=== PATIENT | female | born 1945 ===

== ENCOUNTER 2016-11-13 13:11 | Day surgery (SDC) | payer MEDICARE, BC ==
[2015-10-14 12:07] VITALS: PULSE 68
[2016-11-12 06:53] VITALS: BMI 38.4
[2016-11-13 13:41] LABS: ADD MANUAL DIFF? NO
[2016-11-13 13:45] LABS: BASO # 0.03 K/mm3 (0.0-2.0); BASO % 0.5 % (0.0-3.0); EOS # 0.3 (0.0-0.7); EOS % 5.2 % (1.5-5.0); GRAN # 3.38 (1.4-6.5); GRAN % 60.9 % (50.0-68.0); HEMATOCRIT 38.3 % (36.0-48.0); LYMPH # 1.4 (1.2-3.4); LYMPH % 25.7 % (22.0-35.0); MEAN CELL VOLUME 84.4 fL (80.0-105.0); MEAN CORPUSCULAR HEMOGLOBIN 27.8 pg (25.0-35.0); MEAN CORPUSCULAR HGB CONC 32.9 g/dl (31.0-37.0); MEAN PLATELET VOLUME 10.7 fl (7.0-11.0); MONO # 0.4 (0.1-0.6); MONO % 7.7 % (1.0-6.0); PLATELET COUNT 199 10^3/uL (120.0-450.0); RED CELL DISTRIBUTION WIDTH 15.6 % (11.5-14.5); WHITE BLOOD COUNT 5.6 10^3/ul (4.5-11.0)
[2016-11-13 13:52] LABS: CALCIUM 9.5 mg/dL (8.4-10.5)
[2016-11-13 13:55] LABS: INR 0.99 (0.93-1.08); PARTIAL THROMBOPLASTIN TIME 24.6 Seconds (23.7-30.8)
[2016-11-13] MEDS ORDERED: Lidocaine 2% Inj (20ml) ONE (14:35)
--- NOTE | 2016-11-13 14:43 | CP.SDSHP ---
Same Day Surgery H & P - History Proposed Procedure: Insertion of venous port Pre-Op Diagnosis: Breast Ca - Previous Medical/Surgical History Cardiac: Hypertension, Previous PA, Arrhythmia (A Fib), Other (CAD) Pulmonary: Asthma, Other (Sleep apnea,on CPAP) Endocrine/Metabolic: Diabetes, Obesity Misc: Other (History of detached retina L eye,arthritis ,DVT L leg,anxiety, Gastric ulcers,colon polyps,R breast Ca.Strong family history of cancer.) Pain: 0. 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 - Allergies Allergies: Allergies iodine Allergy (Intermediate, Verified 10/14/15 12:21) HIVES, ITCHING shellfish derived Allergy (Intermediate, Verified 10/14/15 12:21) HIVES, ITCHING - Physical Exam General Appearance: Elderly ,obese female Mental Status: Alert & Oriented x3 Neuro: WNL Heart: WNL Lungs: WNL - {Optional Preform as Required} Breast: Other (Old scars on R breast) Abdomen: WNL - Impression Impression: R breast Ca - Date & Time Date: 11/13/16 Time: 14:43 Short Stay Discharge - Short Stay Discharge Admitting Diagnosis/Reason for Visit: BREAST CA C50.911 Disposition: HOME/ ROUTINE Referrals: Rosmery Go MD [Primary Care Provider] -
[2016-11-13] MEDS ORDERED: Midazolam 2 MG/2 ML VIAL ONE (15:42)
[2016-11-13] MEDS ORDERED: Oxycodone/Acetaminophen 5/325 mg Tab PO PRN (16:41)
[2016-11-13] MEDS ORDERED: Sodium Chloride 0.45% 1,000 ML IV SCH (16:45)
[2016-11-13 16:46] VITALS: O2SAT 98
[2016-11-13 17:33] VITALS: RESP 20; TEMP 97.9
[2016-11-13 18:14] VITALS: BP 146/61; PULSE 60
--- NOTE | 2016-11-13 19:53 | VASCULAR ---
PROCEDURE: Ultrasound and fluoroscopic right internal jugular venous access port. CLINICAL HISTORY: Breast carcinomaVenous port for chemotherapy. PHYSICIAN(S): Satish Geronimo M.D. TECHNIQUE: The relative risks and indications of the procedure were explained to the patient and consent obtained. The patient was placed supine on the arteriogram table and the right neck and chest prepped and draped in the usual sterile fashion. Conscious sedation monitoring was provided throughout the procedure by a nurse. Antibiotics were given prior to the procedure. Under direct ultrasound guidance, the right internal jugular vein was punctured with a micro-puncture set. A 0.035 angled Glidewire was advanced into the IVC. A 4 cm incision was made at the right clavicle and the pocket blunted dissected. A 8 Italian single-lumen catheter, 21 cm long, was advanced to the SVC/RA junction. The catheter was trimmed and attached to the port. The port aspirates and injects easily. The port was placed in the pocket and closed in 2 layers. The patient tolerated the procedure well. IMPRESSION: Ultrasound and fluoroscopically placed right internal jugular venous access port.
== END 2016-11-13 19:00 | disposition home or self-care (01) ==
LOC: SDSVAS 13:11
PROVIDERS: ATTEND Radiology Vascular & Interventional Radiology
DX: C50.911 Malignant neoplasm of unspecified site of right female breast (principal); E11.9 Type 2 diabetes mellitus without complications; E66.9 Obesity, unspecified; F41.9 Anxiety disorder, unspecified; G47.30 Sleep apnea, unspecified; I10 Essential (primary) hypertension; I25.10 Atherosclerotic heart disease of native coronary artery without angina pectoris; J45.909 Unspecified asthma, uncomplicated; I25.2 Old myocardial infarction; Z86.718 Personal history of other venous thrombosis and embolism; Z86.010 Personal history of colon polyps; Z87.19 Personal history of other diseases of the digestive system; Z45.2 Encounter for adjustment and management of vascular access device; Z80.9 Family history of malignant neoplasm, unspecified; I48.91 Unspecified atrial fibrillation; M19.90 Unspecified osteoarthritis, unspecified site; H54.42 Blindness, left eye, normal vision right eye; Z86.69 Personal history of other diseases of the nervous system and sense organs

== ENCOUNTER 2016-12-03 15:27 | Inpatient (IN) | payer MEDICARE, BC ==
[2016-12-03 15:27] VITALS: PULSE 68; BMI 38.4
--- NOTE | 2016-12-03 15:57 | ED PDOC ---
Arrival/HPI - General Time Seen by Provider: 12/03/16 15:43 Historian: Patient - History of Present Illness Narrative History of Present Illness (Text): 12/03/16 15:49 A 71 year old female, whose past medical history includes diabetes, breast CA s/ p chemotherpay 2 weeks ago, [place] with non-obstructive CAD, atrial fibrillation, DVT and PE on Eliquis, presents to the emergency department complaining of worsening chest pain over the past 2 hours. Patient describes the pain as a sharp sensation radiating to left arm. Patient states she took Tylenol and Xanax , with no relief. Patient reports she received Neupogen yesterday and today. Patient notes a cough and headache but denies any fever, chills, nausea, vomiting, diarrhea, abdominal pain, urinary symptoms, shortness of breath, dizziness or any other complaints. PMD: Dr. Quintero Oncologist: Dr. Zabala Guitar Teacher: Dr. 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) Symptom Course: Worsening Quality: Other Context: Other Past Medical History - Provider Review Nursing Documentation Reviewed: Yes - Infectious Disease Hx of Infectious Diseases: None - Tetanus Immunization Tetanus Immunization: Unknown - Cardiac Hx Pacemaker: No - Pulmonary Hx Respiratory Disorders: Yes Hx Asthma: Yes - Neurological Hx Paralysis: No - HEENT Hx HEENT Disorder: Yes Hx Blind: Yes (LEFT EYE BLIND X4 YEARS) - Renal Hx Renal Disorder: No - Endocrine/Metabolic Hx Endocrine Disorders: Yes Hx Diabetes Mellitus Type 2: Yes - Hematological/Oncological Hx Blood Transfusions: No Hx Blood Transfusion Reaction: No - Integumentary Hx Dermatological Disorder: No - Musculoskeletal/Rheumatological Hx Musculoskeletal Disorders: Yes - Gastrointestinal Hx Gastrointestinal Disorders: Yes Other/Comment: RECTAL BLEEDING X2 YEARS - Genitourinary/Gynecological Hx Genitourinary Disorders: No - Psychiatric Hx Emotional Abuse: No Hx Physical Abuse: No Hx Substance Use: No - Surgical History Hx Cardiac Catheterization: Yes Other/Comment: L knee - Anesthesia Hx Anesthesia Reactions: Yes (HEART RATE DROPPED) Hx Malignant Hyperthermia: No - Suicidal Assessment Feels Threatened In Home Enviroment: No Family/Social History - Physician Review Nursing Documentation Reviewed: Yes Family/Social History: No Known Family HX Smoking Status: Never Smoked Hx Alcohol Use: No Hx Substance Use: No Hx Substance Use Treatment: No Allergies/Home Meds Allergies/Adverse Reactions: Allergies iodine Allergy (Intermediate, Verified 10/14/15 12:21) HIVES, ITCHING shellfish derived Allergy (Intermediate, Verified 10/14/15 12:21) HIVES, ITCHING Home Medications: Home Meds Medication Instructions Recorded Confirmed Linaclotide [Linzess] 1 cap PO QPM 12/25/14 11/13/16 Albuterol Sulfate [Proair Hfa] 2 puff IH BID PRN 07/30/15 11/13/16 Glimepiride [amaRYL] 4 mg PO BID 07/30/15 11/13/16 Pantoprazole [Protonix EC Tab] 40 mg PO QAM 07/30/15 11/13/16 Acetaminophen [Tylenol] 500 mg PO DAILY PRN 09/14/15 11/13/16 Insulin Glargine, Recombina 30 - 40 unit SC HS PRN 09/14/15 11/13/16 [Lantus] Insulin Lispro [humALOG] 8 - 20 units SC AC PRN 09/14/15 11/13/16 Apixaban [Eliquis] 2.5 mg PO BID 11/12/16 11/12/16 Cholecalciferol (Vitamin D3) 50,000 unit PO FRANCISCA 11/12/16 11/13/16 [Vitamin D3] Empagliflozin [Jardiance] 10 mg PO DAILY 11/12/16 11/13/16 Metoprolol Succinate [Toprol XL] 12.5 mg PO QAM 11/12/16 11/13/16 Umeclidinium [place] [Incruse 62.5 mcg IH DAILY 11/13/16 11/13/16 Ellipta] Losartan [Cozaar] 50 mg PO DAILY 12/03/16 12/03/16 Rosuvastatin Calcium [Crestor] 5 mg PO QPM 12/03/16 12/03/16 Review of Systems - Physician Review All systems were reviewed & negative as marked: Yes - Review of Systems Constitutional: absent: Fevers, Night Sweats Respiratory: Cough. absent: SOB Cardiovascular: Chest Pain Gastrointestinal: absent: Abdominal Pain, Diarrhea, Nausea, Vomiting Genitourinary Female: absent: Dysuria, Frequency, Hematuria, Urine Output Changes Neurological: Headache. absent: Dizziness Physical Exam Vital Signs Reviewed: Yes Vital Signs Temp Pulse Resp BP Pulse Ox 12/03/16 18:51 66 18 158/58 H 100 12/03/16 18:24 60 20 198/59 H 100 12/03/16 16:13 60 18 144/55 L 100 12/03/16 15:27 98.1 F 60 16 199/76 H 100 Temperature: Afebrile Blood Pressure: Hypertensive Pulse: Regular Respiratory Rate: Normal Appearance: Positive for: Well-Appearing, Non-Toxic, Comfortable Pain Distress: None Mental Status: Positive for: Alert and Oriented X 3 - Systems Exam Head: Present: Atraumatic, Normocephalic Pupils: Present: PERRL Conjunctiva: Present: Normal Mouth: Present: Moist Mucous Membranes Neck: Present: Normal Range of Motion Respiratory/Chest: Present: Clear to Auscultation, Good Air Exchange. No: Respiratory Distress, Accessory Muscle Use Cardiovascular: Present: Regular Rate and Rhythm, Normal S1, S2. No: Murmurs Abdomen: Present: Normal Bowel Sounds. No: Tenderness, Distention, Peritoneal Signs Back: Present: Normal Inspection Upper Extremity: Present: Normal Inspection. No: Cyanosis, Edema Lower Extremity: Present: Normal Inspection. No: Edema Neurological: Present: GCS=15, CN II-XII Intact, Speech Normal Skin: Present: Warm, Dry, Normal Color. No: Rashes Psychiatric: Present: Alert, Oriented x 3, Normal Insight, Normal Concentration Medical Decision Making ED Course and Treatment: 12/03/16 15:49 Impression: A 71 year old female with sharp chest pain radiating to left arm. Differential Diagnosis included but are not limited to: ACS vs. neupogen reaction vs. PE vs. muscular pain Plan: -- Chest xray -- Lung perfusion scan -- Duplex lower extremity ultrasound -- Labs -- Urine culture and Urinalysis -- Aspirin and Nitroglycerin -- Reassess and disposition EKG: NSR @ 62; normal intervals; normal axis; no ST/T changes. Prior Visits: Notes and results from previous visits were reviewed. Patient had a cardiac catheterization performed on 11/13/16. Progress Notes: 12/03/16 18:11 On re-evaluation, patient notes mild to moderate improvement in pain after receiving one sublingual nitrate. 12/03/16 19:46 Patient with noted history - given nitro with moderate relief of pain. BP much improved on nitro. EKG is normal as is CXR. Labs are nondiagnostic, including negative CE. She is on eliquis. LE doppler negative and v/q is low prob. Patient with improved cp but still present; given low dose of morphine. Case discussed with Dr. Phillips, who said to place on Dr. Quintero's service for further observation; confirmed with Dr. Quintero for her service. Will consult with Dr. Roque. - Lab Interpretations Lab Results: 12/03/16 16:00 12/03/16 16:00 Lab Results 12/03/16 16:00: Sodium 137, Potassium 4.5, Chloride 105, Carbon Dioxide 28, Anion Gap 9 L, BUN 23 H, Creatinine 1.0, Est GFR ( Amer) > 60, Est GFR ( Non-Af Amer) 55, Random Glucose 364 H* D, Calcium 8.4, Magnesium 1.8, Total Bilirubin 0.7, AST 16, ALT 36, Alkaline Phosphatase 100, Lactate Dehydrogenase 605, Total Creatine Kinase 23 L, Troponin I < 0.01, NT-Pro-B Natriuret Pep 796 H , Total Protein 5.5 L, Albumin 3.0, Globulin 2.5, Albumin/Globulin Ratio 1.2, Lipase 102 12/03/16 16:00: PT 11.2, INR 1.04, APTT 25.2 12/03/16 16:00: WBC 2.9 L* D, RBC 3.69, Hgb 10.2 L, Hct 31.5 L, MCV 85.4, MCH 27.6, MCHC 32.4, RDW 15.4 H, Plt Count 164, MPV 10.0, Gran % 61.3, Lymph % (Auto ) 23.9, Dickson % (Auto) 9.7 H, Eos % (Auto) 4.8, Baso % (Auto) 0.3, Gran # 1.77, Lymph # 0.7 L, Dickson # 0.3, Eos # 0.1, Baso # 0.01 I have reviewed the lab results: Yes - RAD Interpretation Radiology Orders: 12/03/16 15:52 DUPLEX LOWER EXTRM VEIN BILAT [US] Stat 12/03/16 15:54 CHEST ONE VIEW [RAD] Stat 12/03/16 15:56 LUNG PERF & VENT SCAN [NM] Stat - Medication Orders Current Medication Orders: Discontinued Medications Aspirin (Aspirin Chewable) 324 mg PO STAT STA Stop: 12/03/16 15:56 Last Admin: 12/03/16 16:08 Dose: 324 mg Sodium Chloride (Sodium Chloride 0.9%) 500 mls @ 999 mls/hr IV .Q31M STA Stop: 12/03/16 17:26 Last Admin: 12/03/16 18:23 Dose: 999 mls/hr Insulin Human Regular (Humulin R) 6 units IVP ONCE STA Stop: 12/03/16 16:57 Last Admin: 12/03/16 18:22 Dose: 6 units Morphine Sulfate (Morphine) 2 mg IVP STAT STA Stop: 12/03/16 18:11 Last Admin: 12/03/16 18:21 Dose: 2 mg Nitroglycerin (Nitrostat Sl Tab) 0.4 mg SL STAT STA Stop: 12/03/16 15:58 Last Admin: 12/03/16 16:10 Dose: 0.4 mg Nitroglycerin (Nitro-Bid 2% Oint) 1 ea TOP STAT STA Stop: 12/03/16 18:12 Last Admin: 12/03/16 18:21 Dose: 1 ea - Scribe Statement The provider has reviewed the documentation as recorded by the Denise Arzola Provider Scribe Attestation: All medical record entries made by the Scribe were at my direction and personally dictated by me. I have reviewed the chart and agree that the record accurately reflects my personal performance of the history, physical exam, medical decision making, and the department course for this patient. I have also personally directed, reviewed, and agree with the discharge instructions and disposition. Disposition/Present on Arrival - Present on Arrival Any Indicators Present on Arrival: Yes History of DVT/PE: Yes History of Uncontrolled Diabetes: Yes Urinary Catheter: No History Surgical Site Infection Following: None - Disposition Have Diagnosis and Disposition been Completed?: Yes Diagnosis: Uncontrolled diabetes mellitus, Chest pain Disposition: HOSPITALIZED Disposition Time: 18:30 Patient Plan: Observation, Telemetry Condition: FAIR Discharge Instructions (ExitCare): Chest Pain (ED)
[2016-12-03 16:14] LABS: ADD MANUAL DIFF? NO
[2016-12-03 16:26] LABS: BASO # 0.01 K/mm3 (0.0-2.0); BASO % 0.3 % (0.0-3.0); EOS # 0.1 (0.0-0.7); EOS % 4.8 % (1.5-5.0); GRAN # 1.77 (1.4-6.5); GRAN % 61.3 % (50.0-68.0); HEMATOCRIT 31.5 % (36.0-48.0); LYMPH # 0.7 (1.2-3.4); LYMPH % 23.9 % (22.0-35.0); MEAN CELL VOLUME 85.4 fL (80.0-105.0); MEAN CORPUSCULAR HEMOGLOBIN 27.6 pg (25.0-35.0); MEAN CORPUSCULAR HGB CONC 32.4 g/dl (31.0-37.0); MONO # 0.3 (0.1-0.6); MONO % 9.7 % (1.0-6.0); PLATELET COUNT 164 10^3/uL (120.0-450.0); RED CELL DISTRIBUTION WIDTH 15.4 % (11.5-14.5)
[2016-12-03 16:30] LABS: INR 1.04 (0.93-1.08); PARTIAL THROMBOPLASTIN TIME 25.2 Seconds (23.7-30.8)
[2016-12-03 16:31] LABS: ALB/GLOB RATIO 1.2 (1.1-1.8); ALKALINE PHOSPHATASE 100 U/L (38-133); ALT/SGPT 36 U/L (7-56); AST/SGOT 16 U/L (15-39); BILIRUBIN,TOTAL 0.7 mg/dL (0.2-1.3); BLOOD UREA NITROGEN 23 mg/dL (7-21); CALCIUM 8.4 mg/dL (8.4-10.5); CARBON DIOXIDE 28 mmol/L (21-33); CHLORIDE 105 mmol/L (98-107); GFR AFRICAN-AMERICAN > 60; LIPASE 102 U/L (23-300); MAGNESIUM 1.8 mg/dL (1.7-2.2); POTASSIUM 4.5 mmol/L (3.6-5.0); SODIUM 137 mmol/L (132-148); TOTAL PROTEIN 5.5 g/dL (5.8-8.3); WHITE BLOOD COUNT 2.9 10^3/ul (4.5-11.0)
[2016-12-03 16:33] LABS: GLUCOSE,RANDOM 364 mg/dL (70-110)
[2016-12-03 16:46] LABS: TROPONIN I < 0.01 ng/mL
[2016-12-03] MEDS ORDERED: Insulin Regular 1 UNITS/0.01 ML ML IVP STA (16:56)
[2016-12-03] MEDS ORDERED: Sodium Chloride 0.9% 500 ML IV STA (16:56)
[2016-12-03] MEDS ORDERED: Morphine 2 mg/ml ISec IVP STA (18:10)
[2016-12-03] MEDS ORDERED: Nitroglycerin 2% Ointment Foilpak UD TOP STA (18:11)
--- NOTE | 2016-12-03 18:26 | NM ---
VQ scan Technique: 30.0 mCi DTPA inhaled. 3.3 mCI technetium 99-m MAA administered intravenously Correlation is made to chest x-ray of same day. Findings: Perfusion images do not show a mismatched segmental defect. Activity extends expected margin of the lung periphery. Hilar clumping of radiopharmaceutical may represent underlying COPD. Mild tracheal activity related to the DTPA incidentally noted. Impression: Low probability for pulmonary embolus.
--- NOTE | 2016-12-03 18:29 | RAD ---
HISTORY: cp COMPARISON: Chest x-ray performed 10/16/15 TECHNIQUE: Chest, one view. FINDINGS: Right IJ approach central venous catheter extends the cavoatrial junction. Examination limited by habitus. LUNGS: No focal consolidation. Please note that chest x-ray has limited sensitivity for the detection of pulmonary masses. PLEURA: No significant pleural effusion identified. No definite pneumothorax . CARDIOVASCULAR: Mild cardiomegaly. OSSEOUS STRUCTURES: Degenerative changes. VISUALIZED UPPER ABDOMEN: Unremarkable. OTHER FINDINGS: None. IMPRESSION: Right IJ approach central venous catheter extends the cavoatrial junction. Mild cardiomegaly.
[2016-12-03] MEDS ORDERED: Morphine 2 mg/ml ISec IVP PRN (20:20)
[2016-12-03] MEDS ORDERED: Nitroglycerin 2% Ointment Foilpak UD TOP PRN (20:20)
--- NOTE | 2016-12-03 21:10 | CON ---
DATE: 12/03/[address] Zabala. CHIEF COMPLAINT: Chest pain. HISTORY OF PRESENT ILLNESS: The patient is a 71-year-old female seen earlier today in Dr. Zabala's office for Neupogen treatment as she is being treated for breast cancer. With Neupogen given yesterd ay and today with the patient now reporting retrosternal chest discomfort for approximately 7 or 8/10 , nonradiating for the past 1-2 hours. There is minimal radiation to the left arm. The patient did take Xanax and Tylenol without relief with the patient now being admitted for observation through the Emergency Room as per Dr. Go and Dr. Tolentino. At present, she appears comfortable and in no acute distress after treatment given. ALLERGIES: IODINE AND SHELLFISH. MEDICATIONS: Include as of 11/18/16, Losartan HCT 100/12.5, Eliquis 2.5 mg twice a day, metoprolol, folic acid, vitamin D, Protonix, atropine eyedrops, Jardiance, Crestor, glimepiride, Linzess, Lantus insulin, Humalog insulin, ProAir inhaler, Incruse Ellipta, Brovana. PAST MEDICAL HISTORY: Significant for arteriosclerotic vascular heart disease, atrial fibrillation, hypertension, asthma, blindness in the left eye, diabetes mellitus, arthritis, history of rectal blee d, history of heart attack, HI, detached retina, cellulitis of the foot, depression, tachybrady syndr ome, obesity, hypercoagulable state with positive MTHFR gene. The patient also suffers from breast cancer stage I for which she is being treated and for which Neup ogen was given yesterday and today. It should be noted that the patient did have a similar episode where she was admitted for chest pain on 10/14/2015 with HI ruled out at that time. She was taking Coumadin at the time of workup as per Cindy Roque with an abnormal stress test then with a history of DVT also at that time and the patient is now on Eliquis as her anticoagulant. FAMILY HISTORY AND SOCIAL HISTORY: Noncontributory. Nonsmoker and non-ethanol. REVIEW OF SYSTEMS: Essentially negative to questioning except as above. PHYSICAL EXAMINATION: VITAL SIGNS: Temperature 98.1, pulse 66, respirations 18, blood pressure 131/ , pulse ox 100%. HEENT: She is blind in the left eye, otherwise unremarkable. NECK: Supple. HEART: Tachy rate, regular rhythm. Occasional ectopic beat. LUNGS: Clear. ABDOMEN: Soft, obese, nontender. EXTREMITIES: No edema. SKIN: Warm, dry and clear. NEUROLOGIC: Awake, alert and oriented. The patient's weight is 206 pounds, height is 5 feet 2 inches. LABORATORY DATA: The patient's labs were done. White blood cell count of 2.9 with an absolute neutr ophil count of 1.7, hemoglobin 10.2, hematocrit 31.5, platelet count of 164,000. INR of 1.04 with a chem panel showing a nonfasting glucose of 364, BUN of 22 with a normal creatinine of 1.0. Troponin less than 0.01, B-natriuretic peptide is 796. Otherwise, normal chem panel. The patient did have a VQ scan done earlier today. The impression was a low probability for pulmonar y embolism. She had a chest x-ray done earlier today. It was read as right IJ approach central veno us catheter extends to the cavoatrial junction, mild cardiomegaly. She had an EKG done, which was re ad by Dr. Tolentino as normal sinus rhythm at 62. No ST-T changes. She had a Doppler ultrasound of the lower extremities which is to be read. ASSESSMENT: Chest pain, rule out cardiac etiology versus secondary to Neupogen; diabetes mellitus, h ypercoagulable state on Eliquis, blindness in the left eye, arteriosclerotic vascular heart disease, hypertension, asthma, degenerative joint disease, history of rectal bleed, depression, anxiety, gastr oesophageal reflux disease, neutropenia for which the patient did get Neupogen for the past 2 days as she is status post treatment recently with Dr. Zabala in the office. PLAN: After conversation with Dr. Zabala and Dr. Tolentino, we will admit the patient to her primary do ctor, Dr. Go's service with consult with Dr. Roque, cardiology, who knows the patient. W e will monitor clinically. Labs will be drawn in the morning with serial cardiac enzymes, troponin, with diabetic medicines restarted as per Dr. Go with nitro paste p.r.n. q. 6 hours to be continued, with oxygen to continue. Prognosis for this patient is guarded. We will monitor clinica lly and with labs. Paul Phillips MD cc: [phone] TT: 12/03/2016 21:09:23 Confirmation # [id number] Dictation # [id number] mn
[2016-12-03] MEDS: Insulin Reg-MEDIUM-Coverage SC SCH (21:54)
--- NOTE | 2016-12-03 22:07 | CARD ---
APPROVED REPORT EKG Measurement Heart [id number] <Conclusion> Normal sinus rhythm Normal ECG
[2016-12-03] MEDS: Insulin Detemir 100 units/ml Vial (Levemir) SC SCH (23:04)
[2016-12-04] MEDS ORDERED: cefTRIAXone 1 gm 1 GM/100 ML BAG IVPB STA (02:20)
--- NOTE | 2016-12-04 02:45 | CP.PCM.PN ---
Subjective - Date & Time of Evaluation Date of Evaluation: 12/04/16 Time of Evaluation: 02:32 - Subjective Subjective: I was on the floor.Nurse tells me that troponin level is 0.03 and temp. is 100.9 *F. Patient was seen at bedside. Complains of cold , congestion, sore throat, cough, with yellow phlegm, had chills when came to ER, also has increased frequency of urination.Denies having infection in skin. Has no other complaints. This 71 year old woman came to ER with chest pain. Has PMH of breast cancer, HTN, DE, atrial fibrillation, DM, asthma, depression, blindness in left eye, atrterisclerotic heart disease. Objective - Vital Signs/Intake and Output Vital Signs (last 24 hours): Temp Pulse Resp BP Pulse Ox 100.9 F H 61 20 161/58 H 94 L 12/04/16 01:46 12/04/16 02:00 12/04/16 00:01 12/04/16 00:01 12/03/16 23:36 - Medications Medications: Current Medications Acetaminophen (Tylenol 325mg Tab) 650 mg PO Q6H PRN PRN Reason: Fever >100.4 F Last Admin: 12/04/16 01:46 Dose: 650 mg Alprazolam (Xanax) 0.125 mg PO BID PRN; Protocol PRN Reason: Anxiety Stop: 12/10/16 20:18 Apixaban (Eliquis) 2.5 mg PO BID NIEVES PRN Reason: Protocol Last Admin: 12/03/16 20:13 Dose: 2.5 mg Arformoterol Tartrate (Brovana) 15 mcg IH [id number] [facility] Atorvastatin Calcium (Lipitor) 10 mg PO DIN [facility] Last Admin: 12/03/16 20:13 Dose: 10 mg Folic Acid (Folic Acid) 1 mg PO DAILY NIEVES Glimepiride (Amaryl) 4 mg PO DAILY [facility] Ceftriaxone Sodium (Rocephin 1 Gram Ivpb) 1 gm in 100 mls @ 200 mls/hr IVPB STAT STA PRN Reason: Protocol Stop: 12/04/16 02:49 Insulin Detemir (Levemir) 30 unit SC HS [facility] Last Admin: 12/03/16 23:04 Dose: 30 unit Insulin Human Regular (Humulin R Med) 0 units SC ACHS NIEVES PRN Reason: Protocol Last Admin: 12/03/16 21:54 Dose: Not Given Losartan Potassium (Cozaar) 100 mg PO DAILY [facility] Metoprolol Tartrate (Lopressor) 12.5 mg PO BID [facility] Last Admin: 12/03/16 20:14 Dose: Not Given Morphine Sulfate (Morphine) 1 mg IVP Q3H PRN PRN Reason: Pain, severe (8-10) Nitroglycerin (Nitro-Bid 2% Oint) 1 ea TOP Q6H PRN PRN Reason: Pain, moderate (4-7) Last Admin: 12/04/16 01:43 Dose: 1 ea Pantoprazole Sodium (Protonix Ec Tab) 20 mg PO DAILY [facility] - Labs Labs: PT 11.2 Seconds (9.9-11.8) 12/03/16 16:00 INR 1.04 (0.93-1.08) 12/03/16 16:00 APTT 25.2 Seconds (23.7-30.8) 12/03/16 16:00 Assessment and Plan - Assessment and Plan (Free Text) Assessment: Fever. Chest pain. R/O PNA. R/O UTI. Breast cancer. HTN. DM. Arteriosclerotic heart disease. Plan: Tylenol 650 mg PO x 1. Repeat troponin in AM. CBC with Diff.stat. Blood cultures stat. UA stat Urine c & S stat. Sputum for culture stat. Rocephin 1 GM IV stat. May need to repeat CXR. Continue present management.
[2016-12-04 02:46] LABS: HEMATOCRIT 29.3 % (36.0-48.0); MEAN CELL VOLUME 84.4 fL (80.0-105.0); MEAN CORPUSCULAR HEMOGLOBIN 27.1 pg (25.0-35.0); MEAN CORPUSCULAR HGB CONC 32.1 g/dl (31.0-37.0); PLATELET COUNT 131 10^3/uL (120.0-450.0); RED CELL DISTRIBUTION WIDTH 15.4 % (11.5-14.5); WHITE BLOOD COUNT 3.6 10^3/ul (4.5-11.0)
[2016-12-04 03:01] LABS: ADD MANUAL DIFF? YES
[2016-12-04 04:13] LABS: BAND 3 % (0-2); EOSINOPHIL 2 % (0.0-3.0); NEUTROPHIL 64 % (50.0-70.0)
[2016-12-04 06:17] LABS: ADD MANUAL DIFF? NO
[2016-12-04 06:26] LABS: BASO # 0.04 K/mm3 (0.0-2.0); BASO % 1.1 % (0.0-3.0); EOS # 0.2 (0.0-0.7); EOS % 4.1 % (1.5-5.0); GRAN # 2.39 (1.4-6.5); HEMATOCRIT 29.8 % (36.0-48.0); LYMPH # 0.8 (1.2-3.4); LYMPH % 20.9 % (22.0-35.0); MEAN CELL VOLUME 85.1 fL (80.0-105.0); MEAN CORPUSCULAR HEMOGLOBIN 27.4 pg (25.0-35.0); MEAN CORPUSCULAR HGB CONC 32.2 g/dl (31.0-37.0); MEAN PLATELET VOLUME 9.6 fl (7.0-11.0); MONO # 0.3 (0.1-0.6); MONO % 9.2 % (1.0-6.0); PLATELET COUNT 147 10^3/uL (120.0-450.0); RED CELL DISTRIBUTION WIDTH 15.6 % (11.5-14.5); WHITE BLOOD COUNT 3.7 10^3/ul (4.5-11.0)
[2016-12-04 06:32] LABS: GRAN % 64.7 % (50.0-68.0)
[2016-12-04 06:40] LABS: URINE BILIRUBIN NEGATIVE (NEGATIVE); URINE BLOOD NEGATIVE (NEGATIVE); URINE GLUCOSE (UA) >=1000 mg/dL (NEGATIVE); URINE KETONE NEGATIVE (NEGATIVE); URINE LEUKOCYTE ESTERASE NEGATIVE Leu/uL (NEGATIVE); URINE PROTEIN >=300 mg/dL (<30 mg/dL); URINE UROBILINOGEN 0.2 E.U./dL (<1 E.U./dL)
[2016-12-04 06:40] LABS: ALB/GLOB RATIO 1.1 (1.1-1.8); BILIRUBIN,TOTAL 0.5 mg/dL (0.2-1.3); POTASSIUM 4.1 mmol/L (3.6-5.0); TOTAL PROTEIN 5.1 g/dL (5.8-8.3)
[2016-12-04 06:53] LABS: TROPONIN I 0.03 ng/mL
[2016-12-04 07:12] LABS: URINE APPEARANCE SL CLOUDY (CLEAR); URINE COLOR YELLOW (YELLOW)
[2016-12-04 07:17] LABS: URINE BACTERIA MOD (NEG); URINE RBC 0 - 2 /hpf (0-2); URINE WBC 0 - 2 /hpf (0-6)
[2016-12-04] MEDS: Arformoterol 15 mcg/2 ml Inh Sol IH SCH ×2 (07:48→19:56)
[2016-12-04] MEDS: Insulin Reg-MEDIUM-Coverage SC SCH ×4 (08:17→21:56)
--- NOTE | 2016-12-04 08:52 | US ---
HISTORY: Leg pain and swelling. Evaluate for DVT PHYSICIAN(S): Satish Geronimo MD. TECHNIQUE: Duplex sonography and color-flow Doppler with graded compression were used to evaluate the deep venous systems of both lower extremities. FINDINGS: The visualized deep venous systems of both lower extremities are sonographically normal and compressible. Normal wave forms and augmentation are seen. There is no sonographic evidence for deep venous thrombosis in the visualized segments of both lower extremities. IMPRESSION: No sonographic evidence for deep venous thrombosis in the visualized segments of both lower extremities.
[2016-12-04] MEDS: Pantoprazole 20 mg EC Tab PO SCH (09:33)
--- NOTE | 2016-12-04 10:02 | HP ---
CHIEF COMPLAINT: Substernal chest pain radiating to the left ribs for 1 day. HISTORY OF PRESENT ILLNESS: A 79-year-old female with history of type 2 diabetes mellitus, asthma, coronary artery disease and newly diagnosed breast cancer. The patient is undergoing chemotherapy. She just had second dose of chemotherapy last week and then Neupogen shot 2 days ago. The patient was evaluated in oncologist's office when complained about substernal chest pain that started earlier today with pain radiating to the left ribs and lateral chest. The patient denied any diaphoresis, heart palpitation, dizziness. The patient had slight dry cough when in Emergency Room. PAST MEDICAL HISTORY: Significant for type 2 diabetes mellitus, hypertension, hyperlipidemia, coronary artery disease, status post cardiac catheterization in October of last year with nonobstructive CAD. The patient developed breast cancer last year, currently undergoing chemotherapy with Dr. Zabala. The patient has history of asthma, osteoarthritis, atrial fibrillation. MEDICATIONS: The patient is currently on anticoagulation with Eliquis 2.5 mg twice a day. Her present medications: Lantus 30 units at night, Humalog 5-10 units with meals, Crestor 5 mg daily, metoprolol 12.5 mg daily, Protonix 40 mg daily, Brovana twice a day, glimepiride 4 mg twice a day, vitamin D 50,000 weekly, alprazolam 0.125 at night. ALLERGIES: THE PATIENT HAS KNOWN ALLERGIES TO IODINE, SHELLFISH, but no allergy to medications. FAMILY HISTORY: Significant for coronary artery disease and diabetes. SOCIAL HISTORY: The patient denies any smoking, alcohol or any drug use. The patient is retired. She lives with her . The patient is independent of activity of daily living. REVIEW OF SYSTEMS: The patient denies any loss of appetite, weight loss. She denied any fever at home. She denies any sore throat, nasal congestion. The patient complains of some dry cough, but denies any shortness of breath. The patient has chest pain radiating to the left ribs and lateral chest. Denies any diaphoresis. She experienced heart palpitations sometimes. Denies any dizziness or loss of consciousness. The patient has occasional epigastric pain and heartburn. Denies any nausea, vomiting, diarrhea or rectal bleeding. The patient denies any flank pain, dysuria, or hematuria. She complains of back pain and knee problems. The patient denies any blurry vision, numbness, weakness, loss of consciousness or headaches. The patient has anxiety, but denies any depression or suicidal thoughts. PHYSICAL EXAMINATION: VITAL SIGNS: The patient had fever this morning 100.9. During evaluation, her temperature is 98.6, her pulse is 93 , blood pressure 126/63, respiratory rate 20, oxygen saturation is 96% on 2 L nasal cannula. GENERAL: The patient is alert, awake, oriented. HEENT: Head is normocephalic, atraumatic. Oral mucosa is moist. NECK: Supple, no neck masses. LUNGS: Clear to auscultation. No wheezing. HEART: With ____ rhythm, 80 per minute. ABDOMEN: Soft, nontender, nondistended. There is tenderness of lower sternum and left anterior rib area on palpation. EXTREMITIES: With no edema, cyanosis or clubbing. DIAGNOSTIC TESTS: Her EKG in the Emergency Room showed normal sinus rhythm with no ST changes. Chest x-ray was negative for any infiltration. Her VQ scan was negative for PE. LABORATORY TESTS: Significant for leukopenia 2.9 with hemoglobin 10.2, hematocrit 31.5, and platelet count 164. This morning, her WBC improved and is at 3.7 with hemoglobin 9.6. Her chemistry was normal. Her troponin first set was normal at 0.01. Repeated troponin was 0.03 on 2 occasions. Her first random glucose was very high at 364. This morning, her sugar was 144. Her BNP was 796. Urine was clear. ASSESSMENT: 1. A 71-year-old female with history of breast cancer, type 2 diabetes, coronary artery disease, who presented with anterior chest pain with normal EKG and negative troponin. Due to multiple cardiovascular risk factors, we will monitor with cardiac enzymes to rule out any acute coronary syndrome; however, possibility of muscular pain or pain related to her Neupogen shot should be considered. 2. New onset of fever, rule out sepsis, rule out inflammatory response. 3. Type 2 diabetes mellitus. 4. Leukopenia secondary to chemotherapy. PLAN OF TREATMENT: The patient will be monitored for any increase of troponin. The patient will be evaluated by senior systems analyst. Oncologist was also called on consult to help us to manage her leukopenia. Due to new onset of fever, the patient had septic workup done. This morning. Rocephin, first dose was done. I also ordered procalcitonin, ask infectious disease specialist for evaluation. Rosmery Go MD cc: [id number] TT: 12/04/2016 10:02:12 mi GOINS
[2016-12-04] MEDS ORDERED: Vancomycin 1gm in NS 250ml 1 GM/250 ML BAG IVPB STA (10:07)
[2016-12-04] MEDS: Meropenem 1g/NS 100mL IVPB 1 GM/100 ML PIGGYBACK IVPB SCH (10:46)
--- NOTE | 2016-12-04 15:13 | CON ---
DATE: 12/04/2016 REASON FOR CONSULTATION: Chest pain, cardiac evaluation, history of paroxysmal atrial fibrillation. BRIEF CLINICAL HISTORY: This is a 71-year-old female with a past medical history significant for hyp ercoagulable state, paroxysmal atrial fibrillation, status post cardiac catheterization, normal coron mariely, seen in Dr. Zabala's office, getting for Neupogen. The patient, after Neupogen, developed ch est pain, history of breast cancer with complaining of retrosternal chest pain with minimal radiation to the chest. The patient took Xanax and Tylenol, but not relieved. The patient also complained of cough and the chest pain associated with after having cough. The patient denies any chest pain now. PAST MEDICAL HISTORY: Significant for breast CA, history of hypercoagulable state, history of DVT, h istory of PE, history of multiple catheterizations negative, history of paroxysmal atrial fibrillatio n, was on Coumadin, multiple catheterizations done by Dr. Satish Young, Dr. Garg, Dr. Gutierrez. Last str ess test 02/2015 was positive and the patient had a stress that showed normal coronaries. PREVIOUS CARDIAC WORKUP: The patient had echocardiography 12/26/2014 that shows normal LV function, L VH, aortic valve sclerosis without stenosis, dilated left atrium, mild calcification, mild to moderat e tricuspid regurgitation, tricuspid valve thickening. Cardiac catheterization on 10/18/2015 that rev ealed essentially nonobstructive coronary artery disease, limited only to distal LAD, diffusely disea sed 55%, preserved LV function, ejection fraction 60%-65%, EDP was in the 20-25, paroxysmal atrial fi brillation, history of DVT, history of PE, medical treatment recommended. Prior to that, patient had a catheterization by Dr. Ike Gutierrez, Dr. Young also negative. As mentioned, last echo 12/26/2014 at the [facility] that shows LVH, good LV function, aortic valve sclerosis without stenosis, dila radha left atrium. REVIEW OF SYSTEMS: As per HPI. CURRENT MEDICATIONS: The patient is taking at home Xanax, Tylenol, ProAir, Eliquis 2.5 b.i.d., befor e patient was on Coumadin for history of DVT, PE, paroxysmal atrial fibrillation, metoprolol tartrate 12.5 mg, Crestor and Ellipta. REVIEW OF SYSTEMS: A 14-point is negative except HPI. PHYSICAL EXAMINATION: VITAL SIGNS: Temperature afebrile, heart rate 66, blood pressure 154/49. HEENT: PERRLA. Extraocular muscles intact. NECK: Supple. No carotid bruits. No thyromegaly. CHEST: Clear to auscultation. HEART: S1, S2 regular. ABDOMEN: Soft. EXTREMITIES: Clubbing, cyanosis negative. EKG shows normal sinus at rate of 62. BLOOD WORKUP: WBC 3.7, hemoglobin 9.3, hematocrit 29.6, platelet count 147. Chemistry shows sodium 137, potassium 4.1, chloride 105, carbon dioxide , anion gap of 7, BUN , creatinine 1.1. T roponin 0.01, 0.01 x 3 negative. Total protein 5.2, albumin 2.6, albumin/globulin ratio 1.1. Trigly cerides 113, cholesterol 107, LDL 45, HDL 54. IMPRESSION: Atypical chest pain, possible bronchitis, obesity, poorly controlled diabetes manifested by hemoglobin A1c 11.6, status post cardiac catheterization. Most recently, cardiac catheterization dated 10/18/2015 that shows nonobstructive coronary artery disease, limited only to distal left anter ior descending disease diffusely, no focal flow-limiting stenosis. Ejection fraction 60%-65%, end-di astolic pressure in the range of 20-25, history of paroxysmal atrial fibrillation, deep venous thromb osis, history of pulmonary embolism, poorly controlled diabetes as mentioned, cough, bronchitis, hist ory of deep venous thrombosis, history of pulmonary embolism, history of neutropenia on Neupogen. RECOMMENDATION: We will discontinue telemetry. Continue aggressive medical treatment. Emphasis on weight reduction, compliance with the medication. The patient was on Coumadin, but was noncompliant, so patient switched over to Eliquis. We will follow with you. No further cardiac workup is planned . Thank you, Dr. Quintero, for providing us the opportunity in taking care of the patient. Emerald Roque MD cc:Rosmery Go MD [phone] TT: 12/04/2016 15:12:34 Confirmation # [id number] Dictation # [id number] en
--- NOTE | 2016-12-04 18:07 | CP.PCM.CON ---
History of Present Illness - History of Present Illness History of Present Illness: 71 year old female with PMH of HTN, DM, atrial fibrillation, history of COPD, CAD, history of right leg cellulitis, S/P hemorrhoidectomy, history of pyelonephritis, breast CA S/P chemotherapy 2 weeks ago, history of DVT and PE was brought in to [facility] ([facility] because of worsening chest pain that started yesterday with radiation to the left arm. It was unrelieved by pain medications. She denies SOB or cough, no chills, but did have a fever in the ED. She denies nausea or vomiting, no abdominal pain, no diarrhea, no dysuria, no dizziness. Because of the fever, Infectious Diseases consult is requested to further evaluate and manage. Review of Systems - Review of Systems All systems: reviewed and no additional remarkable complaints except (as per HPI ) Past Patient History - Infectious Disease Hx of Infectious Diseases: None - Tetanus Immunizations Tetanus Immunization: Unknown - Past Social History Smoking Status: Never Smoked - CARDIAC Hx Cardiac Disorders: Yes Hx Hypertension: Yes - PULMONARY Hx Respiratory Disorders: Yes Hx Asthma: Yes - NEUROLOGICAL Hx Neurological Disorder: No - HEENT Hx HEENT Problems: No - RENAL Hx Chronic Kidney Disease: No - ENDOCRINE/METABOLIC Hx Endocrine Disorders: Yes Hx Diabetes Mellitus Type 1: Yes - HEMATOLOGICAL/ONCOLOGICAL Hx Blood Disorders: No - INTEGUMENTARY Hx Dermatological Problems: No - MUSCULOSKELETAL/RHEUMATOLOGICAL Hx Musculoskeletal Disorders: No Hx Falls: No - GASTROINTESTINAL Hx Gastrointestinal Disorders: No - GENITOURINARY/GYNECOLOGICAL Hx Genitourinary Disorders: No - PSYCHIATRIC Hx Psychophysiologic Disorder: No Hx Anxiety: Yes Hx Depression: Yes - SURGICAL HISTORY Hx Surgeries: Yes - ANESTHESIA Hx Anesthesia Reactions: Yes (HEART RATE DROPPED) Hx Malignant Hyperthermia: No Meds Allergies/Adverse Reactions: Allergies Allergy/AdvReac Type Severity Reaction Status Date / Time iodine Allergy Intermediate HIVES, Verified 10/14/15 12:21 ITCHING shellfish derived Allergy Intermediate HIVES, Verified 10/14/15 12:21 ITCHING - Medications Medications: Current Medications Acetaminophen (Tylenol 325mg Tab) 650 mg PO Q6H PRN PRN Reason: Fever >100.4 F Last Admin: 12/04/16 01:46 Dose: 650 mg Alprazolam (Xanax) 0.125 mg PO BID PRN; Protocol PRN Reason: Anxiety Stop: 12/10/16 20:18 Apixaban (Eliquis) 2.5 mg PO BID [facility] PRN Reason: Protocol Last Admin: 12/04/16 09:31 Dose: 2.5 mg Arformoterol Tartrate (Brovana) 15 mcg IH [id number] [facility] Last Admin: 12/04/16 07:48 Dose: 15 mcg Atorvastatin Calcium (Lipitor) 10 mg PO DIN [facility] Last Admin: 12/03/16 20:13 Dose: 10 mg Folic Acid (Folic Acid) 1 mg PO DAILY [facility] Last Admin: 12/04/16 09:32 Dose: 1 mg Glimepiride (Amaryl) 4 mg PO DAILY [facility] Last Admin: 12/04/16 09:31 Dose: 4 mg Insulin Detemir (Levemir) 30 unit SC HS [facility] Last Admin: 12/03/16 23:04 Dose: 30 unit Insulin Human Regular (Humulin R Med) 0 units SC ACHS [facility] PRN Reason: Protocol Last Admin: 12/04/16 08:17 Dose: Not Given Losartan Potassium (Cozaar) 100 mg PO DAILY [facility] Last Admin: 12/04/16 09:32 Dose: 100 mg Metoprolol Tartrate (Lopressor) 12.5 mg PO BID [facility] Last Admin: 12/04/16 09:33 Dose: 12.5 mg Morphine Sulfate (Morphine) 1 mg IVP Q3H PRN PRN Reason: Pain, severe (8-10) Nitroglycerin (Nitro-Bid 2% Oint) 1 ea TOP Q6H PRN PRN Reason: Pain, moderate (4-7) Last Admin: 12/04/16 01:43 Dose: 1 ea Pantoprazole Sodium (Protonix Ec Tab) 20 mg PO DAILY [facility] Last Admin: 12/04/16 09:33 Dose: 20 mg Physical Exam - Constitutional Appears: Non-toxic, No Acute Distress - Head Exam Head Exam: NORMAL INSPECTION - ENT Exam ENT Exam: Mucous Membranes Moist - Neck Exam Neck exam: Negative for: Lymphadenopathy, Meningismus - Respiratory Exam Respiratory Exam: Decreased Breath Sounds - Cardiovascular Exam Cardiovascular Exam: +S1, +S2 - GI/Abdominal Exam GI & Abdominal Exam: Soft. absent: Tenderness Results - Vital Signs Recent Vital Signs: Last Vital Signs Temp 98.6 F 12/04/16 05:51 Pulse 64 12/04/16 09:32 Resp 20 12/04/16 05:51 BP 157/49 H 12/04/16 09:32 Pulse Ox 96 12/04/16 05:51 - Labs Result Diagrams: 12/04/16 06:10 12/04/16 06:10 Assessment & Plan - Assessment and Plan (Free Text) Plan: Assessment systemic inflammatory response syndrome, consider secondary to chest pain, atypical R/O sepsis source to be determined breast cancer on chemotherapy, last session 2 weeks ago history of DVT and PE history of Urinary tract infection / pyelonephritis HTN DM COPD atrial fibrillation history of DVT hypercoagulopathy with homozygous MGHFR mutation CAD S/P hemorrhoidectomy Plan started patient on a dose of IV Vancomycin and started Merrem pending blood cx, urine cx; follow up CXR results; PCT is normal at 0.18 Will monitor clinical response and follow up Cardiology evaluation and recommendations
--- NOTE | 2016-12-04 21:17 | PN ---
DATE: 12/04/2016 This is patient's hospital visit on the telemetry floor. For Dr. Zabala. SUBJECTIVE: The patient is a 71-year-old female admitted via the Emergency Room for severe chest john n, 7 or 02/12, being brought from Dr. Zabala's office after injection of Neupogen was given, day 2, a s patient is being treated for breast cancer stage I with chemotherapy completed and Neupogen being g iven. Unfortunately, patient has history of severe chest pain with history of one year prior and is known to have ASCVD along with diabetes mellitus with the precaution taken for the patient to be admi tted for observation overnight with evaluation as per cardiology. At present, the patient reports sh e is pain free with possible discharge home as per Dr. Quintero, her attending physician. She is oth erwise now seen sitting up in no acute distress. OBJECTIVE: PHYSICAL EXAMINATION: VITAL SIGNS: Temperature 99, pulse 66, respirations 21, blood pressure 176/60 with pulse ox of 96%. HEENT: Unremarkable. She is blind in her left eye. NECK: Supple. HEART: Regular rate, occasional ectopic beat. LUNGS: Clear. ABDOMEN: Obese, soft, and nontender. EXTREMITIES: No edema. SKIN: Warm, dry and clear. NEUROLOGIC: Awake, alert, and oriented x 3. LABORATORY DATA: The patient's labs were done. White blood cell count 3.7, up from 2.9 yesterday, h emoglobin 9.6, hematocrit of 29.8, platelet count of 147,000 with an absolute neutrophil count of 2.3 9 up from 1.7 yesterday. Her chem metabolic panel showed a normal chem metabolic panel with nonfasti ng glucose of 144, total protein 5.1. Procalcitonin was 0.1. Urinalysis showed no blood, protein or sugar in the urine. The patient did have a VQ scan yesterday showing low probability of pulmonary embolus. Her EKG showe d normal sinus rhythm, normal EKG with a Doppler ultrasound of her lower extremities showing no evide nce of DVT bilateral lower extremities. Chest x-ray was also done and was read as mild cardiomegaly with a port on the right chest wall. The patient's troponin was done twice, 0.03 both values, with a B-natriuretic peptide of 796. Hemogl obin A1c, however, was done and was known to be 11.5. ASSESSMENT: Chest pain, atypical, poorly controlled diabetes mellitus, arteriosclerotic cardiovascul ar disease, status post cardiac catheterizations, history of atrial fibrillation, history of hypercoa gulable state with positive MTHFR gene, blindness in the left eye, history of myocardial infarction, hypertension, history of atrial fibrillation, gastroesophageal reflux disease, neutropenia for which the patient did get Neupogen and recently diagnosed breast cancer stage I, for which patient is being treated actively. The patient does have a history of deep venous thrombosis. PLAN: The patient is to continue present medical regimen. Continue her Eliquis along with present m edical regimen as per Dr. Roque and Dr. Quintero with followup in the office in 3-5 days' time for res umption of treatment as per Dr. Zabala's protocols and recommendations. Paul Phillips MD cc: [phone] TT: 12/04/2016 21:17:27 Confirmation # [id number] Dictation # [id number] eunice
[2016-12-04] MEDS: Insulin Detemir 100 units/ml Vial (Levemir) SC SCH (21:57)
--- NOTE | 2016-12-04 23:48 | CP.PCM.PN ---
Subjective - Subjective Subjective: 175/55, 72/min. 98.3*F 83% 3l/min. fsbs 273 mg%. Objective - Vital Signs/Intake and Output Vital Signs (last 24 hours): Temp Pulse Resp BP Pulse Ox 99.5 F 64 20 132/77 96 12/04/16 18:00 12/04/16 18:00 12/04/16 18:00 12/04/16 18:00 12/04/16 05:51 Intake and Output: 12/04/16 12/05/16 18:59 06:59 Intake Total 360 Output Total 400 Balance -40 - Medications Medications: Current Medications Acetaminophen (Tylenol 325mg Tab) 650 mg PO Q6H PRN PRN Reason: Fever >100.4 F Last Admin: 12/04/16 01:46 Dose: 650 mg Alprazolam (Xanax) 0.125 mg PO BID PRN; Protocol PRN Reason: Anxiety Stop: 12/10/16 20:18 Last Admin: 12/04/16 22:37 Dose: 0.125 mg Apixaban (Eliquis) 2.5 mg PO BID [facility] PRN Reason: Protocol Last Admin: 12/04/16 17:35 Dose: 2.5 mg Arformoterol Tartrate (Brovana) 15 mcg IH [id number] [facility] Last Admin: 12/04/16 19:56 Dose: 15 mcg Atorvastatin Calcium (Lipitor) 10 mg PO DIN [facility] Last Admin: 12/04/16 17:35 Dose: 10 mg Folic Acid (Folic Acid) 1 mg PO DAILY [facility] Last Admin: 12/04/16 09:32 Dose: 1 mg Glimepiride (Amaryl) 4 mg PO DAILY [facility] Last Admin: 12/04/16 09:31 Dose: 4 mg Meropenem 1g/NS 100mL IVPB (Meropenem 1g/Ns 100ml Ivpb) 1 gm in 100 mls @ 100 mls/hr IVPB Q12 [facility] PRN Reason: Protocol Stop: 12/11/16 10:16 Last Admin: 12/04/16 10:46 Dose: 100 mls/hr Insulin Detemir (Levemir) 30 unit SC HS [facility] Last Admin: 12/04/16 21:57 Dose: 30 unit Insulin Human Regular (Humulin R Med) 0 units SC ACHS [facility] PRN Reason: Protocol Last Admin: 12/04/16 21:56 Dose: Not Given Losartan Potassium (Cozaar) 100 mg PO DAILY [facility] Last Admin: 12/04/16 09:32 Dose: 100 mg Metoprolol Tartrate (Lopressor) 12.5 mg PO BID [facility] Last Admin: 12/04/16 18:21 Dose: 12.5 mg Morphine Sulfate (Morphine) 1 mg IVP Q3H PRN PRN Reason: Pain, severe (8-10) Nitroglycerin (Nitro-Bid 2% Oint) 1 ea TOP Q6H PRN PRN Reason: Pain, moderate (4-7) Last Admin: 12/04/16 01:43 Dose: 1 ea Pantoprazole Sodium (Protonix Ec Tab) 20 mg PO DAILY [facility] Last Admin: 12/04/16 09:33 Dose: 20 mg - Labs Labs: PT 11.2 Seconds (9.9-11.8) 12/03/16 16:00 INR 1.04 (0.93-1.08) 12/03/16 16:00 APTT 25.2 Seconds (23.7-30.8) 12/03/16 16:00
--- NOTE | 2016-12-05 00:07 | CP.PCM.PN ---
Subjective - Date & Time of Evaluation Date of Evaluation: 12/05/16 Time of Evaluation: 00:05 - Subjective Subjective: Nurse calls and tells that BP is 175/55, 72/min. 98.3*F ,83% 3l/min,fsbs 273 mg %.Patient has complaints of sob. Patient was examined at bedside. Complaints of sob . Has no other complaints. Denies chest pain, sweating , nausea, palpitations. 71 year old woman came to ER with chest pain. Has PMH of breast cancer, HTN, ID, atrial fibrillation, DM, asthma, depression , blindness in left eye, atrterisclerotic heart disease. Objective - Vital Signs/Intake and Output Vital Signs (last 24 hours): Temp Pulse Resp BP Pulse Ox 98.3 F 72 22 175/55 H 83 L 12/04/16 23:53 12/04/16 23:53 12/04/16 23:53 12/04/16 23:53 12/04/16 23:53 Intake and Output: 12/04/16 12/05/16 18:59 06:59 Intake Total 360 Output Total 400 Balance -40 - Medications Medications: Current Medications Acetaminophen (Tylenol 325mg Tab) 650 mg PO Q6H PRN PRN Reason: Fever >100.4 F Last Admin: 12/04/16 01:46 Dose: 650 mg Alprazolam (Xanax) 0.125 mg PO BID PRN; Protocol PRN Reason: Anxiety Stop: 12/10/16 20:18 Last Admin: 12/04/16 22:37 Dose: 0.125 mg Apixaban (Eliquis) 2.5 mg PO BID [facility] PRN Reason: Protocol Last Admin: 12/04/16 17:35 Dose: 2.5 mg Arformoterol Tartrate (Brovana) 15 mcg IH [id number] [facility] Last Admin: 12/04/16 19:56 Dose: 15 mcg Atorvastatin Calcium (Lipitor) 10 mg PO DIN [facility] Last Admin: 12/04/16 17:35 Dose: 10 mg Folic Acid (Folic Acid) 1 mg PO DAILY [facility] Last Admin: 12/04/16 09:32 Dose: 1 mg Glimepiride (Amaryl) 4 mg PO DAILY [facility] Last Admin: 12/04/16 09:31 Dose: 4 mg Meropenem 1g/NS 100mL IVPB (Meropenem 1g/Ns 100ml Ivpb) 1 gm in 100 mls @ 100 mls/hr IVPB Q12 [facility] PRN Reason: Protocol Stop: 12/11/16 10:16 Last Admin: 12/04/16 10:46 Dose: 100 mls/hr Insulin Detemir (Levemir) 30 unit SC HS [facility] Last Admin: 12/04/16 21:57 Dose: 30 unit Insulin Human Regular (Humulin R Med) 0 units SC ACHS [facility] PRN Reason: Protocol Last Admin: 12/04/16 21:56 Dose: Not Given Losartan Potassium (Cozaar) 100 mg PO DAILY [facility] Last Admin: 12/04/16 09:32 Dose: 100 mg Metoprolol Tartrate (Lopressor) 12.5 mg PO BID [facility] Last Admin: 12/04/16 18:21 Dose: 12.5 mg Morphine Sulfate (Morphine) 1 mg IVP Q3H PRN PRN Reason: Pain, severe (8-10) Nitroglycerin (Nitro-Bid 2% Oint) 1 ea TOP Q6H PRN PRN Reason: Pain, moderate (4-7) Last Admin: 12/04/16 01:43 Dose: 1 ea Pantoprazole Sodium (Protonix Ec Tab) 20 mg PO DAILY [facility] Last Admin: 12/04/16 09:33 Dose: 20 mg - Labs Labs: PT 11.2 Seconds (9.9-11.8) 12/03/16 16:00 INR 1.04 (0.93-1.08) 12/03/16 16:00 APTT 25.2 Seconds (23.7-30.8) 12/03/16 16:00 - Constitutional Appears: No Acute Distress - Head Exam Head Exam: ATRAUMATIC, NORMAL INSPECTION, NORMOCEPHALIC - Eye Exam Eye Exam: Normal appearance - ENT Exam ENT Exam: Normal External Ear Exam - Neck Exam Neck Exam: Normal Inspection - Respiratory Exam Respiratory Exam: Rales (absent), Wheezes (Bilaterally present.). absent: Accessory Muscle Use, Chest Wall Tenderness, Rhonchi, Respiratory Distress Additional comments: Has some wheezing audible from distance. - Cardiovascular Exam Cardiovascular Exam: Irregular Rhythm. absent: JVD - GI/Abdominal Exam GI & Abdominal Exam: Normal Bowel Sounds - Rectal Exam Rectal Exam: Deferred - Extremities Exam Extremities Exam: Normal Inspection - Back Exam Back Exam: NORMAL INSPECTION - Neurological Exam Neurological Exam: Alert, Oriented x3 - Psychiatric Exam Psychiatric exam: Normal Affect, Normal Mood - Skin Skin Exam: Normal Color Assessment and Plan - Assessment and Plan (Free Text) Assessment: Dyspnea. Hypoxia. Atrial fibrillation. Lung cancer. R/P PNA. CHF? HTN. History ID. Breast cancer. Depression. Plan: Duoneb nebulizer treatment. Solumedrol 125 mg IV stat. CXR stat.---------->CHF vs.PNA. ABG stat.-7.48/34/123/25.3 on 28%. EKG stat.----->NSR. Troponin stat.------>0.02. Lasix 20 mg IV stat. Continue present management. Will give 40 mg Lasix IV after reviewing CXR.
[2016-12-05] MEDS ORDERED: Albuterol-Ipratrop 3 mg / 0.5 (3 ml) UD IH STA (00:17)
[2016-12-05 00:49] LABS: ARTERIAL BLOOD GAS HCO3 25.3 mmol/L (21-28); ARTERIAL BLOOD GAS O2 CONTENT 13.9 ML/dl (15-23); ARTERIAL BLOOD GAS PH 7.48 (7.35-7.45); ARTERIAL BLOOD HGB O2 SAT 96.2 % (95.0-98.0); CARBOXYHEMOGLOBIN 2.3 % (0.5-1.5); HHB 0.8 % (0-5); METHEMOGLOBIN 0.7 % (0.0-3.0)
[2016-12-05 07:22] LABS: HEMATOCRIT 32.5 % (36.0-48.0); MEAN CELL VOLUME 84.2 fL (80.0-105.0); MEAN CORPUSCULAR HEMOGLOBIN 27.2 pg (25.0-35.0); MEAN CORPUSCULAR HGB CONC 32.3 g/dl (31.0-37.0); RED CELL DISTRIBUTION WIDTH 15.8 % (11.5-14.5); WHITE BLOOD COUNT 4.5 10^3/ul (4.5-11.0)
[2016-12-05 07:41] LABS: ALB/GLOB RATIO 1.2 (1.1-1.8); BILIRUBIN,TOTAL 0.7 mg/dL (0.2-1.3); CALCIUM 8.2 mg/dL (8.4-10.5); MAGNESIUM 1.8 mg/dL (1.7-2.2); PHOSPHOROUS 3.3 mg/dL (2.5-4.5); POTASSIUM 4.4 mmol/L (3.6-5.0); TOTAL PROTEIN 5.6 g/dL (5.8-8.3)
[2016-12-05] MEDS: Arformoterol 15 mcg/2 ml Inh Sol IH SCH ×2 (07:47→19:33)
[2016-12-05] MEDS: Insulin Reg-MEDIUM-Coverage SC SCH ×3 (08:01→17:00)
[2016-12-05] MEDS ORDERED: Albuterol-Ipratrop 3 mg / 0.5 (3 ml) UD IH PRN (09:18)
--- NOTE | 2016-12-05 09:20 | RAD ---
HISTORY: Shortness of breath COMPARISON: 12/03/2016 FINDINGS: The right IJV line terminates at the cavoatrial junction LUNGS: There is worsening pulmonary vascular congestion and mild interstitial pulmonary edema. No lobar pneumonia. PLEURA: No significant pleural effusion identified, no pneumothorax apparent. CARDIOVASCULAR: Persistent moderate cardiomegaly. OSSEOUS STRUCTURES: No significant abnormalities. VISUALIZED UPPER ABDOMEN: Normal. OTHER FINDINGS: None. IMPRESSION: Worsening pulmonary venous congestion and interstitial pulmonary edema.
[2016-12-05] MEDS ORDERED: Insulin Detemir 100 units/ml Vial (Levemir) SC SCH (09:22)
[2016-12-05] MEDS: Pantoprazole 20 mg EC Tab PO SCH (09:45)
[2016-12-05] MEDS: Meropenem 1g/NS 100mL IVPB 1 GM/100 ML PIGGYBACK IVPB SCH ×2 (09:52→22:32)
--- NOTE | 2016-12-05 10:04 | PN ---
DATE: 12/05/2016 REASON FOR CONSULTATION AND FOLLOWUP: Chest pain, cardiac catheterization, history of paroxysmal atr ial fibrillation. BRIEF CLINICAL HISTORY: This is a 71-year-old female with past medical history significant for hyper coagulable state, paroxysmal atrial fibrillation, status post cardiac catheterization, normal coronar ies, seen in Dr. Zabala's office, getting Neupogen. Later on after, the patient developed chest john n so came to the Emergency Room. History of breast CA. The patient used to have chest pain on cough ing. PHYSICAL EXAMINATION: VITAL SIGNS: Temperature afebrile, heart rate 72, blood pressure 175/55. HEENT: PERRLA. Extraocular muscles intact. NECK: Supple. No carotid bruits. No thyromegaly. CHEST: Clear to auscultation. HEART: S1, S2 regular. ABDOMEN: Soft. EXTREMITIES: Clubbing and cyanosis negative. BLOOD WORKUP: As follows: WBC 4.5, hemoglobin 10.5, hematocrit 32.5, platelet count 183. Chemistry shows sodium 134, potassium 4.4, chloride 100, carbon dioxide 20, anion gap of 10, BUN 18, creatinin e 1.1. EKG shows sinus roxi. Troponin remains flat. IMPRESSION: Neutropenia, on Neupogen; history of breast cancer, history of paroxysmal atrial fibrill ation, history of hypercoagulable state, history of deep venous thrombosis and pulmonary embolism, hi story of multiple catheterizations by Dr. Young and Dr. Ike Gutierrez as well as most recent catheteriz ation by me on 10/18/2015 revealed essentially nonobstructive coronary artery disease limited only to very distal left anterior descending diffusely diseased, non-flow limiting, preserved left ventricul ar ejection fraction 60-65%; possible acute bronchitis, nonischemic chest pain, no evidence of acute myocardial infarction, no evidence of unstable angina. RECOMMENDATION: Continue treatment for COPD. Continue albuterol. Continue losartan and low-dose of metoprolol because the patient ____ some bradycardia, paroxysmal atrial fibrillation. Discontinue t elemetry. Thank you, Dr. Quintero, for providing the opportunity in taking care of this patient. Emerald Roque MD cc: [id number] TT: 12/05/2016 10:04:24 Confirmation # [id number] Dictation # [id number] mn
--- NOTE | 2016-12-05 10:21 | CP.PCM.PN ---
Subjective - Date & Time of Evaluation Date of Evaluation: 12/05/16 Time of Evaluation: 09:10 - Subjective Subjective: Has been afebrile overnight, no more chest pain, no SOB, no abdominal pain, no dysuria, no diarrhea. Appetite is good. Objective - Vital Signs/Intake and Output Vital Signs (last 24 hours): Temp Pulse Resp BP Pulse Ox 98.6 F 44 L 22 151/80 H 93 L 12/05/16 06:00 12/05/16 06:00 12/05/16 06:00 12/05/16 06:00 12/05/16 06:00 Intake and Output: 12/05/16 12/05/16 06:59 18:59 Intake Total 120 Output Total 1550 Balance -1430 - Medications Medications: Current Medications Acetaminophen (Tylenol 325mg Tab) 650 mg PO Q6H PRN PRN Reason: Fever >100.4 F Last Admin: 12/04/16 01:46 Dose: 650 mg Alprazolam (Xanax) 0.125 mg PO BID PRN; Protocol PRN Reason: Anxiety Stop: 12/10/16 20:18 Last Admin: 12/04/16 22:37 Dose: 0.125 mg Apixaban (Eliquis) 2.5 mg PO BID [facility] PRN Reason: Protocol Last Admin: 12/04/16 17:35 Dose: 2.5 mg Arformoterol Tartrate (Brovana) 15 mcg IH [id number] [facility] Last Admin: 12/05/16 07:47 Dose: 15 mcg Atorvastatin Calcium (Lipitor) 10 mg PO DIN [facility] Last Admin: 12/04/16 17:35 Dose: 10 mg Folic Acid (Folic Acid) 1 mg PO DAILY [facility] Last Admin: 12/04/16 09:32 Dose: 1 mg Glimepiride (Amaryl) 4 mg PO DAILY [facility] Last Admin: 12/04/16 09:31 Dose: 4 mg Meropenem 1g/NS 100mL IVPB (Meropenem 1g/Ns 100ml Ivpb) 1 gm in 100 mls @ 100 mls/hr IVPB Q12 [facility] PRN Reason: Protocol Stop: 12/11/16 10:16 Last Admin: 12/04/16 10:46 Dose: 100 mls/hr Insulin Detemir (Levemir) 30 unit SC HS [facility] Last Admin: 12/04/16 21:57 Dose: 30 unit Insulin Human Regular (Humulin R Med) 0 units SC ACHS [facility] PRN Reason: Protocol Last Admin: 12/05/16 08:01 Dose: 7 units Losartan Potassium (Cozaar) 100 mg PO DAILY [facility] Last Admin: 12/04/16 09:32 Dose: 100 mg Metoprolol Tartrate (Lopressor) 12.5 mg PO BID [facility] Last Admin: 12/04/16 18:21 Dose: 12.5 mg Morphine Sulfate (Morphine) 1 mg IVP Q3H PRN PRN Reason: Pain, severe (8-10) Nitroglycerin (Nitro-Bid 2% Oint) 1 ea TOP Q6H PRN PRN Reason: Pain, moderate (4-7) Last Admin: 12/04/16 01:43 Dose: 1 ea Pantoprazole Sodium (Protonix Ec Tab) 20 mg PO DAILY [facility] Last Admin: 12/04/16 09:33 Dose: 20 mg - Labs Labs: 12/05/16 05:00 12/05/16 05:00 PT 11.2 Seconds (9.9-11.8) 12/03/16 16:00 INR 1.04 (0.93-1.08) 12/03/16 16:00 APTT 25.2 Seconds (23.7-30.8) 12/03/16 16:00 - Constitutional Appears: Non-toxic, No Acute Distress - Head Exam Head Exam: NORMAL INSPECTION - Neck Exam Neck Exam: absent: Lymphadenopathy, Meningismus - Respiratory Exam Respiratory Exam: Decreased Breath Sounds - Cardiovascular Exam Cardiovascular Exam: +S1, +S2 - GI/Abdominal Exam GI & Abdominal Exam: Soft. absent: Tenderness Assessment and Plan - Assessment and Plan (Free Text) Plan: Assessment systemic inflammatory response syndrome, consider secondary to chest pain, atypical, R/O sepsis so far no source has been identified breast cancer on chemotherapy, last session 2 weeks ago history of DVT and PE history of Urinary tract infection / pyelonephritis HTN DM COPD atrial fibrillation history of DVT hypercoagulopathy with homozygous MGHFR mutation CAD S/P hemorrhoidectomy Plan continue Merrem day 2; blood cx, urine cx are negative so far; CXR does not show pneumonia; PCT is normal at 0.18 - if cx continue to be negative by tomorrow and patient is afebrile will d/c antibiotics Will continue to follow clinically
--- NOTE | 2016-12-05 10:36 | PN ---
DATE: 12/05/2016 HISTORY: This patient is a 71-year-old female admitted for substernal chest pain yesterday. Subsequently, she developed a fever in the Emergency Room, the patient developed dyspnea this morning and treated with nebulizer and dose of Solu-Medrol. SUBJECTIVE: The patient is feeling much better at this point. The patient denies any chest pain, denies any shortness of breath, but continues with some dry cough. She has known history of asthma. PHYSICAL EXAMINATION: VITAL SIGNS: Stable. Her temperature this morning 98.6, pulse 55, blood pressure 151/80, respiratory rate 22, oxygen saturation 93% on 3 liters of nasal cannula. GENERAL: She is comfortable, sitting in the chair, alert, awake, oriented. HEENT: Head is normocephalic, atraumatic. Oral mucosa is moist. NECK: Supple. LUNGS: With decreased breath sounds, but no rales, wheezing or rhonchi. ABDOMEN: Soft, nontender, nondistended. EXTREMITIES: With no edema. DIAGNOSTIC STUDIES: Her CBC today with WBC 4.5, hemoglobin 10.5, hematocrit 32.5. Chemistry with normal electrolytes. Her renal function is stable with BUN 18 and creatinine 1.1. Her glucose is high, ranging between 216 and 331. Repeated EKG this morning showed normal sinus rhythm with no ST-T changes. Her chest x-ray this morning showed some worsening pulmonary venous congestion and interstitial pulmonary edema. ASSESSMENT: 1. Increased dyspnea with chest x-ray consistent with congestive heart failure possibly with exacerbation of asthma. 2. Fever of uncertain etiology, clinically improved. 3. Type 2 diabetes mellitus, uncontrolled. 4. History of chest pain, noncardiac etiology probably secondary to Neupogen dose. 5. Hypertension. PLAN OF TREATMENT: We will start Lasix. We will continue beta jef. The patient will also be started on budesonide and continue Brovana with DuoNeb as needed for shortness of breath. The patient will be maintained on her antibiotic which was started yesterday. We will follow up the blood cultures. I will increase dose of Levemir and add the morning dose for better sugar control. Rosmery Go MD cc: [id number] TT: 12/05/2016 10:36:11 Confirmation # [id number] Dictation # [id number] BRISEIDA
[2016-12-05 12:04] VITALS: RESP 20
[2016-12-05] MEDS ORDERED: Insulin Regular 1 UNITS/0.01 ML ML SC STA ×2 (13:59→21:51)
--- NOTE | 2016-12-05 17:48 | PN ---
DATE: 12/05/2016 The patient is in room 270, bed 1. 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 ____ by Dr. Lisa Youssef at [facility] about 2 months ago. Based on the Oncotype DX assay, patient was advised to get system ic chemotherapy. Since the patient also has significant cardiac issues and also has a hypercoag stat e, after a detailed discussion and doing a risk analysis we decided to give her CMF based chemotherap y. The patient had IV CMF chemotherapy on day 1 and then on day 8, which was given last week. The p earline was seen in the office this week. On Thursday, she was noted to be neutropenic. She was start ed on Neupogen. She also got IV fluids as she had some mucositis and generally was not taking enough fluids. The patient after hydration felt better, was advised to come the next day for Neupogen and on the day 2 ____ when she got Neupogen she started having chest discomfort and left arm and left flaca ulder pain and since the patient has significant cardiac history, we decided to have advise the patie nt to send her to the Emergency Room for at least observation initially if not further treatment to r ule out cardiac issues as the cause for the pain. The patient does have a history of coronary artery disease, status post cardiac catheterization, though she did not require stents. She had significan t nonobstructive coronary artery disease limited to the distal left anterior descending arteries. No n flow limiting and preserved left ventricular ejection fraction. Based on this, after coming to the ER patient has had serial cardiac enzymes and isoenzymes done and also had troponins done and they h ave all been unremarkable. The patient also has attained CT angio to rule out PE as well. In the ho spital, patient has been feeling gradually better. Her chest pain has dissipated. Cardiology has se en here and they feel that this is noncardiac in origin, most likely is related to Neupogen causing e xpansion of the bone marrow that could be the cause for the pain related to the Neupogen. The patien t early this morning had some degree of shortness of breath and it was unclear what the approach shou ld be but patient was treated with Lasix, will also receive Solu-Medrol for the possibility that her breathing could be related to worsening of an asthma than anything else. The patient is feeling bett er, but as a result of the Solu-Medrol, sugars have been running high. The patient received 125 mg o f Solu-Medrol early this morning. PHYSICAL EXAMINATION: GENERAL: The patient is awake, alert, and oriented. The patient is examined in the chair where she is sitting next to her . VITAL SIGNS: T-max is 98.4, heart rate is 72, blood pressure is 175/55. HEENT: Head is normocephalic, atraumatic. Conjunctivae pale. Sclera is anicteric. Pupils are equa lly reactive to light and accommodation. NECK: Supple. There is no adenopathy. No jugular venous distention noted. CHEST: Reveals the lungs to be clear to percussion and auscultation. HEART: Reveals S1 and S2 to be normal. No gallop or murmur is heard. ABDOMEN: Soft, nontender. Bowel sounds are present. EXTREMITIES: Reveals no cyanosis, clubbing or edema. LABORATORY DATA: Shows the white count is 4.5 with an ANC greater than 2.5. Hemoglobin is 10.5, hem atocrit 32.5, platelet count is 183,000. Chemistry reveals a sodium of 134, K of 4.4, chloride 100, CO2 of 20, anion gap of 10, BUN of 18, creatinine 1.1. Blood sugar this morning was in the 300 range . EKG shows sinus bradycardia. Troponin remains flat. ASSESSMENT NOTES AND PLAN: The patient had neutropenia related to chemotherapy, IV CMF for her breas t cancer on the right side. It has a high risk for recurrence, for which she was given chemotherapy. History of paroxysmal atrial fibrillation, history of hypercoag state, history of pulmonary embolis m, history of deep venous thrombosis, history of multiple catheterizations in the past. The patient has nonobstructive coronary artery disease. The patient is now having symptoms of what appears to be acute bronchitis superimposed on asthma for which the patient is taking medications at home and whic h have been revised during this admission. The patient's labs were reviewed, so were her medications. Medications reveal the following: The amandeep wright is currently on Amaryl 4 mg p.o. daily, Brovana 15 mcg inhaled q.12 hours. She is on Cozaar 10 0 mg daily, DuoNeb 3 mg/0.5 mg q.4 hours p.r.n. She is on Eliquis 2.5 mg b.i.d., folic acid 1 mg jo ly. She is on insulin coverage depending on the blood sugar levels, furosemide, she is getting 40 mg IV daily. She is on Levemir 40 at night and 15 in the morning and insulin coverage as well. She is on folic acid, Eliquis 2.5 b.i.d. She is on atorvastatin 10 mg p.o. daily, Lopressor 12.5 b.i.d., m eropenem 1 gram IV piggyback q.8 hours, morphine sulfate 1 mg IV q.3 hours p.r.n. which she has not t aken recently. ____ nitroglycerin ointment topically q.6 hours p.r.n., pantoprazole EC 20 mg p.o. da rafiq, budesonide Pulmicort Respules 0.5 mg inhaled q.12 hours, Tylenol p.r.n., Xanax ____ mg p.o. b.i. d. ASSESSMENT NOTES AND PLAN: The patient's condition is clinically getting better. The patient had 3 blood sugars done between 11 and now, time of her visit, and 3 blood sugar levels fingerstick have be en in the 500 range. Could be related to the intravenous Solu-Medrol the patient recently had. I to ld her not to worry, it will not change any of the treatments at this time. Hopefully, the blood sug ar should come down because it could be aftermath of the Solu-Medrol 125 given early this morning for her breathing issues. I told the patient I would speak to Dr. Quintero and give her input as to wha t the sugar levels could be from. It is very clear it could be from the Solu-Medrol given earlier th is a.m. Routine post exam instructions have been given to the patient. We will continue to monitor blood work and make appropriate recommendations. Alyssa Zabala MD cc: [id number] TT: 12/05/2016 17:47:37 Confirmation # [id number] Dictation # [id number]
--- NOTE | 2016-12-05 19:05 | CARD ---
APPROVED REPORT EKG Measurement Heart [id number] <Conclusion> Normal sinus rhythm Normal ECG
[2016-12-05] MEDS: Budesonide 0.5 mg/2 ml Inhal Susp UD IH SCH (19:33)
--- NOTE | 2016-12-05 21:53 | CP.PCM.PN ---
Subjective - Date & Time of Evaluation Date of Evaluation: 12/05/16 Time of Evaluation: 21:52 - Subjective Subjective: S:Patient was seen at bedside because of fsbs-463 mg %. She has no complaints. States that she has had no extra food consumed. She has received steroids. Medical record was received. O: Last Vital Signs 3 Temp 98.1 F 12/05/16 17:35 Pulse 63 12/05/16 17:35 Resp 20 12/05/16 17:35 BP 145/63 12/05/16 17:35 Pulse Ox 93 L 12/05/16 06:00 Awake , alert , not in distress. LUNGS:Normal breathing pattern. A:Hyperglycemia. P:Regular insulin 10 Untis SC STAT. Later on, repeat FSBS was 400 mg %. Another 10 units insulin was ordered to be given subcutaneously. Objective - Vital Signs/Intake and Output Vital Signs (last 24 hours): Temp Pulse Resp BP Pulse Ox 98.1 F 63 20 145/63 93 L 12/05/16 17:35 12/05/16 17:35 12/05/16 17:35 12/05/16 17:35 12/05/16 06:00 Intake and Output: 12/05/16 12/06/16 18:59 06:59 Intake Total 720 Balance 720 - Medications Medications: Current Medications Acetaminophen (Tylenol 325mg Tab) 650 mg PO Q6H PRN PRN Reason: Fever >100.4 F Last Admin: 12/04/16 01:46 Dose: 650 mg Albuterol/Ipratropium (Duoneb 3 Mg/0.5 Mg (3 Ml) Ud) 3 ml IH [id number] PRN PRN Reason: Shortness of Breath Alprazolam (Xanax) 0.125 mg PO BID PRN; Protocol PRN Reason: Anxiety Stop: 12/10/16 20:18 Last Admin: 12/04/16 22:37 Dose: 0.125 mg Apixaban (Eliquis) 2.5 mg PO BID [facility] PRN Reason: Protocol Last Admin: 12/05/16 17:01 Dose: 2.5 mg Arformoterol Tartrate (Brovana) 15 mcg IH [id number] Last Admin: 12/05/16 19:33 Dose: 15 mcg Atorvastatin Calcium (Lipitor) 10 mg PO DIN [facility] Last Admin: 12/05/16 17:01 Dose: 10 mg Budesonide (Pulmicort Respules) 0.5 mg IH [id number] [facility] Last Admin: 12/05/16 19:33 Dose: 0.5 mg Folic Acid (Folic Acid) 1 mg PO DAILY [facility] Last Admin: 12/05/16 09:45 Dose: 1 mg Furosemide (Lasix) 40 mg IVP DAILY [facility] Last Admin: 12/05/16 10:01 Dose: Not Given Glimepiride (Amaryl) 4 mg PO DAILY [facility] Last Admin: 12/05/16 09:45 Dose: 4 mg Meropenem 1g/NS 100mL IVPB (Meropenem 1g/Ns 100ml Ivpb) 1 gm in 100 mls @ 100 mls/hr IVPB Q12 [facility] PRN Reason: Protocol Stop: 12/11/16 10:16 Last Admin: 12/05/16 09:52 Dose: 100 mls/hr Insulin Detemir (Levemir) 40 unit SC HS [facility] Insulin Detemir (Levemir) 15 unit SC ACB [facility] Insulin Human Regular (Humulin R Med) 0 units SC ACHS [facility] PRN Reason: Protocol Last Admin: 12/05/16 17:00 Dose: 10 units Losartan Potassium (Cozaar) 100 mg PO DAILY [facility] Last Admin: 12/05/16 09:45 Dose: 100 mg Metoprolol Tartrate (Lopressor) 12.5 mg PO BID [facility] Last Admin: 12/05/16 17:01 Dose: 12.5 mg Morphine Sulfate (Morphine) 1 mg IVP Q3H PRN PRN Reason: Pain, severe (8-10) Nitroglycerin (Nitro-Bid 2% Oint) 1 ea TOP Q6H PRN PRN Reason: Pain, moderate (4-7) Last Admin: 12/04/16 01:43 Dose: 1 ea Pantoprazole Sodium (Protonix Ec Tab) 20 mg PO DAILY [facility] Last Admin: 12/05/16 09:45 Dose: 20 mg - Labs Labs: 12/05/16 05:00 12/05/16 18:33 PT 11.2 Seconds (9.9-11.8) 12/03/16 16:00 INR 1.04 (0.93-1.08) 12/03/16 16:00 APTT 25.2 Seconds (23.7-30.8) 12/03/16 16:00
[2016-12-06] MEDS ORDERED: Insulin Regular 1 UNITS/0.01 ML ML SC STA (03:26)
[2016-12-06 06:28] LABS: HEMATOCRIT 28.8 % (36.0-48.0); MEAN CELL VOLUME 82.1 fL (80.0-105.0); MEAN CORPUSCULAR HEMOGLOBIN 27.6 pg (25.0-35.0); MEAN CORPUSCULAR HGB CONC 33.7 g/dl (31.0-37.0); MEAN PLATELET VOLUME 9.9 fl (7.0-11.0); RED CELL DISTRIBUTION WIDTH 15.8 % (11.5-14.5); WHITE BLOOD COUNT 4.7 10^3/ul (4.5-11.0)
[2016-12-06 06:38] LABS: ALB/GLOB RATIO 1.1 (1.1-1.8); BILIRUBIN,TOTAL 0.6 mg/dL (0.2-1.3); CALCIUM 8.7 mg/dL (8.4-10.5); POTASSIUM 3.8 mmol/L (3.6-5.0); TOTAL PROTEIN 5.5 g/dL (5.8-8.3)
[2016-12-06] MEDS ORDERED: Insulin Detemir 100 units/ml Vial (Levemir) SC SCH (07:30)
[2016-12-06] MEDS: Budesonide 0.5 mg/2 ml Inhal Susp UD IH SCH (07:37)
[2016-12-06] MEDS: Arformoterol 15 mcg/2 ml Inh Sol IH SCH (07:37)
[2016-12-06] MEDS: Insulin Reg-MEDIUM-Coverage SC SCH ×2 (09:41→12:08)
[2016-12-06] MEDS: Meropenem 1g/NS 100mL IVPB 1 GM/100 ML PIGGYBACK IVPB SCH (09:48)
[2016-12-06] MEDS: Pantoprazole 20 mg EC Tab PO SCH (09:51)
--- NOTE | 2016-12-06 12:00 | CP.PCM.PN ---
Subjective - Date & Time of Evaluation Date of Evaluation: 12/06/16 Time of Evaluation: 11:40 - Subjective Subjective: Patient is breathing better, eating well, no fevers overnight, no chest pain currently. Objective - Vital Signs/Intake and Output Vital Signs (last 24 hours): Temp Pulse Resp BP Pulse Ox 97.7 F 100 H 20 157/89 H 97 12/06/16 08:02 12/06/16 09:51 12/06/16 08:02 12/06/16 09:51 12/06/16 08:02 Intake and Output: 12/06/16 12/06/16 06:59 18:59 Intake Total 960 Balance 960 - Medications Medications: Current Medications Acetaminophen (Tylenol 325mg Tab) 650 mg PO Q6H PRN PRN Reason: Fever >100.4 F Last Admin: 12/04/16 01:46 Dose: 650 mg Albuterol/Ipratropium (Duoneb 3 Mg/0.5 Mg (3 Ml) Ud) 3 ml IH [id number] PRN PRN Reason: Shortness of Breath Alprazolam (Xanax) 0.125 mg PO BID PRN; Protocol PRN Reason: Anxiety Stop: 12/10/16 20:18 Last Admin: 12/06/16 05:23 Dose: 0.125 mg Apixaban (Eliquis) 2.5 mg PO BID [facility] PRN Reason: Protocol Last Admin: 12/06/16 09:51 Dose: 2.5 mg Arformoterol Tartrate (Brovana) 15 mcg IH [id number] [facility] Last Admin: 12/06/16 07:37 Dose: 15 mcg Atorvastatin Calcium (Lipitor) 10 mg PO DIN [facility] Last Admin: 12/05/16 17:01 Dose: 10 mg Budesonide (Pulmicort Respules) 0.5 mg IH [id number] [facility] Last Admin: 12/06/16 07:37 Dose: 0.5 mg Folic Acid (Folic Acid) 1 mg PO DAILY [facility] Last Admin: 12/06/16 09:51 Dose: 1 mg Furosemide (Lasix) 40 mg IVP DAILY [facility] Last Admin: 12/06/16 09:49 Dose: 40 mg Glimepiride (Amaryl) 4 mg PO DAILY [facility] Last Admin: 12/06/16 09:50 Dose: 4 mg Insulin Detemir (Levemir) 40 unit SC HS [facility] Last Admin: 12/05/16 22:32 Dose: 40 unit Insulin Detemir (Levemir) 15 unit SC ACB [facility] Last Admin: 12/06/16 09:48 Dose: Not Given Insulin Human Regular (Humulin R Med) 0 units SC ACHS [facility] PRN Reason: Protocol Last Admin: 12/06/16 09:41 Dose: Not Given Losartan Potassium (Cozaar) 100 mg PO DAILY [facility] Last Admin: 12/06/16 09:50 Dose: 100 mg Metoprolol Tartrate (Lopressor) 12.5 mg PO BID [facility] Last Admin: 12/06/16 09:51 Dose: 12.5 mg Morphine Sulfate (Morphine) 1 mg IVP Q3H PRN PRN Reason: Pain, severe (8-10) Nitroglycerin (Nitro-Bid 2% Oint) 1 ea TOP Q6H PRN PRN Reason: Pain, moderate (4-7) Last Admin: 12/04/16 01:43 Dose: 1 ea Pantoprazole Sodium (Protonix Ec Tab) 20 mg PO DAILY [facility] Last Admin: 12/06/16 09:51 Dose: 20 mg - Labs Labs: 12/06/16 06:00 12/06/16 06:00 PT 11.2 Seconds (9.9-11.8) 12/03/16 16:00 INR 1.04 (0.93-1.08) 12/03/16 16:00 APTT 25.2 Seconds (23.7-30.8) 12/03/16 16:00 - Constitutional Appears: Non-toxic, No Acute Distress - Head Exam Head Exam: NORMAL INSPECTION - ENT Exam ENT Exam: Mucous Membranes Moist - Neck Exam Neck Exam: absent: Lymphadenopathy, Meningismus - Respiratory Exam Respiratory Exam: Decreased Breath Sounds, Rales (bilateral) - Cardiovascular Exam Cardiovascular Exam: +S1, +S2 - GI/Abdominal Exam GI & Abdominal Exam: Soft. absent: Tenderness Assessment and Plan - Assessment and Plan (Free Text) Plan: Assessment systemic inflammatory response syndrome, consider secondary to chest pain, atypical, with no source of sepsis identified consider acute congestive heart failure breast cancer on chemotherapy, last session 2 weeks ago history of DVT and PE history of Urinary tract infection / pyelonephritis HTN DM COPD atrial fibrillation history of DVT hypercoagulopathy with homozygous MGHFR mutation CAD S/P hemorrhoidectomy Plan blood cx, urine cx are negative; CXR does not show pneumonia but does show vascular congestion; PCT is normal at 0.18 - will d/c antibiotics and observe Will continue to follow clinically
[2016-12-06 15:55] VITALS: BP 159/52; PULSE 51; TEMP 97.8; O2SAT 96
--- NOTE | 2016-12-06 18:08 | PN ---
DATE: 12/06/2016 SUBJECTIVE: The patient was admitted for chest pain induced by a dose of Neupogen the day earlier for her leukopenia. The patient developed fever the day after admission and increase of cough and shortness of breath. The patient was treated for exacerbation of asthma and possibility of an infection, but patient's cultures were all negative and infectious disease specialist's opinion was that she had systemic inflammatory response syndrome, possibly secondary to the Neupogen dose, unlikely infection due to all negative cultures. The patient is feeling well today. She has still some chest tightness and dry cough, but denies any chest pain or palpitation. PHYSICAL EXAMINATION ON DISCHARGE: VITAL SIGNS: She is afebrile. Temperature 97.7, her pulse is 54 and regular, blood pressure 157/89, and respiratory rate is 20. Her oxygen saturation is 97 % on room air. GENERAL: The patient is comfortable, alert, awake, oriented. HEENT: Head is normocephalic, atraumatic. Oral mucosa is moist. NECK: Supple. LUNGS: Clear to auscultation. HEART: Regular rhythm and rate. ABDOMEN: Soft, nontender, nondistended. EXTREMITIES: With no edema. LABORATORY DATA: CBC this morning was significant for normal WBC 4.7, hemoglobin 9.7, hematocrit 28.8, platelet count 187. Her chemistry was normal. Her glucose improved significantly since yesterday after increased dose of Levemir. ASSESSMENT: 1. Systemic inflammatory response syndrome, possibly due to Neupogen injection with subsequent episode of chest pain. The patient with negative cultures, blood cultures, and chest x-ray and afebrile. 2. History of chest pain induced by Neupogen, acute coronary syndrome was ruled out. 3. Type 2 diabetes mellitus. 4. Hypertension. 5. Right breast cancer. PLAN OF TREATMENT: The patient will be discharged home today in stable condition. Continue cardiac healthy diet with 1800 calorie ADA diet. The patient will be maintained on her chronic medications Lantus 40 units at night with NovoLog 15 units with meals, Brovana twice a day, rosuvastatin 5 mg daily, Toprol-XR 12.5 mg daily, glimepiride 4 mg twice a day , Eliquis 2.5 mg twice a day. I added Levaquin 500 mg daily for 3 days and Lasix 20 mg daily for 7 days. The patient was advised to follow up with primary care doctor next week and with oncologist as well as early childhood teacher assistant for asthma treatment. Rosmery Go MD cc: [id number] TT: 12/06/2016 18:08:09 Confirmation # [id number] Dictation # [id number] jn BRISEIDA
--- NOTE | 2016-12-06 18:24 | PN ---
DATE: 12/06/2016 Room 572, bed #2. REASON FOR CONSULTATION AND FOLLOWUP: Chest pain, cardiac catheterization, history of paroxysmal atr ial fibrillation. HISTORY OF PRESENT ILLNESS: A 71-year-old female with past medical history significant for hypercoag ulable state, paroxysmal atrial fibrillation, status post cardiac catheterization, normal coronaries, was seen in Dr. Zabala's office getting [facility]. Later on, the patient developed chest pain, so c dionne to Emergency Room. History of breast cancer. The patient also complains of some chest pain on c oughing. The patient is now feeling better. Denies shortness of breath or palpitation. PHYSICAL EXAMINATION: VITAL SIGNS: Blood pressure 159/52, respirations 20, pulse 51, temperature 97.8. HEAD: Normocephalic. EYES: Pupils normal. Conjunctivae slightly pale. NECK: JVP low. Carotid equal. THORAX: AP diameter normal. LUNGS: No rales. CARDIOVASCULAR: S1, S2. ABDOMEN: Soft, nontender, no organomegaly. Bowel sounds normal. EXTREMITIES: No clubbing, no cyanosis. LABORATORY DATA: WBC 4.7, hemoglobin 9.7, hematocrit 28.8, platelets 187. Sodium 138, potassium 3.8 , BUN 30, creatinine 1.2, random sugar 228. AST, ALT normal. Total protein 5.5, albumin 2.9. DIAGNOSES: Chest pain. The patient had multiple caths done by Dr. Ike Gutierrez and also done by Dr. Young and [address] Roque on 10/18/2015[address] They all showed nonobstructive coronary artery diseas e limited only to very distal left anterior descending coronary artery, which is distally diffusely d iseased and it was non-flow limiting, preserved left ventricular function with ejection fraction 60%- 65%. Probably patient now has acute bronchitis. She gets chest pain on coughing, it is probably ple uritic musculoskeletal pain. No evidence of coronary artery disease or ischemia or myocardial infarc tion at this moment. We will continue present therapy and we will follow with you. The patient is getting furosemide 20 p .o. daily, insulin as ordered, Eliquis 2.5 b.i.d., DuoNeb hand nebulizer therapy, insulin as ordered, Lipitor 10 mg daily, metoprolol 12.5 b.i.d. Emerald Beverly MD cc: [id number] TT: 12/06/2016 18:23:07 Confirmation # [id number] Dictation # [id number] jn
--- NOTE | 2016-12-08 07:27 | PN ---
DATE: 12/06/2016 The patient is in room 572. The patient is being discharged today. Subjectively, the patient is feeling better. Blood sugars ar e improved. Coughing and wheezing are also improved. The left-sided chest pain has abated. The pat triny was initially admitted for chest pain induced by Neupogen earlier because of the treatment for h er leukopenia secondary to chemotherapy. The patient has a diagnosis of carcinoma of the breast, hig h risk with lymph node involvement on the right side, status post lumpectomy. Was started on IV CMF at day 1 chemotherapy and after day 8 because of the leukopenia was started on Neupogen and ___ __ in the hospital. The patient was treated conservatively. Cardiac workup was negative. The next day the patient developed a fever with increasing cough and shortness of breath. She was tr eated for exacerbation of asthma and possible pneumonia. Blood cultures have been negative. Infecti ous disease felt that this was inflammatory response syndrome rather than infection and all cultures have been negative and the patient has been feeling better. Her sugars have come down from the high 500s, probably related to the Solu-Medrol she had earlier yesterday. PHYSICAL EXAMINATION: VITAL SIGNS: Stable. T-max is 98.4, pulse of 54 and regular, blood pressure 157/89, respirations 20 , O2 sat is 97% on room air. GENERAL: The patient comfortable, in no acute distress. HEENT: Head is normocephalic, atraumatic. Conjunctivae pale. Sclerae are anicteric. Pupils are eq ually reactive to light and accommodation. Examination of the oropharynx reveals no oropharyngeal le sions. NECK: Supple. There is no adenopathy. No jugular venous distention noted. LUNGS: Clear to percussion and auscultation. BREASTS: of the chest reveals the breasts to be unremarkable. The patient is status post lump ectomy in the right side. No lesions are felt. The patient still complains of periareolar itching a nd tenderness on the right side at the site of her lumpectomy. Axillae are negative. HEART: Reveals S1 and S2 to be normal. No gallop or murmur is heard. LUNGS: Clear to percussion and auscultation. ABDOMEN: Soft, nontender. Bowel sounds are present. EXTREMITIES: Reveals no edema. LABORATORY DATA: From today reveals a white count of 4.7, hemoglobin 9.7, hematocrit 28, platelet co unt 187,000. Chemistries are unremarkable. ASSESSMENT NOTES AND PLAN: Systemic inflammatory syndrome, stage II carcinoma of the breast, status post first cycle of IV CMF chemotherapy, ER/MS positive, HER-2/rachael negative, history of asthma, hist ory of type 2 diabetes, hypertension, hypercoagulable state on Eliquis. The patient is going to be d ischarged today on her current medications including changing her asthma medicines as per the primary doctor and the plate washer. The patient is going to see her own plate washer, Dr. Jorge Alberto forde, in [place] after discharge. She is going to come and see us as an outpatient as well. The amandeep wright is not due for another cycle of chemotherapy at least for the next 2 weeks. Will followup in t he office next week. Routine post exam instructions have been given to the patient. Alyssa Zabala MD cc: [id number] TT: 12/06/2016 21:43:39 Confirmation # [id number] Dictation # [id number] dn 12/08/2016 06:21:39
== END 2016-12-06 17:35 | disposition home or self-care (01) | DRG 313 ==
LOC: ED 15:27 → ERH 18:32 → 2RSO 22:26 → OBSVTOIN 12-04 09:48 → 5RSO 12-05 20:48
PROVIDERS: ADMIT Family Medicine; ATTEND Family Medicine
DX: R07.89 Other chest pain (principal); I25.2 Old myocardial infarction; D68.59 Other primary thrombophilia; I11.0 Hypertensive heart disease with heart failure; R65.10 Systemic inflammatory response syndrome (SIRS) of non-infectious origin without acute organ dysfunction; D70.1 Agranulocytosis secondary to cancer chemotherapy; C34.90 Malignant neoplasm of unspecified part of unspecified bronchus or lung; I50.9 Heart failure, unspecified; E11.65 Type 2 diabetes mellitus with hyperglycemia; J45.901 Unspecified asthma with (acute) exacerbation; H33.20 Serous retinal detachment, unspecified eye; J44.9 Chronic obstructive pulmonary disease, unspecified; C50.911 Malignant neoplasm of unspecified site of right female breast; I48.0 Paroxysmal atrial fibrillation; E78.5 Hyperlipidemia, unspecified; F32.89 Other specified depressive episodes; H54.42 Blindness, left eye, normal vision right eye; I25.10 Atherosclerotic heart disease of native coronary artery without angina pectoris; I35.8 Other nonrheumatic aortic valve disorders; J20.9 Acute bronchitis, unspecified; K12.30 Oral mucositis (ulcerative), unspecified; K21.9 Gastro-esophageal reflux disease without esophagitis; R09.02 Hypoxemia; T45.1X5A Adverse effect of antineoplastic and immunosuppressive drugs, initial encounter; Z79.01 Long term (current) use of anticoagulants; Z79.84 Long term (current) use of oral hypoglycemic drugs; Z79.899 Other long term (current) drug therapy; Z82.49 Family history of ischemic heart disease and other diseases of the circulatory system; Z83.3 Family history of diabetes mellitus; Z86.711 Personal history of pulmonary embolism; Z86.718 Personal history of other venous thrombosis and embolism; Z87.440 Personal history of urinary (tract) infections; M19.90 Unspecified osteoarthritis, unspecified site; I49.5 Sick sinus syndrome; Z87.19 Personal history of other diseases of the digestive system; I07.1 Rheumatic tricuspid insufficiency; F41.9 Anxiety disorder, unspecified; Z88.8 Allergy status to other drugs, medicaments and biological substances; Z91.013 Allergy to seafood; T45.8X5A Adverse effect of other primarily systemic and hematological agents, initial encounter; T38.0X5A Adverse effect of glucocorticoids and synthetic analogues, initial encounter; Z17.0 Estrogen receptor positive status [ER+]

== ENCOUNTER 2017-03-25 09:14 | Day surgery (SDC) | payer MEDICARE, BC ==
[2016-12-03 15:56] VITALS: PULSE 68
[2017-03-24 11:17] VITALS: BMI 34.9
[2017-03-25 10:01] LABS: BASO # 0.02 K/mm3 (0.0-2.0); BASO % 0.5 % (0.0-3.0); EOS # 0.2 (0.0-0.7); EOS % 6.1 % (1.5-5.0); GRAN # 2.54 (1.4-6.5); GRAN % 64.1 % (50.0-68.0); HEMATOCRIT 36.6 % (36.0-48.0); LYMPH # 0.7 (1.2-3.4); LYMPH % 18.7 % (22.0-35.0); MEAN CELL VOLUME 81.3 fl (80.0-105.0); MEAN CORPUSCULAR HEMOGLOBIN 25.6 pg (25.0-35.0); MEAN CORPUSCULAR HGB CONC 31.4 g/dl (31.0-37.0); MEAN PLATELET VOLUME 10.5 fl (7.0-11.0); MONO # 0.4 (0.1-0.6); MONO % 10.6 % (1.0-6.0); RED CELL DISTRIBUTION WIDTH 16.8 % (11.5-14.5)
[2017-03-25 10:09] LABS: CALCIUM 9.4 mg/dL (8.4-10.5); POTASSIUM 4.4 mmol/L (3.6-5.0)
[2017-03-25 10:12] LABS: INR 1.06 (0.93-1.08); PARTIAL THROMBOPLASTIN TIME 25.6 Seconds (23.7-30.8)
[2017-03-25] MEDS ORDERED: Lidocaine 2% Inj (20ml) ONE (10:21)
[2017-03-25] MEDS ORDERED: Midazolam 2 MG/2 ML VIAL ONE ×2 (10:22→11:08)
[2017-03-25] MEDS ORDERED: DiphenhydrAMINE 50 mg/ml Inj ONE (10:34)
[2017-03-25] MEDS ORDERED: Oxycodone/Acetaminophen 5/325 mg Tab PO PRN (11:31)
[2017-03-25] MEDS ORDERED: Sodium Chloride 0.45% 1,000 ML IV SCH (11:45)
[2017-03-25 11:57] VITALS: TEMP 97.7
[2017-03-25 12:08] VITALS: PULSE 55
[2017-03-25 12:20] VITALS: RESP 14; O2SAT 98
[2017-03-25 13:10] VITALS: BP 194/67
--- NOTE | 2017-03-25 17:55 | VASCULAR ---
PROCEDURE: Removal of tunneled right internal jugular venous access port. CLINICAL HISTORY: Breast carcinoma. Completed chemotherapy. Remove right IJ port. PHYSICIAN(S): Satish Geronimo M.D. TECHNIQUE: The relative risks and indications of the procedure were explained to the patient and consent obtained. The patient was placed supine on the arteriogram table and the right neck and chest prepped and draped usual sterile fashion. Conscious sedation and monitoring were provided throughout the procedure by a nurse. Antibiotics were given prior to the procedure. 1% Xylocaine was used to anesthetize the skin and soft tissues at the port. A 4 cm incision was made. The port was bluntly dissected and removed. The catheter was removed under fluoroscopic guidance. No retained catheter fragments were seen. The pocket was lavaged with normal saline. The pocket was closed in 2 layers. The patient tolerated the procedure well. IMPRESSION: 1. Removal of tunneled right internal jugular venous access port.
== END 2017-03-25 12:15 | disposition home or self-care (01) ==
LOC: SDSVAS 09:14
PROVIDERS: ATTEND Radiology Vascular & Interventional Radiology
DX: Z45.2 Encounter for adjustment and management of vascular access device (principal); Z85.3 Personal history of malignant neoplasm of breast; Z92.21 Personal history of antineoplastic chemotherapy
CPT/HCPCS: 36415; 36590; 80048; 85025; 85610; 85730; 99152; J1200; J1644; J2250; J2405; J3010; J7030

== ENCOUNTER 2017-09-08 07:21 | Day surgery (SDC) | payer MEDICARE, BC ==
[2016-12-03 15:56] VITALS: PULSE 68
[2017-09-04 08:19] VITALS: BMI 32.9
[2017-09-08] MEDS ORDERED: Propofol 10 mg/ml Inj (20 ML) ONE (09:15)
[2017-09-08 16:49] VITALS: BP 145/52; PULSE 51; RESP 16; TEMP 97.8; O2SAT 95
== END 2017-09-08 11:24 | disposition home or self-care (01) ==
LOC: ENDO 07:21
PROVIDERS: ATTEND Internal Medicine Gastroenterology
DX: K29.50 Unspecified chronic gastritis without bleeding (principal); K31.84 Gastroparesis; R10.13 Epigastric pain; E11.9 Type 2 diabetes mellitus without complications; Z79.4 Long term (current) use of insulin
CPT/HCPCS: 43235; 82948; J2001; J2704; J7040

== ENCOUNTER 2017-09-29 16:55 | Inpatient (IN) | payer MEDICARE, BC ==
[2017-09-29 16:57] VITALS: PULSE 68
[2017-09-29 17:09] VITALS: BMI 33.3
--- NOTE | 2017-09-29 17:20 | ED PDOC ---
Arrival/HPI - General Chief Complaint: Abdominal Pain Time Seen by Provider: 09/29/17 17:16 Historian: Patient - History of Present Illness Narrative History of Present Illness (Text): 09/29/17 17:20 72 year old female, whose PMH includes diabetes, breast CA, and has had recent cardiac catheterization, who presents to the emergency department as recommended by her PCP Dr. Zabala, for acute on chronic complaints of RUQ due to gallstones. Patient reports seeing Dr. Nicloe GI, in the recent past and due to patient's persistent and worsening discomfort, he recommends cholecystectomy. Patient states that over the past week the RUQ pain has become worse associated with nausea, loose bowel movement, and no appetite. Additionally, she complaints of having occasional chest discomfort with palpitations. Patient denies fever, chills, vomiting, dysuria, shortness of breath, or other complaints. Patient arrived to emergency department for further management. pt denied sob/urinary changes pt denied fall/trauma/travel, sick contact pt is here for further eval pt's without other complaints PCP: Dr Zabala Time/Duration: 1 week Symptom Onset: Gradual Symptom Course: Worsening Quality: Stabbing, Cramping Severity Level: 9, Severe Activities at Onset: Rest Context: Home Past Medical History - Provider Review Nursing Documentation Reviewed: Yes - Travel History Have you recently traveled outside [place] w/in the past 3 mons?: No - Past History Past History: No Previous - Infectious Disease Hx of Infectious Diseases: None - Tetanus Immunization Tetanus Immunization: Unknown - Reproductive Menopause: Yes Currently : No - Cardiac Hx Pacemaker: No - Pulmonary Hx Respiratory Disorders: Yes Hx Asthma: Yes - Neurological Hx Paralysis: No - HEENT Hx HEENT Disorder: No - Renal Hx Renal Disorder: No - Endocrine/Metabolic Hx Diabetes Mellitus Type 1: Yes - Hematological/Oncological Hx Blood Transfusions: No Hx Blood Transfusion Reaction: No - Integumentary Hx Dermatological Disorder: No - Musculoskeletal/Rheumatological Hx Musculoskeletal Disorders: Yes - Gastrointestinal Hx Gastrointestinal Disorders: No - Genitourinary/Gynecological Hx Genitourinary Disorders: Yes Other/Comment: breast ca - Psychiatric Hx Emotional Abuse: No Hx Physical Abuse: No Hx Substance Use: No - Surgical History Hx Cardiac Catheterization: Yes Other/Comment: L knee - Anesthesia Hx Anesthesia Reactions: Yes (HEART RATE DROPPED) Hx Malignant Hyperthermia: No - Suicidal Assessment Feels Threatened In Home Enviroment: No Family/Social History - Physician Review Nursing Documentation Reviewed: Yes Family/Social History: No Known Family HX Smoking Status: Never Smoked Hx Alcohol Use: No Hx Substance Use: No Hx Substance Use Treatment: No Allergies/Home Meds Allergies/Adverse Reactions: Allergies iodine Allergy (Intermediate, Verified 09/29/17 17:04) HIVES, ITCHING shellfish derived Allergy (Intermediate, Verified 09/29/17 17:04) HIVES, ITCHING Home Medications: Home Meds Medication Instructions Recorded Confirmed Linaclotide [Linzess] 145 mg PO QPM 12/25/14 09/29/17 Glimepiride [amaRYL] 4 mg PO BID 07/30/15 09/29/17 Pantoprazole [Protonix EC Tab] 40 mg PO QAM 07/30/15 09/29/17 Insulin Glargine, Recombina 30 - 40 unit SC HS PRN 09/14/15 09/29/17 [Lantus] Insulin Lispro [humALOG] 8 - 20 units SC AC PRN 09/14/15 09/29/17 Apixaban [Eliquis] 2.5 mg PO BID 11/12/16 09/29/17 Empagliflozin [Jardiance] 10 mg PO DAILY 11/12/16 09/29/17 Metoprolol Succinate [Toprol XL] 12.5 mg PO QAM 11/12/16 09/29/17 Losartan [Cozaar] 50 mg PO DAILY 12/03/16 09/29/17 Rosuvastatin Calcium [Crestor] 5 mg PO QPM 12/03/16 09/29/17 ALPRAZolam [Xanax] 0.25 mg PO HS PRN 09/04/17 09/29/17 Anastrozole [Arimidex 1 mg Tab] 1 mg PO DAILY 09/04/17 09/29/17 Budesonide [Pulmicort Respules] 1 puff INH PRN PRN 09/04/17 09/29/17 Arformoterol [Brovana] 0 fernando IH PRN PRN 09/29/17 09/29/17 Budesonide [Pulmicort Respules] 0 mg IH PRN PRN 09/29/17 09/29/17 Ergocalciferol (Vitamin D2) 50,000 unit PO QWK 09/29/17 09/29/17 [Vitamin D2] Ursodiol [Actigall] 300 mg PO DAILY 09/29/17 09/29/17 Review of Systems - Review of Systems Constitutional: absent: Fevers Eyes: Normal ENT: absent: Sore Throat Respiratory: absent: SOB Cardiovascular: Chest Pain (chest discomfort), Palpitations Gastrointestinal: Abdominal Pain (RUQ), Stool Changes (loose stool ), Nausea, Appetite Changes (no appetite). absent: Diarrhea Genitourinary Female: absent: Dysuria Musculoskeletal: absent: Back Pain Skin: absent: Rash Neurological: absent: Headache, Dizziness Endocrine: absent: Diaphoresis Hemo/Lymphatic: Normal Psychiatric: Normal Physical Exam Vital Signs Reviewed: Yes Vital Signs Temp Pulse Resp BP Pulse Ox 09/29/17 17:04 98.4 F 59 L 18 152/55 H 100 Temperature: Afebrile Blood Pressure: Hypertensive (systolic elevated BP) Pulse: Bradycardic Respiratory Rate: Normal Appearance: Positive for: Well-Appearing, Non-Toxic, Uncomfortable, Other ( resting in bed, alert/awake, GCS = 15, oriented x 3, cooperative, mild distress due to pain, follows command with ease) Pain Distress: Mild Mental Status: Positive for: Alert and Oriented X 3 - Systems Exam Head: Present: Atraumatic, Normocephalic Pupils: Present: PERRL, Other (no nystagmus, no photophobia, sclera anicteric, visual field intact b/l) Extroacular Muscles: Present: EOMI Conjunctiva: Present: Normal Ears: Present: Normal Mouth: Present: Moist Mucous Membranes, Normal Teeth, Other (no drooling/stridor , uvuvla/tongue are midline, no exudate/lesions, no dysphonia) Pharnyx: Present: Normal Nose (External): Present: Atraumatic Nose (Internal): Present: Normal Inspection Neck: Present: Normal Range of Motion, Trachea Midline, Other (intact ROM, no step off). No: Meningeal Signs, MIDLINE TENDERNESS Respiratory/Chest: Present: Clear to Auscultation, Good Air Exchange, Other ( CTA b/l, no w/r/r, no tachypenia). No: Accessory Muscle Use Cardiovascular: Present: Regular Rate and Rhythm, Normal S1, S2. No: Murmurs Abdomen: Present: Normal Bowel Sounds, Other (+ guzman's sign, mild midline tenderness, well nourished/obese female, no masses/rebound/guarding/rigidity) Back: Present: Normal Inspection. No: CVA Tenderness, Midline Tenderness Upper Extremity: Present: Normal Inspection, Normal ROM, NORMAL PULSES, Neurovascularly Intact, Other (moving all limbs with ease) Lower Extremity: Present: Normal Inspection, NORMAL PULSES, Normal ROM, Neurovascularly Intact, Capillary Refill < 2 s, Other (+ ambulatory) Neurological: Present: GCS=15, CN II-XII Intact, Speech Normal Skin: Present: Warm, Normal Color, Other (cap refill < 1sec, no ulcerations, no petechiae, no rashes) Psychiatric: Present: Alert, Oriented x 3 Medical Decision Making ED Course and Treatment: Impression: acute on chronic abd pain, gallstones i have consider all the differential diagnosis regarding pt's chief medical complaints/clinical findings, including but are not limited to: biliary colic A/P: acute on chronic abd pain - labs - xray - us - observe - supportive care 09/29/17 17:[address] Moncada who agrees with patient admission to his service and wants a repeat of the ultrasound. Additionally, wants consult with surgery Dr. Stuart and GI, Dr. Nicole. 09/29/17 17:30 Case discussed with residential real estate assistant who is aware of plan and will see patient at bedside. 09/29/17 18:02 pt is made aware of her medical results agrees with admission Re-evaluation Time: 18:02 Reassessment Condition: Improving,but remains with symptoms - Lab Interpretations I have reviewed the lab results: Yes Interpretation: All labs normal - RAD Interpretation Narrative RAD Interpretations (Text): 09/29/17 20:00 Ultrasound: FINDINGS: Liver: The liver is increased in echogenicity, most commonly due to fatty infiltration, but other chronic liver diseases may have a similar appearance. The liver measures 15.3 cm in length. Gallbladder: There is increased echogenicity within the gallbladder, consistent with sludge. No shadowing gallstones are visualized. There is no significant wall thickening. Common bile duct: The common bile duct measures 0.4 cm in diameter, which is within normal limits. Pancreas: The pancreas is poorly visualized. Kidneys: The right kidney measures 11.4 x 4.1 x 4.5 cm. The left kidney measures 11.4 x 5.2 x 4.2 cm. There is no hydronephrosis or shadowing nephrolithiasis bilaterally. Spleen: The spleen measures 8.3 x 3.9 x 4.1 cm and is heterogeneous in echogenicity. Aorta: Poorly visualized. Inferior vena cava: Poorly visualized. IMPRESSION: 1. The liver is increased in echogenicity, most commonly due to fatty infiltration, but other chronic liver diseases may have a similar appearance. 2. There is increased echogenicity within the gallbladder, consistent with sludge. There is no significant wall thickening. 3. Additional findings described above. 09/29/17 20:08 CXR - mild cardiomeagly Radiology Orders: 09/29/17 17:24 CHEST TWO VIEWS (PA/LAT) [RAD] Stat 09/29/17 17:29 ABDOMEN COMPLETE [US] Stat Avid Editor: Radiologist - EKG Interpretation EKG Interpretation (Text): 09/29/17 18:46 Sinus roxi at 55 bpm, normal axis, no ectopy, inverted T in leads, no st changes, BORDERLINE EKG; no gross changes compare with old ekg 12/2016 Interpreted by ED Physician: Yes Type: 12 lead EKG Comparison: Similar to previous EKG - Medication Orders Current Medication Orders: Sodium Chloride (Sodium Chloride 0.9%) 1,000 mls @ 100 mls/hr IV .Q10H STA Stop: 09/30/17 03:22 Last Admin: 09/29/17 18:23 Dose: 100 mls/hr eMAR Start Stop Document 09/29/17 18:23 [place] (Rec: 09/29/17 18:24 [place] [id number] Intravenous Solution Start Date 09/29/17 Start Time 18:23 End Date 09/29/17 Discontinued Medications Famotidine (Pepcid) 20 mg IVP STAT STA Stop: 09/29/17 17:24 Last Admin: 09/29/17 18:24 Dose: 20 mg IVP Administration Document 09/29/17 18:24 [place] (Rec: 09/29/17 18:24 [place] [id number] Charges for Administration # of IVP Administrations 1 Metoclopramide HCl (Reglan) 10 mg IVP STAT STA Stop: 09/29/17 17:24 Last Admin: 09/29/17 18:24 Dose: 10 mg IVP Administration Document 09/29/17 18:24 [place] (Rec: 09/29/17 18:24 [place] [id number]) Charges for Administration # of IVP Administrations 1 Morphine Sulfate (Morphine) 4 mg IVP STAT STA Stop: 09/29/17 17:24 Last Admin: 09/29/17 18:24 Dose: 4 mg MAR Pain Assessment Document 09/29/17 18:24 LA (Rec: 09/29/17 18:24 [place] [id number]) Pain Reassessment Is this a pain reassessment? No Sleep Is patient sleeping during reassessment? No Presence of Pain Presence of Pain Yes Pain Scale Used Pain Scale Used Numeric Location Left, Right or Bilateral Right Upper or Lower Upper Pain Location Body Site Abdomen Description Description Intermittent Intensity of Pain at present 7 IVP Administration Document 09/29/17 18:24 [place] (Rec: 09/29/17 18:24 [place] [id number]) Charges for Administration # of IVP Administrations 1 - Scribe Statement The provider has reviewed the documentation as recorded by the Denise Ansari Provider Scribe Attestation: All medical record entries made by the Scribe were at my direction and personally dictated by me. I have reviewed the chart and agree that the record accurately reflects my personal performance of the history, physical exam, medical decision making, and the department course for this patient. I have also personally directed, reviewed, and agree with the discharge instructions and disposition. Disposition/Present on Arrival - Present on Arrival Any Indicators Present on Arrival: No History of DVT/PE: No History of Uncontrolled Diabetes: No Urinary Catheter: No History of Decub. Ulcer: No History Surgical Site Infection Following: None - Disposition Have Diagnosis and Disposition been Completed?: Yes Diagnosis: Right sided abdominal pain, Hyperglycemia, Biliary colic Disposition: HOSPITALIZED Disposition Time: 17:30 Patient Plan: Admission, Telemetry Patient Problems: Current Active Problems Problem Status Onset Hyperglycemia Acute Right sided abdominal pain Acute Biliary colic Acute Condition: STABLE
[2017-09-29] MEDS ORDERED: Sodium Chloride 0.9% 1,000 ML IV STA (17:23)
[2017-09-29] MEDS ORDERED: Morphine 4 mg/ml ISec IVP STA (17:23)
[2017-09-29 18:30] LABS: BASO # 0.01 K/mm3 (0.0-2.0); BASO % 0.2 % (0.0-3.0); EOS # 0.4 (0.0-0.7); GRAN # 2.75 (1.4-6.5); GRAN % 59.5 % (50.0-68.0); HEMOGLOBIN 12.2 g/dL (12.0-16.0); MEAN CELL VOLUME 82.6 fl (80.0-105.0); MEAN CORPUSCULAR HEMOGLOBIN 26.2 pg (25.0-35.0); MEAN CORPUSCULAR HGB CONC 31.8 g/dl (31.0-37.0); MEAN PLATELET VOLUME 10.7 fl (7.0-11.0); MONO # 0.5 (0.1-0.6); MONO % 11.3 % (1.0-6.0); RBC 4.65 10^6/uL (3.5-6.1); RED CELL DISTRIBUTION WIDTH 16.8 % (11.5-14.5); WHITE BLOOD COUNT 4.6 10^3/ul (4.5-11.0)
[2017-09-29 18:35] LABS: VENOUS BLOOD GAS BASE EXCESS 0.8 mmol/L (0.0-2.0); VENOUS BLOOD GAS PO2 67 mm/Hg (30-55); VENOUS BLOOD PH 7.26 (7.32-7.43)
[2017-09-29 18:41] LABS: ALB/GLOB RATIO 1.2 (1.1-1.8); ALBUMIN 3.6 g/dL (3.0-4.8); ALT/SGPT 23 U/L (7-56); AST/SGOT 22 U/L (14-36); BLOOD UREA NITROGEN 33 mg/dL (7-21); GFR AFRICAN-AMERICAN 59; GFR NON-AFRICAN AMERICAN 49; INR 1.15 (0.93-1.08); LIPASE 123 U/L (23-300); PARTIAL THROMBOPLASTIN TIME 27.4 Seconds (25.1-36.5); PROTHROMBIN TIME 13.2 SECONDS (9.4-12.5)
[2017-09-29 18:52] LABS: TROPONIN I < 0.01 ng/mL
--- NOTE | 2017-09-29 19:59 | US ---
EXAM: US Abdomen Complete EXAM DATE/TIME: 09/29/2017 5:29 PM CLINICAL HISTORY: The patient age is 72 years old and is female; Pain; Abdominal pain; Acute; Additional info: Right upper abd pain Facility exam id and description: Us abd abdomen complete TECHNIQUE: Real-time ultrasound of the abdomen (complete) with image documentation. COMPARISON: US - ABDOMEN COMPLETE 2017-08-01 10:29 FINDINGS: Liver: The liver is increased in echogenicity, most commonly due to fatty infiltration, but other chronic liver diseases may have a similar appearance. The liver measures 15.3 cm in length. Gallbladder: There is increased echogenicity within the gallbladder, consistent with sludge. No shadowing gallstones are visualized. There is no significant wall thickening. Common bile duct: The common bile duct measures 0.4 cm in diameter, which is within normal limits. Pancreas: The pancreas is poorly visualized. Kidneys: The right kidney measures 11.4 x 4.1 x 4.5 cm. The left kidney measures 11.4 x 5.2 x 4.2 cm. There is no hydronephrosis or shadowing nephrolithiasis bilaterally. Spleen: The spleen measures 8.3 x 3.9 x 4.1 cm and is heterogeneous in echogenicity. Aorta: Poorly visualized. Inferior vena cava: Poorly visualized. IMPRESSION: 1. The liver is increased in echogenicity, most commonly due to fatty infiltration, but other chronic liver diseases may have a similar appearance. 2. There is increased echogenicity within the gallbladder, consistent with sludge. There is no significant wall thickening. 3. Additional findings described above.
--- NOTE | 2017-09-29 20:35 | CARD ---
APPROVED REPORT EKG Measurement Heart [id number] CT [id number] <Conclusion> Sinus bradycardia Otherwise normal ECG
[2017-09-29] MEDS ORDERED: Albuterol-Ipratrop 3 mg / 0.5 (3 ml) UD IH PRN (21:36)
[2017-09-29] MEDS ORDERED: Insulin Reg-HIGH-Coverage SC SCH (22:00)
--- NOTE | 2017-09-29 22:15 | CP.PCM.CON ---
History of Present Illness - History of Present Illness History of Present Illness: Surgery: Dr. Stuart CC: Abd pain HPI: 72F w. pmh of CAD, HTN, a-fib, anxiety, Breast CA, varicose veins, and asthma presents to ED w. ERENQ abd pain of increasing severity for the pas 6 months. Pt states that the pain is intermittent but is increasing in frequency. The pain is unrelated to diet. She states that the pain is relieved by heating pads and tylenol. She reports nausea but no vomiting. She states that she does have diarrhea but this is chronic and 2/2 linzess. She denies fevers but reports chills. Pt has U/S done in ED which showed sludge, this is consistent w. U/S done back in july. PMH: see above PSH: L knee, breast surgery, portacath Meds: MAR reviewed ALL: iodine > rash Social: no tobacco, ETOH or drugs Fhx: non-contributory Review of Systems - Review of Systems All systems: reviewed and no additional remarkable complaints except (HPI) Past Patient History - Infectious Disease Hx of Infectious Diseases: None - Tetanus Immunizations Tetanus Immunization: Unknown - Past Social History Smoking Status: Never Smoked - CARDIAC Hx Pacemaker: No - PULMONARY Hx Respiratory Disorders: Yes Hx Asthma: Yes - NEUROLOGICAL Hx Paralysis: No - HEENT Hx HEENT Problems: No - RENAL Hx Chronic Kidney Disease: No - ENDOCRINE/METABOLIC Hx Diabetes Mellitus Type 1: Yes - HEMATOLOGICAL/ONCOLOGICAL Hx Blood Transfusions: No Hx Blood Transfusion Reaction: No - INTEGUMENTARY Hx Dermatological Problems: No - MUSCULOSKELETAL/RHEUMATOLOGICAL Hx Musculoskeletal Disorders: Yes - GASTROINTESTINAL Hx Gastrointestinal Disorders: No - GENITOURINARY/GYNECOLOGICAL Hx Genitourinary Disorders: Yes Other/Comment: breast ca - PSYCHIATRIC Hx Emotional Abuse: No Hx Physical Abuse: No Hx Substance Use: No - SURGICAL HISTORY Hx Cardiac Catheterization: Yes Other/Comment: L knee - ANESTHESIA Hx Anesthesia Reactions: Yes (HEART RATE DROPPED) Hx Malignant Hyperthermia: No Meds Allergies/Adverse Reactions: Allergies Allergy/AdvReac Type Severity Reaction Status Date / Time iodine Allergy Intermediate HIVES, Verified 09/29/17 17:04 ITCHING shellfish derived Allergy Intermediate HIVES, Verified 09/29/17 17:04 ITCHING - Medications Medications: Current Medications Albuterol/Ipratropium (Duoneb 3 Mg/0.5 Mg (3 Ml) Ud) 3 ml IH Q6H PRN PRN Reason: Shortness of Breath Stop: 09/30/17 09:46 Alprazolam (Xanax) 0.25 mg PO HS PRN; Protocol PRN Reason: Anxiety Stop: 10/06/17 21:39 Alprazolam (Xanax) 0.25 mg PO HS PRN PRN Reason: Insomnia Stop: 10/06/17 21:39 Anastrozole (Arimidex 1 Mg Tab) 1 mg PO DAILY [facility] Atorvastatin Calcium (Lipitor) 20 mg PO DIN [facility] Enoxaparin Sodium (Lovenox) 85 mg SC Q12H NIEVES PRN Reason: Protocol Folic Acid (Folic Acid) 1 mg PO DAILY [facility] Sodium Chloride (Sodium Chloride 0.9%) 1,000 mls @ 100 mls/hr IV .Q10H STA Stop: 09/30/17 03:22 Last Admin: 09/29/17 18:23 Dose: 100 mls/hr Insulin Human Regular (Humulin R High) 0 units SC ACHS NIEVES PRN Reason: Protocol Losartan Potassium (Cozaar) 50 mg PO DAILY [facility] Metoprolol Succinate (Toprol Xl) 12.5 mg PO QAM [facility] Morphine Sulfate (Morphine) 2 mg IVP Q4H PRN PRN Reason: Pain, severe (8-10) Pantoprazole Sodium (Protonix Ec Tab) 40 mg PO 0600 NIEVES Ursodiol (Actigall) 300 mg PO DAILY [facility] Physical Exam - Constitutional Appears: Non-toxic, No Acute Distress - Head Exam Head Exam: ATRAUMATIC, NORMOCEPHALIC - Eye Exam Eye Exam: EOMI - ENT Exam ENT Exam: Mucous Membranes Moist - Neck Exam Neck exam: Positive for: Full Rom - Respiratory Exam Respiratory Exam: NORMAL BREATHING PATTERN. absent: Accessory Muscle Use, Respiratory Distress - GI/Abdominal Exam GI & Abdominal Exam: Soft, Tenderness (RUQ). absent: Distended, Firm, Guarding , Rebound, Rigid - Extremities Exam Extremities exam: Negative for: calf tenderness, pedal edema - Neurological Exam Neurological exam: Alert, Oriented x3 - Psychiatric Exam Psychiatric exam: Normal Affect, Normal Mood - Skin Skin Exam: Normal Color, Warm Results - Vital Signs Recent Vital Signs: Last Vital Signs Temp 98.4 F 09/29/17 17:04 Pulse 59 L 09/29/17 17:04 Resp 18 09/29/17 17:04 BP 152/55 H 09/29/17 17:04 Pulse Ox 100 09/29/17 17:04 - Labs Result Diagrams: 09/29/17 18:07 09/29/17 18:07 Labs: Laboratory Results - last 24 hr 09/29/17 09/29/17 09/29/17 18:07 18:07 18:07 WBC 4.6 RBC 4.65 Hgb 12.2 Hct 38.4 MCV 82.6 MCH 26.2 MCHC 31.8 RDW 16.8 H Plt Count 235 MPV 10.7 Gran % 59.5 Lymph % (Auto) 21.0 L [place] % (Auto) 11.3 H Eos % (Auto) 8.0 H Baso % (Auto) 0.2 Gran # 2.75 Lymph # (Auto) 1.0 L [place] # (Auto) 0.5 Eos # (Auto) 0.4 Baso # (Auto) 0.01 PT 13.2 H INR 1.15 H APTT 27.4 pO2 VBG pH VBG pCO2 VBG HCO3 VBG Total CO2 VBG O2 Sat (Calc) VBG Base Excess VBG Potassium Sodium 144 Chloride 106 Glucose Lactate FiO2 Potassium 4.0 Carbon Dioxide 29 Anion Gap 13 BUN 33 H Creatinine 1.1 Est GFR ( Amer) 59 Est GFR (Non-Af Amer) 49 Random Glucose 86 Calcium 10.0 Total Bilirubin 0.3 AST 22 ALT 23 Alkaline Phosphatase 97 Troponin I < 0.01 D Total Protein 6.5 Albumin 3.6 Globulin 2.9 Albumin/Globulin Ratio 1.2 Lipase 123 Venous Blood Potassium 09/29/17 18:07 WBC RBC Hgb Hct MCV MCH MCHC RDW Plt Count MPV Gran % Lymph % (Auto) [place] % (Auto) Eos % (Auto) Baso % (Auto) Gran # Lymph # (Auto) [place] # (Auto) Eos # (Auto) Baso # (Auto) PT INR APTT pO2 67 H VBG pH 7.26 L VBG pCO2 65.0 H VBG HCO3 29.6 H VBG Total CO2 31.6 H VBG O2 Sat (Calc) 94.5 H VBG Base Excess 0.8 VBG Potassium 4.0 Sodium 140.0 Chloride 108.0 H Glucose 87 Lactate 1.6 FiO2 21.0 Potassium Carbon Dioxide Anion Gap BUN Creatinine Est GFR ( Amer) Est GFR (Non-Af Amer) Random Glucose Calcium Total Bilirubin AST ALT Alkaline Phosphatase Troponin I Total Protein Albumin Globulin Albumin/Globulin Ratio Lipase Venous Blood Potassium 4.0 - Imaging and Cardiology US - abdomen Status: Image reviewed by me, Report reviewed by me Assessment & Plan - Assessment and Plan (Free Text) Assessment: 72F w. biliary colic Plan: -Low fat diet -hold eliquis, start lovenox -will plan for OR for lap liza -d/w attending Angela PGY3
[2017-09-29] MEDS: Enoxaparin 100 mg Syringe SC SCH (22:58)
[2017-09-30] MEDS: Pantoprazole 40 mg EC Tab PO SCH (06:06)
[2017-09-30] MEDS: Sodium Chloride 0.9% 1,000 ML IV SCH (06:15)
[2017-09-30 06:20] LABS: HEMOGLOBIN 11.2 g/dL (12.0-16.0); MEAN CELL VOLUME 82.8 fl (80.0-105.0); MEAN CORPUSCULAR HEMOGLOBIN 26.7 pg (25.0-35.0); MEAN CORPUSCULAR HGB CONC 32.3 g/dl (31.0-37.0); MEAN PLATELET VOLUME 10.6 fl (7.0-11.0); RBC 4.19 10^6/uL (3.5-6.1); RED CELL DISTRIBUTION WIDTH 17.1 % (11.5-14.5); WHITE BLOOD COUNT 5.4 10^3/ul (4.5-11.0)
[2017-09-30 06:42] LABS: T4 6.3 ug/dL (5.5-11.0)
[2017-09-30 06:57] LABS: ALB/GLOB RATIO 1.1 (1.1-1.8); ALBUMIN 2.9 g/dL (3.0-4.8); CALCIUM 9.4 mg/dL (8.4-10.5)
[2017-09-30] MEDS: Insulin Lispro (humaLOG) LOW Coverage SC SCH ×4 (07:57→21:39)
[2017-09-30] MEDS: Metoprolol Succinate 50 mg XL Tab PO SCH (09:11)
--- NOTE | 2017-09-30 09:12 | RAD ---
HISTORY: epigastric pain COMPARISON: 12/12/2016 TECHNIQUE: Chest PA and lateral FINDINGS: LUNGS: No active pulmonary disease. PLEURA: No significant pleural effusion identified. No pneumothorax apparent. CARDIOVASCULAR: Mild cardiomegaly OSSEOUS STRUCTURES: No significant abnormalities. VISUALIZED UPPER ABDOMEN: Normal. OTHER FINDINGS: None. IMPRESSION: No active disease.
[2017-09-30] MEDS: Enoxaparin 100 mg Syringe SC SCH ×2 (09:15→22:15)
--- NOTE | 2017-09-30 10:45 | CON ---
DATE: ENDOCRINOLOGY FOLLOWUP LOCATION: Room 361 HISTORY OF PRESENT ILLNESS: This is a 72-year-old female with known history of type 2 insulin-requiring diabetes, on a combination of oral hypoglycemic therapy and insulin therapy, presenting here with severe biliary colic and persistent right upper quadrant pain with supervening nausea, dyspepsia and vomiting and is now being referred for diabetic evaluation and management. PAST MEDICAL HISTORY: History of recent right upper quadrant pain with persistent biliary colic, progressively worsening over the last few days prior to admission with underlying cholelithiasis and has been recommended to have cholecystectomy by her specialist as noted. History of type 2 insulin-requiring diabetes, on a combination of oral hypoglycemic therapy with Amaryl given as 4 mg b.i.d. and Jardiance 10 mg once daily. She also is using Lantus given as 40 units subcutaneous at bedtime daily with Humalog given as a variable dose of 10 to 20 units t.i.d. before meals depending on the variability of her oral intake. History of hypertensive cardiovascular disease and dyslipidemia, history of coronary artery disease and peripheral arterial disease and vasculopathy. She also has diabetic retinopathy and polyneuropathy with early diabetic nephropathy and overt proteinuria. History of generalized osteoporosis, currently on Boniva at 150 mg once a month as noted. History of hypothyroidism, on levothyroxine replacement therapy. Also, history of chronic obstructive lung disease with multiple admissions for chronic asthmatic bronchitis as noted. History of generalized anxiety and depression and is currently on Xanax medication as noted and given. History of hypothyroidism, but mentioned on levothyroxine replacement therapy. She also has habitual constipation, currently on Linzess medication as given. History of cardiac tachyarrhythmias with chronic atrial fibrillation and is currently on oral anticoagulation therapy, using Eliquis at 2.5 mg b.i.d. History of breast carcinoma with prior mastectomy undertaken. She also has a previous surgical procedure in the left knee for severe underlying osteoarthritis. Moreover, she also had a previous chemo and radiation therapy for underlying breast malignancy as noted. FAMILY HISTORY: Positive for hypertension and diabetes. SOCIAL HISTORY: The patient is and has a very supportive and family and also extended family. No known substance use. REVIEW OF SYSTEMS: As mentioned above. Admits to generalized body weakness with progressive bouts of dizziness and lightheadedness, worse on the day of admission. Also, admits to generalized weakness and easy fatigability and tiredness with suboptimal energy level. She also admits to intermittent precordial chest pain with progressive shortness of breath, especially on exertion. Her oral intake has been very poor and variable with anorexia in the last 2 to 3 days prior to admission and because of persistent dyspepsia, nausea and supervening vomiting episodes, also admits to severe and progressively worsening right upper quadrant pain with intermittent bouts of biliary colic as mentioned. Also admits to moderate bouts of polyuria, nocturia and polydipsia as noted. Also, admits to habitual constipation. Moreover, she also has lower extremity painful paresthesias, especially nocturnally with lower back pain as noted. PHYSICAL EXAMINATION GENERAL: Overweight female in moderate painful distress. VITAL SIGNS: Blood pressure of 160/90, pulse of 70 beats per minute and regular, temperature 98, respirations 20, height is 5 feet 3 inches, weight is 188 pounds. HEENT: Head normocephalic. Eyes anicteric with pink conjunctivae. Funduscopy not possible at this time. Ears, nose and throat, otherwise, normal. NECK: Supple. Thyroid gland is normal in size. No carotid bruits or cervical adenopathy. CARDIOPULMONARY: Some adynamic precordium. S1, S2 is rapid and regular. LUNGS: Show scattered rhonchi. ABDOMEN: Obese, soft with positive direct tenderness in the right upper quadrant. No evidence of any rebound tenderness. Bowel sounds are hypoactive. EXTREMITIES: Pulses are +2 bilaterally. No peripheral edema or any active dermatosis. LABORATORY DATA: Chemistries: BUN of 33, sodium 144, potassium 4, chloride 106, CO2 29, glucose 86 and creatinine 1.1. Her glucose level was 126 tonight as noted. The hematology; WBC 4.6, hemoglobin of 12, hematocrit of 38, MCV 82, platelets 235,000. ASSESSMENT: This is a 72-year-old female with uncontrolled and decompensated type 2 insulin-requiring diabetes with suboptimal metabolic control on the outpatient despite the combination of oral hypoglycemic therapy and insulin therapy with her A1c levels always in the range of 10% to 12% for over 10 years or so as noted presenting here with acute biliary colic from underlying cholelithiasis as noted. Moreover, she has diabetic microvascular complications of retinopathy with multiple laser treatments to both eyes and diabetic painful polyneuropathy in both lower extremities with early diabetic nephropathy and overt proteinuria. She also has diabetic macrovascular complications of coronary artery disease with underlying cardiac tachyarrhythmias, on oral anticoagulation therapy with peripheral arterial disease and vasculopathy as noted. we will concur with the present GI evaluation and management and since the patient will be placed and will be placed n.p.o. overnight, we will then modify her current insulin coverage scale to obviate hypoglycemia in a very low-dose algorithm, using Humalog insulin has been ordered as given. Moreover, if fasting hyperglycemic levels supervene by tomorrow, then we will give her long-acting basal insulin even if she is n.p.o. as she continues to have ongoing hepatic gluconeogenesis despite having no oral intake, otherwise. We will obtain serial chemistries and supplement accordingly as needed and continue the IV hydration as given. We will obtain hemoglobin A1c prior poor glycemic control and baseline thyroid function studies and lipid panel will be ordered. As her oral intake is advanced pending the GI and surgical evaluation, then we will start her back on a more physiologic basal and bolus insulin drug combination as indicated. We will follow and advise accordingly. Radha Luis MD
--- NOTE | 2017-09-30 11:26 | HP ---
The patient was admitted through the Emergency Room to room 361, bed 1. HISTORY OF PRESENT ILLNESS: This is a 72-year-old white female whose past medical history includes diabetes, carcinoma of the breast - high risk stage 1 on the right breast - status post lumpectomy, radiation and chemotherapy - currently on Arimidex, history of recent cardiac catheterization, who presents to the ER after being seen in the office earlier on for complaints of [id number] pain in the right upper quadrant secondary to [id number] clinical cholecystitis evolving secondary to gallstones. The patient was seen by Dr. Nicole, the water treatment plant mechanic, 10 days ago. The patient was scheduled for an upper endoscopy and endoscopic ultrasound to evaluate for any ulcers and at the same time, to look at the status of the gallstones. There were no stones in the bladder and there were no significant ulcerations in the stomach, which she was documented in the past to have. In view of the worsening condition, the patient was seen in the office, mentioned pain in the right upper quadrant being at least 9 at times over 10. The patient was advised to come to the ER and probably get admitted. The patient states that over the past week, the right upper quadrant pain is worsened with nausea, loose bowel movements, no appetite, some emesis yesterday. Additionally, she has been having occasional chest discomfort with palpitation. Denies any history of fevers, chills, vomiting, dysuria, shortness of breath, or any other complaints. The patient was sent to the ER for further management where she had additional workup done. She was started on IV fluids and has been kept n.p.o. for now until further decisions are made as far as surgical management is concerned. PAST MEDICAL HISTORY: Significant for the fact that she is significantly diabetic - on oral hypoglycemic agents plus insulin coverage with long-acting and intermediate-acting insulin. Blood sugars have been ranging between 180 to about 400 and it has been difficult for her to control her sugars - as an outpatient, she was attempting to do so gradually. The patient also has a history of stage I carcinoma of the breast, status post chemotherapy and radiation, status post lumpectomy and mellisa dissection. The patient also has a history of asthma and exacerbation of her asthma on an intermittent basis. The patient also has a history of coronary artery disease with paroxysmal atrial fibrillation - currently on anticoagulants for the same because of the hypercoagulable state. The patient in the past had documented ulcerations in the stomach when she had anemia and constant heartburn, for which she had undergone endoscopy and colonoscopy. REVIEW OF SYSTEMS A 12-system review of systems was done. Except for what is mentioned in the HPI, all of her others were negative. ALLERGIES: THE PATIENT HAS KNOWN ALLERGIES TO IODINE WITH HIVES AND ITCHING AND HIVES AND ITCHING WELL. MEDICATIONS: Reviewed. Home medications include Linzess, glimepiride, pantoprazole, insulin glargine which is Lantus, insulin lispro which is Humalog, apixaban, Jardiance, metoprolol succinate 12.5 mg p.o. daily, Cozaar 50 mg daily, Crestor 5 mg daily, Xanax p.r.n., anastrozole 1 mg daily, Pulmicort one puff inhale p.r.n., and Brovana again inhaled p.r.n. The patient is on budesonide and Pulmicort respules 0.1 mg inhaled p.r.n. She is on vitamin D supplements and Actigall 300 mg p.o. daily. PHYSICAL EXAMINATION GENERAL: Reveals the patient to be awake and alert, in some distress because of the pain, ill looking. The patient appears to be nontoxic-looking, but uncomfortable in bed. She is in mild distress secondary to the pain. Pain/distress at times is 9/10. The patient is awake, alert, and oriented x3. VITAL SIGNS: Pulse is bradycardic. Respirations are normal. HEENT: Head is normocephalic, atraumatic. Conjunctivae are pale. Sclerae are anicteric. Pupils are equally reactive to light and accommodation. Temporal muscle wasting is noted. Examination of the oropharynx reveals mucous membranes to be normal. The patient has no drooling or stridor. No exudates or any lesions in the mouth. Tongue coating appears to be better. The patient was on Mycelex prior to this. Examination of the rest of the oropharynx is unremarkable. NECK: Supple. There is no adenopathy. No jugular venous distention noted. There is no evidence of any meningeal signs or midline tenderness. LUNGS: Clear to percussion and auscultation. CARDIOVASCULAR: Examination reveals the PMI to be in the fifth intercostal space. S1 and S2 are normal. No gallop or murmur is heard. ABDOMEN: Soft. Mildly distended. The patient has positive Patel sign with mild midline tenderness as well in this obese female without any masses. Bowel sounds are hyperactive. BACK: Reveals normal to inspection. No CVA tenderness or midline tenderness. EXTREMITIES: Upper extremities are normal to inspection, range of motion. No evidence of lymphedema is noted. Examination of the lower extremity again reveals no cyanosis, clubbing or edema. NEUROLOGIC: Higher functions are normal. No focal deficits are noted. SKIN: Warm and dry without any skin lesions noted. PSYCHIATRIC: The patient is awake, alert, and oriented, in no significant distress. ASSESSMENT NOTES AND PLAN: The patient has [id number] cholecystitis that is probably evolving despite the counts not showing anything significant at this point in time. Diabetes mellitus with high blood sugars, intractable pain related to evolving cholecystitis - superimposed on chronic cholelithiasis in the background history of having coagulopathy, coronary artery disease and paroxysmal atrial fibrillation along with her diabetes, which has been difficult to control. The patient is going to be started on IV fluids. We are going to get surgical evaluation. The patient is going to be seen by Gastroenterology again to adjust her medicines. We are going to get Pulmonary and Cardiology involved as well in the management of this very complex patient with multiple comorbid medical issues. The patient will be treated with PPI for gastric prophylaxis and the Eliquis is going to be on hold in case we are planning to do surgery over the next 48 hours[address] Already spoke with Dr. Stuart who is going to be seeing the patient. Already spoke with Dr. Nicole, the water treatment plant mechanic, who is also going to be seeing the patient. Meanwhile, keep the patient on liquid diet at this point. Hold the Eliquis. Follow the labs again early in the morning and continue IV fluids and hydration for now. Consults with Dr. Radha Luis, the power generation technician, will also be obtained just to control the blood sugars. Alyssa Zabala MD
--- NOTE | 2017-09-30 12:06 | CP.PCM.CON ---
<Miranda Hubbard - Last Filed: 09/30/17 12:04> History of Present Illness - History of Present Illness History of Present Illness: Seen and examined at the bedside earlier this morning, chart reviewed. Request for GI consult is for biliary colic. HPI: This is a 72-year-old female with a past medical history of diabetes mellitus, hypertension, paroxysmal atrial fibrillation, hypercoagulable state on anticoagulants, came to the emergency room with complaints of increasing right upper quadrant abdominal pain for at least 6 months. Patient reports the pain to be intermittent but increasing in frequency. Denies postprandial abdominal pain, she does complain of nausea but no vomiting. No reports of any fever or chills, shortness of breath or chest pain. She has history of chronic constipation and is on lens S, her last dose was yesterday at 5 PM and she did have a bowel movement. Occasional diarrhea from lens S. On admission she had an abdominal ultrasound which showed sludge, no thickening, fatty liver, and CBD measured 4.0. She had some breakfast this morning which she tolerated well. Denies anorexia. Her last endoscopy was 09/08/2017, found to have gastroparesis, chronic gastritis. Duodenum was normal. Her last colonoscopy was October 2014 at [facility] with Dr. Dimas, found to have internal hemorrhoids. This patient was recommended for elective cholecystectomy in the past. Past medical history: Diabetes mellitus, hypertension, atrial fibrillation on Elaquis, obesity, chronic constipation, peptic ulcer disease, gastroparesis Past surgical history: Left knee surgery, breast surgery, Port-A-Cath Allergies: Iodine Social history: Denies tobacco, EtOH or illicit drugs Family history: Noncontributory Medications: Reviewed as per SEP, significant for Elaquis ROS: Systems review took positive finding see HPI Past Patient History - Infectious Disease Hx of Infectious Diseases: None - Tetanus Immunizations Tetanus Immunization: Unknown - Past Social History Smoking Status: Never Smoked - CARDIAC Hx Cardiac Disorders: Yes Hx Angina: Yes Hx Cardia Arrhythmia: Yes Hx Hypertension: Yes Hx Pacemaker: No Other/Comment: an fib - PULMONARY Hx Respiratory Disorders: Yes Hx Asthma: Yes Hx Bronchitis: Yes - NEUROLOGICAL Hx Neurological Disorder: No - HEENT Hx HEENT Problems: Yes Hx Blind: Yes (blind L eye) - RENAL Hx Chronic Kidney Disease: No - ENDOCRINE/METABOLIC Hx Endocrine Disorders: Yes Hx Diabetes Mellitus Type 1: Yes - HEMATOLOGICAL/ONCOLOGICAL Hx Blood Disorders: Yes Hx Cancer: Yes (L breast) Hx Chemotherapy: Yes - INTEGUMENTARY Hx Dermatological Problems: No - MUSCULOSKELETAL/RHEUMATOLOGICAL Hx Musculoskeletal Disorders: Yes Hx Arthritis: Yes Hx Falls: No Other/Comment: L knee meniscus - GASTROINTESTINAL Hx Gastrointestinal Disorders: Yes Hx Gall Bladder Disease: Yes Hx Gastroesophageal Reflux: Yes Other/Comment: GI bleed - GENITOURINARY/GYNECOLOGICAL Hx Genitourinary Disorders: Yes Other/Comment: breast ca - PSYCHIATRIC Hx Psychophysiologic Disorder: Yes Hx Anxiety: Yes Hx Emotional Abuse: No Hx Physical Abuse: No Hx Substance Use: No - SURGICAL HISTORY Hx Surgeries: Yes Hx Cardiac Catheterization: Yes Hx Orthopedic Surgery: Yes (L knee) Other/Comment: L knee, removal of lymph nodes R breast area, L eye sx, hemmorhoidectomy - ANESTHESIA Hx Anesthesia Reactions: Yes (HEART RATE DROPPED) Hx Malignant Hyperthermia: No Meds Allergies/Adverse Reactions: Allergies Allergy/AdvReac Type Severity Reaction Status Date / Time iodine Allergy Intermediate HIVES, Verified 09/29/17 17:04 ITCHING shellfish derived Allergy Intermediate HIVES, Verified 09/29/17 17:04 ITCHING - Medications Medications: Current Medications Alprazolam (Xanax) 0.25 mg PO HS PRN; Protocol PRN Reason: Anxiety Stop: 10/06/17 21:39 Alprazolam (Xanax) 0.25 mg PO HS PRN PRN Reason: Insomnia Stop: 10/06/17 21:39 Anastrozole (Arimidex 1 Mg Tab) 1 mg PO HS NIEVES Atorvastatin Calcium (Lipitor) 20 mg PO DIN [facility] Enoxaparin Sodium (Lovenox) 85 mg SC Q12H [facility] PRN Reason: Protocol Last Admin: 09/30/17 09:15 Dose: 85 mg Folic Acid (Folic Acid) 1 mg PO DAILY [facility] Last Admin: 09/30/17 09:10 Dose: 1 mg Sodium Chloride (Sodium Chloride 0.9%) 1,000 mls @ 100 mls/hr IV .Q10H [facility] Last Admin: 09/30/17 06:15 Dose: 100 mls/hr Insulin Human Lispro (Humalog Low) 0 units SC ACHS [facility] PRN Reason: Protocol Last Admin: 09/30/17 07:57 Dose: Not Given Losartan Potassium (Cozaar) 50 mg PO DAILY [facility] Last Admin: 09/30/17 09:08 Dose: 50 mg Metoprolol Succinate (Toprol Xl) 12.5 mg PO QAM [facility] Last Admin: 09/30/17 09:11 Dose: Not Given Morphine Sulfate (Morphine) 2 mg IVP Q4H PRN PRN Reason: Pain, severe (8-10) Pantoprazole Sodium (Protonix Ec Tab) 40 mg PO 0600 [facility] Last Admin: 09/30/17 06:06 Dose: 40 mg Ursodiol (Actigall) 300 mg PO DAILY [facility] Last Admin: 09/30/17 09:08 Dose: 300 mg Physical Exam - Constitutional Appears: No Acute Distress - Head Exam Head Exam: NORMOCEPHALIC - Eye Exam Eye Exam: Normal appearance. absent: Scleral icterus - ENT Exam ENT Exam: Mucous Membranes Moist - Neck Exam Neck exam: Positive for: Normal Inspection - Respiratory Exam Respiratory Exam: NORMAL BREATHING PATTERN. absent: Respiratory Distress - Cardiovascular Exam Cardiovascular Exam: +S1, +S2 - GI/Abdominal Exam GI & Abdominal Exam: Distended, Normal Bowel Sounds, Soft, Tenderness (RUQ). absent: Guarding, Rebound - Extremities Exam Extremities exam: Positive for: pedal pulses present. Negative for: calf tenderness, pedal edema - Neurological Exam Neurological exam: Alert, CN II-XII Intact, Oriented x3 - Skin Skin Exam: Dry, Warm Results - Vital Signs Recent Vital Signs: Last Vital Signs Temp 98.0 F 09/30/17 06:00 Pulse 55 L 09/30/17 10:00 Resp 20 09/30/17 06:00 BP 152/61 H 09/30/17 09:08 Pulse Ox 96 09/30/17 06:00 - Labs Result Diagrams: 09/30/17 06:00 09/30/17 06:00 Labs: Laboratory Results - last 24 hr 09/29/17 09/29/17 09/29/17 18:07 18:07 18:07 WBC 4.6 RBC 4.65 Hgb 12.2 Hct 38.4 MCV 82.6 MCH 26.2 MCHC 31.8 RDW 16.8 H Plt Count 235 MPV 10.7 Gran % 59.5 Lymph % (Auto) 21.0 L Stephens % (Auto) 11.3 H Eos % (Auto) 8.0 H Baso % (Auto) 0.2 Gran # 2.75 Lymph # (Auto) 1.0 L Stephens # (Auto) 0.5 Eos # (Auto) 0.4 Baso # (Auto) 0.01 PT 13.2 H INR 1.15 H APTT 27.4 pO2 VBG pH VBG pCO2 VBG HCO3 VBG Total CO2 VBG O2 Sat (Calc) VBG Base Excess VBG Potassium Sodium 144 Chloride 106 Glucose Lactate FiO2 Potassium 4.0 Carbon Dioxide 29 Anion Gap 13 BUN 33 H Creatinine 1.1 Est GFR ( Amer) 59 Est GFR (Non-Af Amer) 49 POC Glucose (mg/dL) Random Glucose 86 Calcium 10.0 Total Bilirubin 0.3 AST 22 ALT 23 Alkaline Phosphatase 97 Troponin I < 0.01 D Total Protein 6.5 Albumin 3.6 Globulin 2.9 Albumin/Globulin Ratio 1.2 Triglycerides Cholesterol LDL Cholesterol Direct HDL Cholesterol Amylase Lipase 123 Thyroxine (T4) TSH 3rd Generation Venous Blood Potassium 09/29/17 09/29/17 09/30/17 18:07 22:33 06:00 WBC 5.4 RBC 4.19 Hgb 11.2 L Hct 34.7 L MCV 82.8 MCH 26.7 MCHC 32.3 RDW 17.1 H Plt Count 221 MPV 10.6 Gran % Lymph % (Auto) Stephens % (Auto) Eos % (Auto) Baso % (Auto) Gran # Lymph # (Auto) Stephens # (Auto) Eos # (Auto) Baso # (Auto) PT INR APTT pO2 67 H VBG pH 7.26 L VBG pCO2 65.0 H VBG HCO3 29.6 H VBG Total CO2 31.6 H VBG O2 Sat (Calc) 94.5 H VBG Base Excess 0.8 VBG Potassium 4.0 Sodium 140.0 Chloride 108.0 H Glucose 87 Lactate 1.6 FiO2 21.0 Potassium Carbon Dioxide Anion Gap BUN Creatinine Est GFR ( Amer) Est GFR (Non-Af Amer) POC Glucose (mg/dL) 126 H Random Glucose Calcium Total Bilirubin AST ALT Alkaline Phosphatase Troponin I Total Protein Albumin Globulin Albumin/Globulin Ratio Triglycerides Cholesterol LDL Cholesterol Direct HDL Cholesterol Amylase Lipase Thyroxine (T4) TSH 3rd Generation Venous Blood Potassium 4.0 09/30/17 09/30/17 09/30/17 06:00 06:00 07:34 WBC RBC Hgb Hct MCV MCH MCHC RDW Plt Count MPV Gran % Lymph % (Auto) Stephens % (Auto) Eos % (Auto) Baso % (Auto) Gran # Lymph # (Auto) Stephens # (Auto) Eos # (Auto) Baso # (Auto) PT INR APTT pO2 VBG pH VBG pCO2 VBG HCO3 VBG Total CO2 VBG O2 Sat (Calc) VBG Base Excess VBG Potassium Sodium 144 Chloride 110 H Glucose Lactate FiO2 Potassium 4.4 Carbon Dioxide 29 Anion Gap 9 L BUN 26 H Creatinine 1.1 Est GFR ( Amer) 59 Est GFR (Non-Af Amer) 49 POC Glucose (mg/dL) 83 Random Glucose 71 Calcium 9.4 Total Bilirubin 0.3 AST 15 ALT 23 Alkaline Phosphatase 82 Troponin I Total Protein 5.6 L Albumin 2.9 L Globulin 2.6 Albumin/Globulin Ratio 1.1 Triglycerides 123 Cholesterol 157 LDL Cholesterol Direct 99 HDL Cholesterol 33 Amylase 48 Lipase 85 Thyroxine (T4) 6.3 TSH 3rd Generation 3.25 Venous Blood Potassium 09/30/17 11:36 WBC RBC Hgb Hct MCV MCH MCHC RDW Plt Count MPV Gran % Lymph % (Auto) Stephens % (Auto) Eos % (Auto) Baso % (Auto) Gran # Lymph # (Auto) Stephens # (Auto) Eos # (Auto) Baso # (Auto) PT INR APTT pO2 VBG pH VBG pCO2 VBG HCO3 VBG Total CO2 VBG O2 Sat (Calc) VBG Base Excess VBG Potassium Sodium Chloride Glucose Lactate FiO2 Potassium Carbon Dioxide Anion Gap BUN Creatinine Est GFR ( Amer) Est GFR (Non-Af Amer) POC Glucose (mg/dL) 184 H Random Glucose Calcium Total Bilirubin AST ALT Alkaline Phosphatase Troponin I Total Protein Albumin Globulin Albumin/Globulin Ratio Triglycerides Cholesterol LDL Cholesterol Direct HDL Cholesterol Amylase Lipase Thyroxine (T4) TSH 3rd Generation Venous Blood Potassium Assessment & Plan - Assessment and Plan (Free Text) Assessment: Assessment: Abdominal pain, likely secondary to biliary colic Obesity Gastroparesis History of atrial fibrillation History of peptic ulcer disease History of diabetes mellitus Plan: on full liquids, tolerating no postprandial pain OFF Eliquis and on Lovenox Continue protonix Monitor LFTs Surgery planned for laparoscopic cholecystectomy on 10/01/2017 nothing by mouth post midnight Thank you for this consultation and for allowing us to participate in your patient's care, further recommendations based upon clinical course. Seen and discussed with Dr. Nicole. <Otoniel Nicole V - Last Filed: 10/01/17 22:16> Meds - Medications Medications: Current Medications Alprazolam (Xanax) 0.25 mg PO HS PRN; Protocol PRN Reason: Anxiety Stop: 10/06/17 21:39 Alprazolam (Xanax) 0.25 mg PO HS PRN PRN Reason: Insomnia Stop: 10/06/17 21:39 Anastrozole (Arimidex 1 Mg Tab) 1 mg PO HS [facility] Last Admin: 09/30/17 22:15 Dose: 1 mg Atorvastatin Calcium (Lipitor) 20 mg PO DIN [facility] Last Admin: 09/30/17 16:30 Dose: Not Given Enoxaparin Sodium (Lovenox) 85 mg SC Q12H [facility] PRN Reason: Protocol Last Admin: 09/30/17 22:15 Dose: 85 mg Folic Acid (Folic Acid) 1 mg PO DAILY [facility] Last Admin: 09/30/17 09:10 Dose: 1 mg Hydralazine HCl (Apresoline) 10 mg IVP Q6 PRN PRN Reason: for SBP>170 Last Admin: 09/30/17 20:20 Dose: 10 mg Sodium Chloride (Sodium Chloride 0.9%) 1,000 mls @ 100 mls/hr IV .Q10H [facility] Last Admin: 09/30/17 06:15 Dose: 100 mls/hr Insulin Human Lispro (Humalog Low) 0 units SC ACHS [facility] PRN Reason: Protocol Last Admin: 09/30/17 21:39 Dose: Not Given Losartan Potassium (Cozaar) 100 mg PO DAILY [facility] Metoprolol Succinate (Toprol Xl) 12.5 mg PO QAM [facility] Last Admin: 09/30/17 09:11 Dose: Not Given Morphine Sulfate (Morphine) 2 mg IVP Q4H PRN PRN Reason: Pain, severe (8-10) Last Admin: 09/30/17 16:29 Dose: 2 mg Pantoprazole Sodium (Protonix Ec Tab) 40 mg PO 0600 [facility] Last Admin: 09/30/17 06:06 Dose: 40 mg Ursodiol (Actigall) 300 mg PO DAILY [facility] Last Admin: 09/30/17 09:08 Dose: 300 mg Results - Vital Signs Recent Vital Signs: Last Vital Signs Temp 98.0 F 09/30/17 06:00 Pulse 57 L 09/30/17 20:20 Resp 20 09/30/17 06:00 BP 197/83 H 09/30/17 20:20 Pulse Ox 96 09/30/17 06:00 - Labs Result Diagrams: 10/01/17 05:30 10/01/17 05:30 Labs: Laboratory Results - last 24 hr 09/30/17 09/30/17 09/30/17 06:00 06:00 06:00 WBC 5.4 RBC 4.19 Hgb 11.2 L Hct 34.7 L MCV 82.8 MCH 26.7 MCHC 32.3 RDW 17.1 H Plt Count 221 MPV 10.6 Sodium 144 Potassium 4.4 Chloride 110 H Carbon Dioxide 29 Anion Gap 9 L BUN 26 H Creatinine 1.1 Est GFR ( Amer) 59 Est GFR (Non-Af Amer) 49 POC Glucose (mg/dL) Random Glucose 71 Hemoglobin A1c 13.0 H Calcium 9.4 Total Bilirubin 0.3 AST 15 ALT 23 Alkaline Phosphatase 82 Total Protein 5.6 L Albumin 2.9 L Globulin 2.6 Albumin/Globulin Ratio 1.1 Triglycerides 123 Cholesterol 157 LDL Cholesterol Direct 99 HDL Cholesterol 33 Amylase 48 Lipase 85 Thyroxine (T4) TSH 3rd Generation 09/30/17 09/30/17 09/30/17 06:00 07:34 11:36 WBC RBC Hgb Hct MCV MCH MCHC RDW Plt Count MPV Sodium Potassium Chloride Carbon Dioxide Anion Gap BUN Creatinine Est GFR ( Amer) Est GFR (Non-Af Amer) POC Glucose (mg/dL) 83 184 H Random Glucose Hemoglobin A1c Calcium Total Bilirubin AST ALT Alkaline Phosphatase Total Protein Albumin Globulin Albumin/Globulin Ratio Triglycerides Cholesterol LDL Cholesterol Direct HDL Cholesterol Amylase Lipase Thyroxine (T4) 6.3 TSH 3rd Generation 3.25 09/30/17 09/30/17 16:34 21:04 WBC RBC Hgb Hct MCV MCH MCHC RDW Plt Count MPV Sodium Potassium Chloride Carbon Dioxide Anion Gap BUN Creatinine Est GFR ( Amer) Est GFR (Non-Af Amer) POC Glucose (mg/dL) 152 H 135 H Random Glucose Hemoglobin A1c Calcium Total Bilirubin AST ALT Alkaline Phosphatase Total Protein Albumin Globulin Albumin/Globulin Ratio Triglycerides Cholesterol LDL Cholesterol Direct HDL Cholesterol Amylase Lipase Thyroxine (T4) TSH 3rd Generation Attending/Attestation - Attestation I have personally seen and examined this patient.: Yes I have fully participated in the care of the patient.: Yes I have reviewed all pertinent clinical information: Yes Notes (Text): This is an addendum to GI consult report dictated by Miranda Hubbard APN.The patient was seen and examined earlier. Medical records, lab studies, imagings were reviewed. Last 24 hours events reviewed. Agreed with the above treatment plan as outlined in Miranda Hubbard APN's notes the with the addition of the following Seen and discussed with the patient earlier Feels slightly better lying sutures of the right upper quadrant pain Symptomatic gallstones History of peptic ulcer disease last endoscopy showed no active ulcers History of gastroparesis Imaging studies reviewed Plan for OR tomorrow for cholecystectomy Patient off aq10/01/17 22:13
--- NOTE | 2017-09-30 13:02 | CP.PCM.PN ---
Subjective - Date & Time of Evaluation Date of Evaluation: 09/30/17 Time of Evaluation: 11:00 - Subjective Subjective: Patient seen and examined this morning. Reports abdominal pain has improved but reports some nausea, denies vomiting. Objective - Vital Signs/Intake and Output Vital Signs (last 24 hours): Temp Pulse Resp BP Pulse Ox 98.0 F 55 L 20 152/61 H 96 09/30/17 06:00 09/30/17 10:00 09/30/17 06:00 09/30/17 09:08 09/30/17 06:00 Intake and Output: 09/30/17 09/30/17 06:59 18:59 Intake Total 1360 Balance 1360 - Medications Medications: Current Medications Alprazolam (Xanax) 0.25 mg PO HS PRN; Protocol PRN Reason: Anxiety Stop: 10/06/17 21:39 Alprazolam (Xanax) 0.25 mg PO HS PRN PRN Reason: Insomnia Stop: 10/06/17 21:39 Anastrozole (Arimidex 1 Mg Tab) 1 mg PO HS NIEVES Atorvastatin Calcium (Lipitor) 20 mg PO DIN [facility] Enoxaparin Sodium (Lovenox) 85 mg SC Q12H [facility] PRN Reason: Protocol Last Admin: 09/30/17 09:15 Dose: 85 mg Folic Acid (Folic Acid) 1 mg PO DAILY [facility] Last Admin: 09/30/17 09:10 Dose: 1 mg Sodium Chloride (Sodium Chloride 0.9%) 1,000 mls @ 100 mls/hr IV .Q10H [facility] Last Admin: 09/30/17 06:15 Dose: 100 mls/hr Insulin Human Lispro (Humalog Low) 0 units SC ACHS [facility] PRN Reason: Protocol Last Admin: 09/30/17 12:02 Dose: Not Given Losartan Potassium (Cozaar) 50 mg PO DAILY [facility] Last Admin: 09/30/17 09:08 Dose: 50 mg Metoprolol Succinate (Toprol Xl) 12.5 mg PO QAM [facility] Last Admin: 09/30/17 09:11 Dose: Not Given Morphine Sulfate (Morphine) 2 mg IVP Q4H PRN PRN Reason: Pain, severe (8-10) Pantoprazole Sodium (Protonix Ec Tab) 40 mg PO 0600 [facility] Last Admin: 09/30/17 06:06 Dose: 40 mg Ursodiol (Actigall) 300 mg PO DAILY [facility] Last Admin: 09/30/17 09:08 Dose: 300 mg - Labs Labs: 09/30/17 06:00 09/30/17 06:00 PT 13.2 SECONDS (9.4-12.5) H 09/29/17 18:07 INR 1.15 (0.93-1.08) H 09/29/17 18:07 APTT 27.4 Seconds (25.1-36.5) 09/29/17 18:07 - Constitutional Appears: No Acute Distress - Head Exam Head Exam: NORMOCEPHALIC - Eye Exam Eye Exam: Normal appearance - ENT Exam ENT Exam: Mucous Membranes Moist - Respiratory Exam Respiratory Exam: NORMAL BREATHING PATTERN - Cardiovascular Exam Cardiovascular Exam: +S1, +S2 - GI/Abdominal Exam GI & Abdominal Exam: Soft, Tenderness Additional comments: RUQ tenderness - Neurological Exam Neurological Exam: Alert, Awake, Oriented x3 - Psychiatric Exam Psychiatric exam: Normal Mood - Skin Skin Exam: Dry, Intact, Warm Assessment and Plan - Assessment and Plan (Free Text) Assessment: 72F w. biliary colic Plan: -Low fat diet -Hold lovenox dose in AM -OR on for laparoscopic cholecystectomy possible open -Patient needs medical and cardiac clearance -d/w attending -Michael FINCHY2
--- NOTE | 2017-09-30 15:22 | CP.PCM.PN ---
Subjective - Date & Time of Evaluation Date of Evaluation: 09/30/17 Time of Evaluation: 09:00 - Subjective Subjective: Heme-onc Progress Note, Lalo Chapman DO, PGY-2 IM This is a 72 yo H with PMH of CAD, DM, HTN, a-fib, anxiety, Breast CA, varicose veins, and asthma who presented to [facility] with worsening abdominal pain, 6 months duration, but acutely worsening in last 3-4 weeks. Patient seen and examined at bedside, eating liquid diet at time of exam and tolerating well. Reports that pain WAS exacerbated by some foods, but is able to tolerate soup broth and yogurt without issue. No acute issues reported overnight, and denies any acute episodes of emesis or diarrhea since admission. Pain currently well controlled. Objective - Vital Signs/Intake and Output Vital Signs (last 24 hours): Temp Pulse Resp BP Pulse Ox 98.0 F 56 L 20 152/61 H 96 09/30/17 06:00 09/30/17 14:00 09/30/17 06:00 09/30/17 09:08 09/30/17 06:00 Intake and Output: 09/30/17 09/30/17 06:59 18:59 Intake Total 1360 Balance 1360 - Medications Medications: Current Medications Alprazolam (Xanax) 0.25 mg PO HS PRN; Protocol PRN Reason: Anxiety Stop: 10/06/17 21:39 Alprazolam (Xanax) 0.25 mg PO HS PRN PRN Reason: Insomnia Stop: 10/06/17 21:39 Anastrozole (Arimidex 1 Mg Tab) 1 mg PO HS [facility] Atorvastatin Calcium (Lipitor) 20 mg PO DIN [facility] Enoxaparin Sodium (Lovenox) 85 mg SC Q12H [facility] PRN Reason: Protocol Last Admin: 09/30/17 09:15 Dose: 85 mg Folic Acid (Folic Acid) 1 mg PO DAILY [facility] Last Admin: 09/30/17 09:10 Dose: 1 mg Sodium Chloride (Sodium Chloride 0.9%) 1,000 mls @ 100 mls/hr IV .Q10H [facility] Last Admin: 09/30/17 06:15 Dose: 100 mls/hr Insulin Human Lispro (Humalog Low) 0 units SC ACHS [facility] PRN Reason: Protocol Last Admin: 09/30/17 12:02 Dose: Not Given Losartan Potassium (Cozaar) 50 mg PO DAILY [facility] Last Admin: 09/30/17 09:08 Dose: 50 mg Metoprolol Succinate (Toprol Xl) 12.5 mg PO QAM [facility] Last Admin: 09/30/17 09:11 Dose: Not Given Morphine Sulfate (Morphine) 2 mg IVP Q4H PRN PRN Reason: Pain, severe (8-10) Pantoprazole Sodium (Protonix Ec Tab) 40 mg PO 0600 [facility] Last Admin: 09/30/17 06:06 Dose: 40 mg Ursodiol (Actigall) 300 mg PO DAILY [facility] Last Admin: 09/30/17 09:08 Dose: 300 mg - Labs Labs: 09/30/17 06:00 09/30/17 06:00 PT 13.2 SECONDS (9.4-12.5) H 09/29/17 18:07 INR 1.15 (0.93-1.08) H 09/29/17 18:07 APTT 27.4 Seconds (25.1-36.5) 09/29/17 18:07 - Constitutional Appears: Non-toxic, No Acute Distress - Head Exam Head Exam: ATRAUMATIC, NORMAL INSPECTION, NORMOCEPHALIC - Eye Exam Eye Exam: EOMI, Normal appearance. absent: Conjunctival injection, Scleral icterus Pupil Exam: absent: Irregular, Unequal - ENT Exam ENT Exam: Mucous Membranes Moist, Normal Exam - Neck Exam Neck Exam: Full ROM, Normal Inspection - Respiratory Exam Respiratory Exam: Clear to Ausculation Bilateral, NORMAL BREATHING PATTERN. absent: Accessory Muscle Use, Chest Wall Tenderness, Decreased Breath Sounds, Rales, Rhonchi, Wheezes - Cardiovascular Exam Cardiovascular Exam: Irregular Rhythm, +S1, +S2. absent: Bradycardia, Tachycardia, REGULAR RHYTHM, JVD, RRR, +S4 - GI/Abdominal Exam GI & Abdominal Exam: Soft, Tenderness (mild RUQ and epigastric tenderness), Normal Bowel Sounds. absent: Distended, Firm, Rigid, Diminished Bowel Sounds, Hypoactive Bowel Sounds - Extremities Exam Extremities Exam: Normal Capillary Refill, Normal Inspection. absent: Calf Tenderness, Pedal Edema (wearing knee high stockings), Tenderness - Neurological Exam Neurological Exam: Alert, Awake, Oriented x3 - Psychiatric Exam Psychiatric exam: Normal Affect, Normal Mood - Skin Skin Exam: Dry, Intact, Normal Color, Warm Assessment and Plan - Assessment and Plan (Free Text) Assessment: This is a 72 yo H with PMH of CAD, DM, HTN, a-fib, anxiety, Breast CA, varicose veins, and asthma who presented to [facility] with worsening abdominal pain, 6 months duration, but acutely worsening in last 3-4 weeks. She was admitted for persistent biliary colic, pending cholecystectomy. Plan: Acute on chronic billiary colic vs cholecystitis Hx Breast Ca DM with elevated BG A1c 13 Afib on AC Asthma -Switched from home Eliquis to Lovenox, AM dose to be held tmr, as per Surgery -Pending OR for cholecystectomy tmr as per Surgery -Cardio consulted for cardiac clearance, appreciate all recs -GI consulted, appreciate all recs -US obtained, notable for increased GB sludge w/o wall thickening cholelithiasis , possibly fatty liver; similar to prior US in Jul 2017 -Endo following, appreciate all recs; A1c 13, so DM is still poorly controlled, pt reports compliance with regimen, will need further adjustment; avoid oral hypoglycemics while inpt, continue sliding scale -Pending CXR, repeat EKG, and AM coags for medical clearance Patient reviewed and discussed with attending, Dr. Zabala.
[2017-09-30] MEDS: Morphine 4 mg/ml ISec IVP PRN (16:29)
--- NOTE | 2017-09-30 18:30 | PN ---
DATE: ENDOCRINOLOGY FOLLOWUP NOTE LOCATION: Room 361. SUBJECTIVE: This is a 72-year-old female with recent uncontrolled type 2 insulin-requiring diabetes, presenting here with acute biliary colic from underlying cholelithiasis and is currently n.p.o., undergoing GI workup and management at this time and is also being followed closely for metabolic management. Her glycemic levels are fluctuating but much improved at this time as she really has no oral intake for now with glucose levels ranging from 83-184 mg/dL. It was 126 at bedtime last night. Her latest chemistry showed a BUN of 26, sodium 144, potassium 4.4, chloride 110, CO2 of 29, glucose 71, and creatinine 1.1. Her thyroid study showed a T4 of 6.3 with a TSH of 3.25. As mentioned above, her A1c is extremely elevated at 13% indicative of very poor and suboptimal metabolic control of her diabetic condition even with an outpatient combination of insulin therapy and oral hypoglycemic drug therapy as given. ASSESSMENT: This is a 72-year-old female with uncontrolled and decompensated type 2 insulin-requiring diabetes, presenting here with acute biliary colic from underlying cholelithiasis and is now being followed closely for metabolic management. She also has diabetic microvascular complications of retinopathy, polyneuropathy, and nephropathy with overt proteinuria as noted. Moreover, she has diabetic macrovascular complications of coronary artery disease, peripheral arterial disease, and vasculopathy. PLAN OF MANAGEMENT: We will continue the low-dose correction scale using Humalog insulin as given as the patient is still n.p.o. at this time and as her diet is advanced, then we can switch her over to a more physiologic basal and bolus insulin drug combination as indicated. We will obtain serial chemistries and supplement accordingly as needed. We will also continue the low-dose correction scale using Humalog insulin as given. We will titrate incrementally as indicated. We will follow. Radha Luis MD
--- NOTE | 2017-09-30 21:50 | CON ---
DATE: SERVICE: Cardiology. REASON FOR THE CONSULTATION: Cardiac evaluation, preop evaluation for possible cholecystectomy, on Eliquis for paroxysmal atrial fibrillation and hypercoagulable state. BRIEF CLINICAL HISTORY: This is a 72-year-old female with past medical history significant for hypercoagulable state; paroxysmal atrial fibrillation; status post cardiac catheterization, normal coronary; who has abdominal pain, found to be acute cholecystitis requiring OR for cholecystectomy. Denies any chest pain, shortness of breath, any palpitation. Patient is on Eliquis. PAST MEDICAL HISTORY: Past history significant for breast CA; history of hypercoagulable state; history of DVT; history of PE; history of multiple catheterization, negative; history of paroxysmal atrial fibrillation, was on Coumadin, now patient is on Eliquis. PREVIOUS CARDIAC WORKUP: Patient had multiple catheterizations done by Dr. Garg's group, Dr. Young and Dr. Gutierrez. Last catheterization done by here is preserved LV function and normal coronaries. History of paroxysmal atrial fibrillation, history of DVT, history of PE; on Coumadin, now patient is on Eliquis; being followed by Dr. Zabala. Last echo dated 12/26/2014 shows normal LV function, aortic valve sclerosis, doubt stenosis, dilated left atrium. Last catheterization on 10/18/2015 that revealed essentially normal coronary artery, essentially normal, diffuse LAD distal disease, 50% stenosis, preserved LV function ejection fraction of 65%, EDP was 20 to 25. CURRENT MEDICATIONS: Patient is taking Xanax, Tylenol, Eliquis. Before, the patient was on Coumadin for DVT/PE and paroxysmal atrial fibrillation. Metoprolol tartrate 12.5 mg, Crestor, and Ellipta. PHYSICAL EXAMINATION: VITAL SIGNS: As follows: Temperature afebrile, heart rate 60, blood pressure 130/80. HEENT: PERRLA. Extraocular muscles intact. NECK: Supple. No carotid bruit. No thyromegaly. CHEST: Clear to auscultation. HEART: S1, S2 regular. ABDOMEN: Soft. EXTREMITIES: Clubbing, cyanosis negative. LABORATORY DATA: EKG shows normal sinus and no acute ST-T changes noted. Blood workup as follows: WBC 5.4, hemoglobin , hematocrit 34.7, platelet count 221. Chemistry shows sodium 140, potassium 4.4, chloride 110, carbon dioxide 29, anion gap of 9, BUN 26, creatinine 1.1. Abdominal ultrasound done that shows increased echogenicity of gallbladder consistent with sludge. There is no significant wall thickness. IMPRESSION: Possible acute cholecystitis requiring OR as per patient; history of deep venous thrombosis and pulmonary embolism; history of paroxysmal atrial fibrillation, on anticoagulation, was on Eliquis; status post cardiac catheterization, normal coronaries, paroxysmal atrial fibrillation; history of breast cancer; multiple medical problems. RECOMMENDATION: Patient is cleared to go for OR from cardiac point of view. No contraindication and no evidence of , no evidence angina. No evidence of arrhythmia. We will hold for 48 hours, Eliquis, before the patient goes to the OR. Interim, continue measures to control her blood pressure. Continue low-dose beta jef if heart rate is tolerated. We will follow with you. No absolute contraindication for surgery. Thank you, Dr. Zabala, for providing us the opportunity in taking care of Linn Zambrano. Patient is cleared to go for surgery with moderate risk because of underlying comorbidity. Emerald Roque MD
[2017-10-01] MEDS: Pantoprazole 40 mg EC Tab PO SCH (05:33)
[2017-10-01 06:31] LABS: HEMOGLOBIN 11.6 g/dL (12.0-16.0); MEAN CELL VOLUME 82.3 fl (80.0-105.0); MEAN CORPUSCULAR HEMOGLOBIN 25.7 pg (25.0-35.0); MEAN CORPUSCULAR HGB CONC 31.2 g/dl (31.0-37.0); MEAN PLATELET VOLUME 10.5 fl (7.0-11.0); RBC 4.52 10^6/uL (3.5-6.1); RED CELL DISTRIBUTION WIDTH 16.9 % (11.5-14.5); WHITE BLOOD COUNT 4.1 10^3/ul (4.5-11.0)
[2017-10-01 07:02] LABS: INR 1.12 (0.93-1.08); PROTHROMBIN TIME 12.9 SECONDS (9.4-12.5)
[2017-10-01 07:08] LABS: ALB/GLOB RATIO 1.1 (1.1-1.8); ALBUMIN 3.2 g/dL (3.0-4.8); ALT/SGPT 19 U/L (7-56); AST/SGOT 17 U/L (14-36); BLOOD UREA NITROGEN 14 mg/dL (7-21); CALCIUM 9.4 mg/dL (8.4-10.5); GFR AFRICAN-AMERICAN > 60; GFR NON-AFRICAN AMERICAN > 60
[2017-10-01 07:15] LABS: TROPONIN I 0.02 ng/mL
--- NOTE | 2017-10-01 07:21 | CP.PCM.PCO ---
Physician Communication Note - Physician Communication Note Physician Communication Note: Dr. Roque aware of PVCs, pt clear for OR
[2017-10-01] MEDS ORDERED: Propofol 10 mg/ml Inj (20 ML) ONE (07:30)
[2017-10-01] MEDS ORDERED: Midazolam 2 MG/2 ML VIAL ONE (07:30)
[2017-10-01] MEDS ORDERED: Rocuronium 10 mg/ml (5 ml) ONE (07:36)
[2017-10-01] MEDS: Insulin Lispro (humaLOG) LOW Coverage SC SCH ×4 (07:36→21:37)
[2017-10-01] MEDS ORDERED: Etomidate 20 mg/10ml Inj IV ONE (07:36)
[2017-10-01] MEDS ORDERED: Desflurane Inhalation Anesthetic Liq (240 ml) ONE (07:57)
[2017-10-01] MEDS ORDERED: Bupivacaine 0.25% Inj(30mL) ONE (08:02)
[2017-10-01] MEDS ORDERED: Iohexol 240 (50 ml) ONE (08:02)
[2017-10-01] MEDS ORDERED: CeFAZolin 1 gm in NS 100ml IVPB ONE (08:20)
[2017-10-01] MEDS ORDERED: Iohexol 240 MG/100 ML SOL IJ ONE (09:01)
[2017-10-01] MEDS ORDERED: Bupivacaine 0.25% Inj(30mL) IJ ONE (09:25)
[2017-10-01] MEDS ORDERED: Labetalol 5 mg/ml Inj 20ML ONE (09:25)
[2017-10-01] MEDS ORDERED: Neostigmine Methylsulfate 3mg/3ml Syringe IV ONE (09:25)
--- NOTE | 2017-10-01 09:44 | PCM.SURG1 ---
Surgeon's Initial Post Op Note - Surgeon's Notes Surgeon: Narciso [employer] Monitor: Angela PGY3, John PGY2 Type of Anesthesia: General Endo, Local Pre-Operative Diagnosis: Biliary colic Operative Findings: Gallstones Post-Operative Diagnosis: same Operation Performed: Laparoscopic cholecystectomy Specimen/Specimens Removed: gallbladder Estimated Blood Loss: EBL {In ML}: 10 Blood Products Given: N/A Drains Used: No Drains Post-Op Condition: Good Date of Surgery/Procedure: 10/01/17 Time of Surgery/Procedure: 09:44
[2017-10-01] MEDS ORDERED: Labetalol 5 mg/ml Inj 20ML IV ONE (09:57)
[2017-10-01] MEDS ORDERED: Lactated Ringer's 1,000 ML IV SCH (10:00)
--- NOTE | 2017-10-01 10:09 | RAD ---
PROCEDURE: Fluoroscopy up to 1 hour HISTORY: ATTEMPTED CHOLANGIOGRAM COMPARISON: TECHNIQUE: Fluoroscopy was provided in the operating room. 41.1 seconds of fluoro time were use. Cumulative dose 11.5 mGy. Two images were submitted FINDINGS: There is no visualization of the common duct. There is some extravasation IMPRESSION: As above
[2017-10-01] MEDS: Morphine 4 mg/ml ISec IVP PRN ×3 (11:27→21:53)
[2017-10-01] MEDS: Metoprolol Succinate 50 mg XL Tab PO SCH (11:28)
--- NOTE | 2017-10-01 11:34 | CP.PCM.PN ---
Subjective - Date & Time of Evaluation Date of Evaluation: 10/01/17 Time of Evaluation: 11:28 - Subjective Subjective: Heme-onc Progress Note, Lalo Chapman DO, PGY-2 IM This is a 72 yo H with PMH of CAD, DM, HTN, a-fib, anxiety, Breast CA, varicose veins, and asthma who presented to [facility] [place] with worsening abdominal pain, 6 months duration, but acutely worsening in last 3-4 weeks. Patient seen and examined at bedside, s/p lap-liza today. Somnolent, likely from anesthesia +/- pain control, but answering questions appropriately, denies acute pain at time of exam. No acute events reported overnight. Objective - Vital Signs/Intake and Output Vital Signs (last 24 hours): Temp Pulse Resp BP Pulse Ox 98 F 110 H 14 134/54 L 98 10/01/17 10:47 10/01/17 10:47 10/01/17 10:47 10/01/17 10:47 10/01/17 10:47 Intake and Output: 10/01/17 10/01/17 06:59 18:59 Intake Total 1940 Output Total 600 Balance 1340 - Medications Medications: Current Medications Alprazolam (Xanax) 0.25 mg PO HS PRN; Protocol PRN Reason: Anxiety Stop: 10/06/17 21:39 Alprazolam (Xanax) 0.25 mg PO HS PRN PRN Reason: Insomnia Stop: 10/06/17 21:39 Anastrozole (Arimidex 1 Mg Tab) 1 mg PO HS NIEVES Last Admin: 09/30/17 22:15 Dose: 1 mg Atorvastatin Calcium (Lipitor) 20 mg PO DIN [facility] Last Admin: 09/30/17 16:30 Dose: Not Given Enoxaparin Sodium (Lovenox) 85 mg SC Q12H NIEVES PRN Reason: Protocol Last Admin: 09/30/17 22:15 Dose: 85 mg Fentanyl (Fentanyl) 25 mcg IV Q5M PRN PRN Reason: Pain, moderate (4-7) Last Admin: 10/01/17 10:32 Dose: 25 mcg Folic Acid (Folic Acid) 1 mg PO DAILY NIEVES Last Admin: 09/30/17 09:10 Dose: 1 mg Hydralazine HCl (Apresoline) 10 mg IVP Q6 PRN PRN Reason: for SBP>170 Last Admin: 10/01/17 02:41 Dose: 10 mg Hydralazine HCl (Apresoline) 5 mg IVP ONCE PRN PRN Reason: Systolic Blood Pressure Sodium Chloride (Sodium Chloride 0.9%) 1,000 mls @ 100 mls/hr IV .Q10H [facility] Last Admin: 09/30/17 06:15 Dose: 100 mls/hr Lactated Ringer's (Lactated Ringer's) 1,000 mls @ 75 mls/hr IV .[id number] [facility] Stop: 10/01/17 12:01 Insulin Human Lispro (Humalog Low) 0 units SC ACHS [facility] PRN Reason: Protocol Last Admin: 10/01/17 07:36 Dose: Not Given Ketorolac Tromethamine (Toradol) 15 mg IVP Q6 PRN PRN Reason: Pain, Mild (1-3) Losartan Potassium (Cozaar) 100 mg PO DAILY [facility] Metoclopramide HCl (Reglan) 10 mg IV ONCE PRN PRN Reason: Nausea/Vomiting Metoprolol Succinate (Toprol Xl) 12.5 mg PO QAM [facility] Last Admin: 09/30/17 09:11 Dose: Not Given Morphine Sulfate (Morphine) 2 mg IVP Q4H PRN PRN Reason: Pain, severe (8-10) Last Admin: 09/30/17 16:29 Dose: 2 mg Pantoprazole Sodium (Protonix Ec Tab) 40 mg PO 0600 [facility] Last Admin: 10/01/17 05:33 Dose: Not Given Tramadol HCl (Ultram) 50 mg PO Q6 PRN PRN Reason: Pain, moderate (4-7) Ursodiol (Actigall) 300 mg PO DAILY [facility] Last Admin: 09/30/17 09:08 Dose: 300 mg - Labs Labs: 10/01/17 05:30 10/01/17 05:30 PT 12.9 SECONDS (9.4-12.5) H 10/01/17 05:30 INR 1.12 (0.93-1.08) H 10/01/17 05:30 APTT 34.0 Seconds (25.1-36.5) 10/01/17 05:30 - Additional Findings Additional findings: - Constitutional Appears: Non-toxic, No Acute Distress, lethargic - Head Exam Head Exam: ATRAUMATIC, NORMAL INSPECTION, NORMOCEPHALIC - Eye Exam Eye Exam: EOMI, Normal appearance. absent: Conjunctival injection, Scleral icterus Pupil Exam: absent: Irregular, Unequal - ENT Exam ENT Exam: Mucous Membranes Moist, Normal Exam - Neck Exam Neck Exam: Full ROM, Normal Inspection - Respiratory Exam Respiratory Exam: Clear to Ausculation Bilateral, NORMAL BREATHING PATTERN. absent: Accessory Muscle Use, Chest Wall Tenderness, Decreased Breath Sounds, Rales, Rhonchi, Wheezes - Cardiovascular Exam Cardiovascular Exam: Irregular Rhythm, +S1, +S2. absent: Bradycardia, Tachycardia, REGULAR RHYTHM, JVD, RRR, +S4 - GI/Abdominal Exam GI & Abdominal Exam: Absent bowel sounds (hours s/p surgery), bandaging over laprascopic port sites. absent: Distended, Firm, Rigid, Diminished Bowel Sounds , Hypoactive Bowel Sounds Did not palpate due to s/p surgical procedure - Extremities Exam Extremities Exam: Normal Capillary Refill, Normal Inspection. absent: Calf Tenderness, Pedal Edema (wearing knee high stockings), Tenderness - Neurological Exam Neurological Exam: lethargic but arousable, oriented to self/location/year, answering questions appropriately - Psychiatric Exam Psychiatric exam: Normal Affect, Normal Mood - Skin Skin Exam: Dry, Intact, Normal Color, Warm Assessment and Plan - Assessment and Plan (Free Text) Assessment: This is a 72 yo H with PMH of CAD, DM, HTN, a-fib, anxiety, Breast CA, varicose veins, and asthma who presented to [facility] [place] with worsening abdominal pain, 6 months duration, but acutely worsening in last 3-4 weeks. She was admitted for persistent biliary colic, pending cholecystectomy. Plan: Acute on chronic billiary colic vs cholecystitis Hx Breast Ca DM with elevated BG A1c 13 Afib on AC Asthma -Switched from home Eliquis to Lovenox, AM dose held today for surgery -s/p lap lzia this AM, uncomplicated as per surgery -cleared by cardio and med teams -GI consulted, appreciate all recs -US obtained, notable for increased GB sludge w/o wall thickening cholelithiasis , possibly fatty liver; similar to prior US in Jul 2017 -Endo following, appreciate all recs; A1c 13, so DM is still poorly controlled, pt reports compliance with regimen, will need further adjustment; avoid oral hypoglycemics while inpt, continue sliding scale Patient reviewed and discussed with attending, Dr. Zabala.
[2017-10-01] MEDS: Sodium Chloride 0.9% 1,000 ML IV SCH ×2 (15:28→23:48)
[2017-10-01] MEDS ORDERED: Insulin Lispro 1 UNITS/0.01 ML SC SCH (16:30)
--- NOTE | 2017-10-01 17:30 | PN ---
DATE: ENDOCRINOLOGY FOLLOWUP NOTE LOCATION: Room 361. SUBJECTIVE: This is a 72-year-old female with recent uncontrolled type 2 insulin-requiring diabetes, presenting here with acute biliary colic and underwent a laparoscopic cholecystectomy today as noted. She still remains hypersomnolent and slightly sedated with variable oral intake as per the nursing staff. Her glycemic levels are fluctuating, but improved and the latest glucose levels have ranged from 174-249 mg/dL. Her latest chemistry showed a BUN of 14, sodium 141, potassium 4.2, chloride 108, CO2 of 26, glucose 138, and creatinine 0.8. So, at this time, we will start her back on a much, much smaller basal and bolus insulin regimen, which is more physiologic in terms of her meal time insulin requirements thereof. We will start her with Humalog given as 6 units subcu t.i.d. before meals to start at dinner time today as ordered. We will also modify the coverage scale to obviate hypoglycemia and detailed orders have been given. We will also add basal insulin given at bedtime tonight with Levemir at 14 units subcu at bedtime daily as ordered. We will continue the IV hydration as given and obtain serial chemistries and supplement accordingly as needed. We will follow. Radha Luis MD
[2017-10-01] MEDS ORDERED: LINZESS 145 MG PO SCH ×2 (18:00→20:01)
--- NOTE | 2017-10-01 18:14 | CARD ---
APPROVED REPORT EKG Measurement Heart [id number] <Conclusion> Normal sinus rhythm Normal ECG
--- NOTE | 2017-10-01 18:29 | CARD ---
APPROVED REPORT EKG Measurement Heart [id number] LA 132P-11 [id number] <Conclusion> Normal sinus rhythm Normal ECG
--- NOTE | 2017-10-01 18:30 | PN ---
DATE: 10/01/2017 LOCATION: Patient is in room 361, bed 1. REASON FOR CONSULTATION: Cardiac evaluation, cardiac risk stratification with possible cholecystectomy, paroxysmal atrial fibrillation, hypercoagulable state, patient on Eliquis. BRIEF CLINICAL HISTORY: Patient was admitted with abdominal pain, found to have acute cholecystitis. Patient needs cholecystectomy and patient is going for surgery this morning. Denies any chest pain, shortness of breath, or palpitation. PREVIOUS CARDIAC WORKUP: The patient had multiple catheterization done by Dr. Garg's group, Dr. Young, and Dr. Gutierrez. Last catheterization on 08/19/2015, that showed essentially normal coronaries, diffuse LAD distal disease around 50% stenosis, preserved LV function, ejection fraction of 65%, EDP was 20 to 25. Patient also has history of DVT and PE in the past. Patient denies any cardiac symptom at present. Denies chest pain, shortness of breath, or palpitation. PHYSICAL EXAMINATION: VITAL SIGNS: Blood pressure of 117/56, respirations 14, pulse is 76, temperature 98. HEENT: Head normocephalic. Eyes: Pupils normal. Conjunctivae normal. Nose and throat normal. NECK: JVP low. Carotid are equal. THORAX: AP diameter normal. LUNGS: Clear. CARDIOVASCULAR: S1 and S2. ABDOMEN: Soft. Bowel sounds normal. EXTREMITIES: No clubbing. No cyanosis. LABORATORY DATA: WBC 4.1, hemoglobin 11.6, hematocrit 37.2, and platelets 217. Sodium 141, potassium 4.2. BUN 14, creatinine 0.8. Random sugar 249. Calcium, phosphorus, magnesium, bilirubin, ALT, AST, troponin, total protein, and albumin were normal. DIAGNOSES: Acute cholecystitis, patient needing cholecystectomy; history of paroxysmal atrial fibrillation; history of deep vein thrombosis in the legs and pulmonary embolism, on Eliquis; previously, cardiac cath had been normal. PLAN: Clinically, patient's cardiac status from cardiac point of view, patient can go for surgery at moderate risk. We will continue low-dose beta-jef. We will continue present therapy. Patient is on losartan 100 mg daily, atorvastatin 20 daily, Lovenox 85 mg subq every 12 hours, and metoprolol succinate 12.5 mg p.o. daily. We will follow. Emerald Beverly MD [facility] # [id number]
--- NOTE | 2017-10-01 19:44 | OP ---
PROCEDURE DATE: 10/01/2017 PREOPERATIVE DIAGNOSES: Chronic cholecystitis, cholelithiasis. POSTOPERATIVE DIAGNOSES: Chronic cholecystitis, cholelithiasis. PROCEDURE PERFORMED: Laparoscopic cholecystectomy with intraoperative cholangiogram. SURGEON: Tl Stuart MD. WASHCLOTH FOLDER: Dr. Hernandez and Dr. Lopez. ANESTHESIOLOGIST: Dr. Luciano. ANESTHESIA: General endotracheal anesthesia. ESTIMATED BLOOD LOSS: Minimal. SPECIMEN: Gallbladder with stones. DESCRIPTION OF PROCEDURE: Patient is a 72-year-old female with morbid obesity who was complaining of recurrent attacks of right upper quadrant abdominal pain and an ultrasound showing presence of gallstones and this was suspected for chronic and acute cholecystitis. Patient was admitted to the hospital two days ago with increasing right upper quadrant abdominal pain and was optimized and now brought into the operating room for laparoscopic cholecystectomy. First, a standard time-out procedure took place and everybody in the room agreed as to the patient's identity, diagnoses, and procedure to be performed. A discussion of the operative plan as well as postoperative plan were introduced to all the members of the team. First, two towel clips were used in order to elevate the abdominal wall and the area was infiltrated with lidocaine mixed with Marcaine and a small incision was made just superior to the umbilicus where the numbing was done in order to access the abdominal cavity. A Veress needle was inserted through that incision and pneumoperitoneum was obtained. Next, a 12-mm trocar was inserted through that incision and careful evaluation of the abdominal cavity with the scope revealed presence of distended gallbladder with mild edema. There was no other abnormalities noted. A second 5-mm trocar was inserted in the subxiphoid position and carefully dissection began. The infundibulum of the gallbladder was elevated and cystic duct was dissected out cleanly, and so was the cystic artery. Once both were visualized, we then clipped the cystic duct proximally, made a small incision on the side of it, and inserted a cholangiocatheter into it. An attempt to make cholangiogram was done; however, due to the tightness of the small cystic duct, we were unable to fully inject into the common bile duct and, therefore, decided to abort the procedure after multiple attempts. Cystic duct was now clipped distally and transected. The cystic artery was also clipped and transected. The gallbladder was carefully taken off of its liver bed using electrocautery and once detached, it was placed in the EndoCatch bag. During the dissection, there was a small hole made in the gallbladder through which bile was suctioned out and some of the stone which came out were also collected with dissection. The gallbladder was now brought out with an EndoCatch bag and sent as a specimen. The abdominal cavity was now copiously irrigated. All the irrigant fluid was suctioned out and pneumoperitoneum was released. Trocars were removed after adequate hemostasis was assured and the fascia was closed using 0-Vicryl for the fascia, 3-0 Vicryl for the subcutaneous tissue, and 4-0 Monocryl for the skin. A sterile Dermabond dressing was applied to the wound. Patient tolerated the procedure well and there were no complications. Patient was awakened, extubated, and transferred to the recovery room for further observation. Tl Stuart MD
[2017-10-01] MEDS ORDERED: ROSUVASTATIN 5 MG PO SCH (22:00)
[2017-10-01] MEDS ORDERED: Insulin Detemir 100 units/ml Vial (Levemir) SC SCH (22:00)
[2017-10-02] MEDS: Pantoprazole 40 mg EC Tab PO SCH (05:03)
[2017-10-02] MEDS: Morphine 4 mg/ml ISec IVP PRN ×2 (05:04→11:55)
[2017-10-02 07:20] LABS: BASO # 0.01 K/mm3 (0.0-2.0); BASO % 0.2 % (0.0-3.0); EOS # 0.3 (0.0-0.7); EOS % 5.2 % (1.5-5.0); GRAN # 4.71 (1.4-6.5); GRAN % 72.6 % (50.0-68.0); HEMOGLOBIN 10.9 g/dL (12.0-16.0); LYMPH # 0.8 (1.2-3.4); LYMPH % 12.8 % (22.0-35.0); MEAN CELL VOLUME 83.3 fl (80.0-105.0); MEAN CORPUSCULAR HEMOGLOBIN 25.6 pg (25.0-35.0); MEAN CORPUSCULAR HGB CONC 30.8 g/dl (31.0-37.0); MEAN PLATELET VOLUME 9.7 fl (7.0-11.0); MONO # 0.6 (0.1-0.6); MONO % 9.2 % (1.0-6.0); RBC 4.25 10^6/uL (3.5-6.1); RED CELL DISTRIBUTION WIDTH 17.2 % (11.5-14.5); WHITE BLOOD COUNT 6.5 10^3/ul (4.5-11.0)
[2017-10-02 07:23] VITALS: BP 151/62; RESP 20; TEMP 98.9; O2SAT 99
[2017-10-02] MEDS: Insulin Lispro (humaLOG) LOW Coverage SC SCH ×2 (07:30→11:41)
[2017-10-02] MEDS: Insulin Lispro 1 UNITS/0.01 ML SC SCH ×2 (07:35→11:55)
[2017-10-02 08:12] LABS: ALB/GLOB RATIO 1.2 (1.1-1.8); ALBUMIN 3.1 g/dL (3.0-4.8); ALT/SGPT 52 U/L (7-56); AST/SGOT 50 U/L (14-36); CALCIUM 9.2 mg/dL (8.4-10.5)
--- NOTE | 2017-10-02 08:22 | CP.PCM.PN ---
Subjective - Date & Time of Evaluation Date of Evaluation: 10/02/17 Time of Evaluation: 08:06 - Subjective Subjective: Surgery: Dr. Le covering for Dr. Stuart Pt seen and examined. Resting comfortably in bed. Mild mayank-incisional pain. Decreased appetite but tolerating diet. No N/V. No BM. Objective - Vital Signs/Intake and Output Vital Signs (last 24 hours): Temp Pulse Resp BP Pulse Ox 98.9 F 67 20 151/62 H 99 10/02/17 07:20 10/02/17 07:20 10/02/17 07:20 10/02/17 07:20 10/02/17 07:20 Intake and Output: 10/02/17 10/02/17 06:59 18:59 Intake Total 720 Balance 720 - Medications Medications: Current Medications Alprazolam (Xanax) 0.25 mg PO TID PRN; Protocol PRN Reason: Anxiety Stop: 10/08/17 14:01 Last Admin: 10/01/17 21:53 Dose: 0.25 mg Anastrozole (Arimidex 1 Mg Tab) 1 mg PO HS [facility] Last Admin: 10/01/17 22:06 Dose: 1 mg Apixaban (Eliquis) 2.5 mg PO BID [facility] PRN Reason: Protocol Enoxaparin Sodium (Lovenox) 85 mg SC Q12H [facility] PRN Reason: Protocol Last Admin: 09/30/17 22:15 Dose: 85 mg Folic Acid (Folic Acid) 1 mg PO DAILY [facility] Last Admin: 10/01/17 11:30 Dose: 1 mg Glycerin (Glycerin Adult Suppository) 1 sup RC ONCE ONE Stop: 10/02/17 08:07 Home Med (Home Med) 1 unit PO QPM [facility] Home Med (Home Med) 1 unit PO HS [facility] Last Admin: 10/01/17 21:52 Dose: 1 unit Hydralazine HCl (Apresoline) 10 mg IVP Q6 PRN PRN Reason: for SBP>170 Last Admin: 10/02/17 05:04 Dose: 10 mg Hydralazine HCl (Apresoline) 5 mg IVP ONCE PRN PRN Reason: Systolic Blood Pressure Sodium Chloride (Sodium Chloride 0.9%) 1,000 mls @ 100 mls/hr IV .Q10H [facility] Last Admin: 10/01/17 23:48 Dose: 100 mls/hr Insulin Detemir (Levemir) 20 unit SC HS [facility] Insulin Human Lispro (Humalog Low) 0 units SC ACHS [facility] PRN Reason: Protocol Last Admin: 10/01/17 21:37 Dose: Not Given Insulin Human Lispro (Humalog) 10 units SC AC [facility] Ketorolac Tromethamine (Toradol) 15 mg IVP Q6 PRN PRN Reason: Pain, Mild (1-3) Losartan Potassium (Cozaar) 100 mg PO DAILY [facility] Last Admin: 10/01/17 11:29 Dose: 100 mg Metoclopramide HCl (Reglan) 10 mg IV ONCE PRN PRN Reason: Nausea/Vomiting Metoprolol Succinate (Toprol Xl) 12.5 mg PO QAM [facility] Last Admin: 10/01/17 11:28 Dose: 12.5 mg Morphine Sulfate (Morphine) 2 mg IVP Q3H PRN PRN Reason: Pain, severe (8-10) Last Admin: 10/02/17 05:04 Dose: 2 mg Ondansetron HCl (Zofran Odt) 4 mg PO Q6H PRN PRN Reason: Nausea/Vomiting Last Admin: 10/01/17 12:17 Dose: 4 mg Pantoprazole Sodium (Protonix Ec Tab) 40 mg PO 0600 [facility] Last Admin: 10/02/17 05:03 Dose: 40 mg Tramadol HCl (Ultram) 50 mg PO Q6 PRN PRN Reason: Pain, moderate (4-7) Last Admin: 10/02/17 07:44 Dose: 50 mg Ursodiol (Actigall) 300 mg PO DAILY [facility] Last Admin: 10/01/17 09:00 Dose: Not Given - Labs Labs: 10/02/17 07:00 10/01/17 05:30 PT 12.9 SECONDS (9.4-12.5) H 10/01/17 05:30 INR 1.12 (0.93-1.08) H 10/01/17 05:30 APTT 34.0 Seconds (25.1-36.5) 10/01/17 05:30 - Constitutional Appears: Non-toxic, No Acute Distress - Head Exam Head Exam: ATRAUMATIC, NORMOCEPHALIC - Eye Exam Eye Exam: EOMI. absent: Scleral icterus - ENT Exam ENT Exam: Mucous Membranes Moist, Normal External Ear Exam - Neck Exam Neck Exam: Full ROM - Respiratory Exam Respiratory Exam: NORMAL BREATHING PATTERN. absent: Accessory Muscle Use, Respiratory Distress - GI/Abdominal Exam GI & Abdominal Exam: Soft, Tenderness (per-incisional ). absent: Distended, Firm, Guarding, Rigid, Rebound - Extremities Exam Extremities Exam: absent: Calf Tenderness, Pedal Edema - Neurological Exam Neurological Exam: Alert, Awake, Oriented x3 - Psychiatric Exam Psychiatric exam: Normal Affect, Normal Mood - Skin Skin Exam: Dry, Normal Color, Warm Assessment and Plan - Assessment and Plan (Free Text) Assessment: 72F w. biliary colic, s/p lap liza POD#1 Plan: -Pt clear for D/C from surgical standpoint -Toradol PO / Tylenol for pain -Diet as tolerated -F/U w. Dr. Stuart in 1-2 weeks -No Heavy lifting >15-20 lbs for 4 weeks -If concerns arise, return to ED -d/w attending Angela PGY3
[2017-10-02 09:08] LABS: BLOOD UREA NITROGEN 16 mg/dL (7-21); GFR AFRICAN-AMERICAN > 60; GFR NON-AFRICAN AMERICAN > 60
[2017-10-02] MEDS: Metoprolol Succinate 50 mg XL Tab PO SCH (09:16)
[2017-10-02] MEDS: Enoxaparin 100 mg Syringe SC SCH (10:59)
--- NOTE | 2017-10-02 14:01 | PN ---
DATE: ENDOCRINOLOGY FOLLOWUP NOTE LOCATION: In room 361. This is a 72-year-old female presenting here with acute biliary colic from underlying cholelithiasis and underwent a laparoscopic cholecystectomy yesterday and is now being followed closely for metabolic management. Her oral intake remains variable, but is improving as noted thereof and her glycemic fluctuations have also improved overnight. The glucose values have ranged from 212-202 mg/dL. The latest chemistry showed a BUN of 16, sodium 137, potassium 4.8, chloride 107, CO2 of 25, glucose 211 and creatinine 0.9. So at this time, we will modify once again her basal and bolus insulin regimen and increase the Humalog to 10 units subcu t.i.d. before meals to start today as ordered. Moreover, we will increase her basal insulin with Levemir to be given as 20 units subcu at bedtime daily to start tonight. We will modify the low-dose correction scale using Humalog insulin to obviate hypoglycemia and detailed orders have been given. We will obtain serial chemistries and supplement accordingly as needed. We will follow. Radha Luis MD
[2017-10-02 16:19] VITALS: PULSE 75
--- NOTE | 2017-10-02 16:20 | CP.PCM.DIS ---
Provider - Provider Date of Admission: 09/29/17 17:30 Attending physician: Paul Phillips MD Primary care physician: Rosmery Quintero MD Consults: Surgery: Narciso Endo: Toby GI: Corey Time Spent in preparation of Discharge (in minutes): 35 Hospital Course - Lab Results Lab Results: Most Recent Lab Values WBC 6.5 10^3/ul (4.5-11.0) D 10/02/17 07:00 RBC 4.25 10^6/uL (3.5-6.1) 10/02/17 07:00 Hgb 10.9 g/dL (12.0-16.0) L 10/02/17 07:00 Hct 35.4 % (36.0-48.0) L 10/02/17 07:00 MCV 83.3 fl (80.0-105.0) 10/02/17 07:00 MCH 25.6 pg (25.0-35.0) 10/02/17 07:00 MCHC 30.8 g/dl (31.0-37.0) L 10/02/17 07:00 RDW 17.2 % (11.5-14.5) H 10/02/17 07:00 Plt Count 182 10^3/uL (120.0-450.0) 10/02/17 07:00 MPV 9.7 fl (7.0-11.0) 10/02/17 07:00 Gran % 72.6 % (50.0-68.0) H 10/02/17 07:00 Lymph % (Auto) 12.8 % (22.0-35.0) L 10/02/17 07:00 [place] % (Auto) 9.2 % (1.0-6.0) H 10/02/17 07:00 Eos % (Auto) 5.2 % (1.5-5.0) H 10/02/17 07:00 Baso % (Auto) 0.2 % (0.0-3.0) 10/02/17 07:00 Gran # 4.71 (1.4-6.5) 10/02/17 07:00 Lymph # (Auto) 0.8 (1.2-3.4) L 10/02/17 07:00 [place] # (Auto) 0.6 (0.1-0.6) 10/02/17 07:00 Eos # (Auto) 0.3 (0.0-0.7) 10/02/17 07:00 Baso # (Auto) 0.01 K/mm3 (0.0-2.0) 10/02/17 07:00 PT 12.9 SECONDS (9.4-12.5) H 10/01/17 05:30 INR 1.12 (0.93-1.08) H 10/01/17 05:30 APTT 34.0 Seconds (25.1-36.5) 10/01/17 05:30 pO2 67 mm/Hg (30-55) H 09/29/17 18:07 VBG pH 7.26 (7.32-7.43) L 09/29/17 18:07 VBG pCO2 65.0 (40-60) H 09/29/17 18:07 VBG HCO3 29.6 mmol/l (21-28) H 09/29/17 18:07 VBG Total CO2 31.6 mmol.L (22-28) H 09/29/17 18:07 VBG O2 Sat (Calc) 94.5 % (40-65) H 09/29/17 18:07 VBG Base Excess 0.8 mmol/L (0.0-2.0) 09/29/17 18:07 VBG Potassium 4.0 mmol/L (3.6-5.2) 09/29/17 18:07 Sodium 140.0 mmol/L (132-148) 09/29/17 18:07 Chloride 108.0 mmol/L (98-107) H 09/29/17 18:07 Glucose 87 mg/dl (65-105) 09/29/17 18:07 Lactate 1.6 mmol/L (0.7-2.1) 09/29/17 18:07 FiO2 21.0 % 09/29/17 18:07 Sodium 137 mmol/L (132-148) 10/02/17 07:00 Potassium 4.8 mmol/L (3.6-5.0) 10/02/17 07:00 Chloride 107 mmol/L (98-107) 10/02/17 07:00 Carbon Dioxide 25 mmol/L (21-33) 10/02/17 07:00 Anion Gap 10 (10-20) 10/02/17 07:00 BUN 16 mg/dL (7-21) 10/02/17 07:00 Creatinine 0.9 mg/dl (0.7-1.2) 10/02/17 07:00 Est GFR ( Amer) > 60 10/02/17 07:00 Est GFR (Non-Af Amer) > 60 10/02/17 07:00 POC Glucose (mg/dL) 149 mg/dL (65-110) H 10/02/17 11:39 Random Glucose 211 mg/dL (70-110) H 10/02/17 07:00 Hemoglobin A1c 13.0 % (4.2-6.5) H 09/30/17 06:00 Calcium 9.2 mg/dL (8.4-10.5) 10/02/17 07:00 Phosphorus 3.2 mg/dL (2.5-4.5) 10/01/17 05:30 Magnesium 2.0 mg/dL (1.7-2.2) 10/01/17 05:30 Total Bilirubin 0.6 mg/dL (0.2-1.3) 10/02/17 07:00 AST 50 U/L (14-36) H D 10/02/17 07:00 ALT 52 U/L (7-56) 10/02/17 07:00 Alkaline Phosphatase 82 U/L (38-126) 10/02/17 07:00 Troponin I 0.02 ng/mL D 10/01/17 05:30 Total Protein 5.7 g/dL (5.8-8.3) L 10/02/17 07:00 Albumin 3.1 g/dL (3.0-4.8) 10/02/17 07:00 Globulin 2.7 gm/dL 10/02/17 07:00 Albumin/Globulin Ratio 1.2 (1.1-1.8) 10/02/17 07:00 Triglycerides 123 mg/dL (35-160) 09/30/17 06:00 Cholesterol 157 mg/dL (130-200) 09/30/17 06:00 LDL Cholesterol Direct 99 mg/dL (0-129) 09/30/17 06:00 HDL Cholesterol 33 mg/dL (29-60) 09/30/17 06:00 Amylase 48 U/L (35-125) 09/30/17 06:00 Lipase 85 U/L (23-300) 09/30/17 06:00 Thyroxine (T4) 6.3 ug/dL (5.5-11.0) 09/30/17 06:00 TSH 3rd Generation 3.25 mIU/mL (0.46-4.68) 09/30/17 06:00 Venous Blood Potassium 4.0 mmol/L (3.6-5.2) 09/29/17 18:07 - Hospital Course Hospital Course: Heme-onc Progress Note, Lalo Ari DO, PGY-2 IM This is a 72 yo H with PMH of CAD, DM, HTN, a-fib, anxiety, Breast CA, varicose veins, and asthma who presented to [facility] with worsening abdominal pain, 6 months duration, but acutely worsening in last 3-4 weeks. While here, she was seen by GI and Surgery, who concurred on surgical management for her Biliary colic. She underwent Lap-liza yesterday (today POD #1), without complication, and diet post-op was advanced as tolerated. Due to her limited dietary status but poorly controlled DM (A1c 13), Endo was consulted for management and home regimen recommendations. As per Endo, while on restrained/limited diet, to take Humalog 10 units with meals and Lantus 20 units nightly, and to resume regular regimen after resuming regular dietary habits. Patient was relayed these instructions, and was also instructed to follow up with Surgery in 1-2 weeks and to follow up with her PMD within 1 week of discharge. Patient and at bedside expressed understanding and agreement with these instructions. All questions were answered to their satisfaction, and then patient was discharged to home. Patient seen, reviewed, and discussed with attending, Dr. Zabala Discharge Exam - Head Exam Head Exam: ATRAUMATIC, NORMOCEPHALIC - Additional Findings Additional findings: - Constitutional Appears: Non-toxic, No Acute Distress, lethargic - Head Exam Head Exam: ATRAUMATIC, NORMAL INSPECTION, NORMOCEPHALIC - Eye Exam Eye Exam: EOMI, Normal appearance. absent: Conjunctival injection, Scleral icterus Pupil Exam: absent: Irregular, Unequal - ENT Exam ENT Exam: Mucous Membranes Moist, Normal Exam - Neck Exam Neck Exam: Full ROM, Normal Inspection - Respiratory Exam Respiratory Exam: Clear to Ausculation Bilateral, NORMAL BREATHING PATTERN. absent: Accessory Muscle Use, Chest Wall Tenderness, Decreased Breath Sounds, Rales, Rhonchi, Wheezes - Cardiovascular Exam Cardiovascular Exam: Irregular Rhythm, +S1, +S2. absent: Bradycardia, Tachycardia, REGULAR RHYTHM, JVD, RRR, +S4 - GI/Abdominal Exam GI & Abdominal Exam: Bowel sounds present, tenderness (diffusely but most prominent at incision sites). absent: Distended, Firm, Rigid - Extremities Exam Extremities Exam: Normal Capillary Refill, Normal Inspection. absent: Calf Tenderness, Pedal Edema (wearing knee high stockings), Tenderness - Neurological Exam Neurological Exam: Awake and alert, following all commands appropriately, motor appears grossly intact and equal bilaterally - Psychiatric Exam Psychiatric exam: Normal Affect, Normal Mood - Skin Skin Exam: Dry, Intact, Normal Color, Warm Discharge Plan - Follow Up Plan Condition: STABLE Disposition: HOME/ ROUTINE Instructions: Acute Abdomen (Belly Pain), Adult (DC), Diabetic Hyperglycemia ( DC) Additional Instructions: call to follow up martínez Stuart (Surgeon) in 1-2 weeks -No Heavy lifting >15-20 lbs for 4 weeks OK to take shower tomorrow. Keep the glue or steristrips (white tape) on until they fall off. Until you resume eating as normal, please use 20 units of Levemir at night and 10 units of Humalog with meals. When you resume eating as normal, please resume your normal regimen Resume all other home meds as prescribed. Please follow up with your PMD within 1 week of discharge. Please return to the hospital if you experience new or concerning symptoms Referrals: Tl Stuatr MD [Staff Provider] - Rosmery Go MD [Primary Care Provider] -
--- NOTE | 2017-10-02 16:32 | CP.PCM.PN ---
Subjective - Date & Time of Evaluation Date of Evaluation: 10/02/17 Time of Evaluation: 09:35 - Subjective Subjective: Seen and examined at the bedside earlier today, chart reviewed. Patient is postop day #1 with lap cholecystectomy with attempted IOC., There was tight small cystic duct unable to fully inject into CBD after multiple attempts it was aborted. The patient denies nausea, vomiting, does have postop pain but tolerable. She is currently eating breakfast, no complaints. She is passing gas, no flatus or BM. She is to get glycerin and she is on Badger test. Patient is back on aliquots. No acute overnight events reported by patient or nursing. Objective - Vital Signs/Intake and Output Vital Signs (last 24 hours): Temp Pulse Resp BP Pulse Ox 98.9 F 75 20 151/62 H 99 10/02/17 07:20 10/02/17 10:00 10/02/17 07:20 10/02/17 09:16 10/02/17 07:20 Intake and Output: 10/02/17 10/02/17 06:59 18:59 Intake Total 720 Balance 720 - Medications Medications: Current Medications Alprazolam (Xanax) 0.25 mg PO TID PRN; Protocol PRN Reason: Anxiety Stop: 10/08/17 14:01 Last Admin: 10/01/17 21:53 Dose: 0.25 mg Anastrozole (Arimidex 1 Mg Tab) 1 mg PO HS [facility] Last Admin: 10/01/17 22:06 Dose: 1 mg Apixaban (Eliquis) 2.5 mg PO BID [facility] PRN Reason: Protocol Last Admin: 10/02/17 09:13 Dose: 2.5 mg Enoxaparin Sodium (Lovenox) 85 mg SC Q12H [facility] PRN Reason: Protocol Last Admin: 10/02/17 10:59 Dose: 85 mg Folic Acid (Folic Acid) 1 mg PO DAILY [facility] Last Admin: 10/02/17 09:13 Dose: 1 mg Home Med (Home Med) 1 unit PO QPM [facility] Home Med (Home Med) 1 unit PO HS [facility] Last Admin: 10/01/17 21:52 Dose: 1 unit Hydralazine HCl (Apresoline) 10 mg IVP Q6 PRN PRN Reason: for SBP>170 Last Admin: 10/02/17 05:04 Dose: 10 mg Hydralazine HCl (Apresoline) 5 mg IVP ONCE PRN PRN Reason: Systolic Blood Pressure Sodium Chloride (Sodium Chloride 0.9%) 1,000 mls @ 100 mls/hr IV .Q10H [facility] Last Admin: 10/01/17 23:48 Dose: 100 mls/hr Insulin Detemir (Levemir) 20 unit SC HS [facility] Insulin Human Lispro (Humalog Low) 0 units SC ACHS [facility] PRN Reason: Protocol Last Admin: 10/02/17 11:41 Dose: Not Given Insulin Human Lispro (Humalog) 10 units SC AC [facility] Last Admin: 10/02/17 11:55 Dose: 10 units Ketorolac Tromethamine (Toradol) 15 mg IVP Q6 PRN PRN Reason: Pain, Mild (1-3) Losartan Potassium (Cozaar) 100 mg PO DAILY [facility] Last Admin: 10/02/17 09:11 Dose: 100 mg Metoclopramide HCl (Reglan) 10 mg IV ONCE PRN PRN Reason: Nausea/Vomiting Metoprolol Succinate (Toprol Xl) 12.5 mg PO QAM [facility] Last Admin: 10/02/17 09:16 Dose: 12.5 mg Morphine Sulfate (Morphine) 2 mg IVP Q3H PRN PRN Reason: Pain, severe (8-10) Last Admin: 10/02/17 11:55 Dose: 2 mg Ondansetron HCl (Zofran Odt) 4 mg PO Q6H PRN PRN Reason: Nausea/Vomiting Last Admin: 10/01/17 12:17 Dose: 4 mg Pantoprazole Sodium (Protonix Ec Tab) 40 mg PO 0600 [facility] Last Admin: 10/02/17 05:03 Dose: 40 mg Tramadol HCl (Ultram) 50 mg PO Q6 PRN PRN Reason: Pain, moderate (4-7) Last Admin: 10/02/17 07:44 Dose: 50 mg Ursodiol (Actigall) 300 mg PO DAILY [facility] Last Admin: 10/02/17 09:10 Dose: 300 mg - Labs Labs: 10/02/17 07:00 10/02/17 07:00 PT 12.9 SECONDS (9.4-12.5) H 10/01/17 05:30 INR 1.12 (0.93-1.08) H 10/01/17 05:30 APTT 34.0 Seconds (25.1-36.5) 10/01/17 05:30 - Constitutional Appears: No Acute Distress - Head Exam Head Exam: NORMOCEPHALIC - Eye Exam Eye Exam: Normal appearance. absent: Scleral icterus - ENT Exam ENT Exam: Mucous Membranes Moist - Respiratory Exam Respiratory Exam: NORMAL BREATHING PATTERN. absent: Respiratory Distress - Cardiovascular Exam Cardiovascular Exam: +S1, +S2 - GI/Abdominal Exam GI & Abdominal Exam: Distended (obese, lap site w/ dermabond, dry and intact no erythema. ), Soft, Tenderness, Normal Bowel Sounds. absent: Guarding, Rebound - Extremities Exam Extremities Exam: absent: Calf Tenderness, Pedal Edema - Neurological Exam Neurological Exam: Alert, Awake, Oriented x3 Assessment and Plan - Assessment and Plan (Free Text) Assessment: Assessment: Status post laparoscopic cholecystectomy with attempted IOC Abdominal pain, likely secondary to biliary colic Obesity Gastroparesis History of atrial fibrillation History of peptic ulcer disease History of diabetes mellitus Plan: on heart healthy diet Eliquis resumed Continue protonix monitor H/H Monitor LFTs on home med Linzess Seen and discussed with Dr. Nicole.
--- NOTE | 2017-10-02 19:05 | PN ---
DATE: 10/02/2017 LOCATION: Room 361, bed 1. REASON FOR CONSULTATION AND FOLLOWUP: Cardiac risk stratification for cholecystectomy, paroxysmal atrial fibrillation, hypercoagulable state. SUBJECTIVE: Patient is postop cholecystectomy. Denies chest pain, shortness of breath, or palpitation. Complaining of abdominal pain due to surgery. PHYSICAL EXAMINATION: VITAL SIGNS: Blood pressure 151/62, respirations 20, pulse is 67, temperature 98.9. HEENT: Head normocephalic. Eyes: Pupils normal. Conjunctivae slightly pale. NECK: JVP low. Carotid are equal. THORAX: AP diameter normal. LUNGS: Clear. CARDIOVASCULAR: S1 and S2. ABDOMEN: Surgery as mentioned, post cholecystectomy. EXTREMITIES: No clubbing. No cyanosis. LABORATORY DATA: WBC 6.5, hemoglobin 10.9, hematocrit 35.4, and platelets 182. Sodium 137, potassium 4.8. BUN 16, creatinine 0.9. Random sugar 149. AST 50, ALT 52. Total protein 5.7, albumin 3.1. 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 Previously, cardiac catheterization was normal. PLAN: Patient on Actigall 300 mg p.o. daily, Cozaar 100 mg daily, Eliquis 2.5 mg b.i.d., folic acid 1 mg daily, insulin as ordered, Lovenox 85 mg subq every 12 hours, metoprolol succinate 12.5 mg p.o. every morning, Xanax 0.25 p.o. t.i.d. p.r.n. We will follow with you. Presently, cardiac status stable. Emerald Beverly MD
[2017-10-02] MEDS ORDERED: Insulin Detemir 100 units/ml Vial (Levemir) SC SCH (22:00)
--- NOTE | 2017-10-03 06:40 | CP.PCM.PN ---
Subjective - Date & Time of Evaluation Date of Evaluation: 09/30/17 Time of Evaluation: 22:00 (Seen earlier) - Subjective Subjective: draft xanax Objective - Vital Signs/Intake and Output Vital Signs (last 24 hours): Temp Pulse Resp BP Pulse Ox 98.9 F 75 20 151/62 H 99 10/02/17 07:20 10/02/17 10:00 10/02/17 07:20 10/02/17 09:16 10/02/17 07:20 - Labs Labs: 10/02/17 07:00 10/02/17 07:00 PT 12.9 SECONDS (9.4-12.5) H 10/01/17 05:30 INR 1.12 (0.93-1.08) H 10/01/17 05:30 APTT 34.0 Seconds (25.1-36.5) 10/01/17 05:30
--- NOTE | 2017-10-03 06:41 | CP.PCM.PN ---
Subjective - Date & Time of Evaluation Date of Evaluation: 10/01/17 Time of Evaluation: 06:30 (Seen earlier) - Subjective Subjective: draft ekg Objective - Vital Signs/Intake and Output Vital Signs (last 24 hours): Temp Pulse Resp BP Pulse Ox 98.9 F 75 20 151/62 H 99 10/02/17 07:20 10/02/17 10:00 10/02/17 07:20 10/02/17 09:16 10/02/17 07:20 - Labs Labs: 10/02/17 07:00 10/02/17 07:00 PT 12.9 SECONDS (9.4-12.5) H 10/01/17 05:30 INR 1.12 (0.93-1.08) H 10/01/17 05:30 APTT 34.0 Seconds (25.1-36.5) 10/01/17 05:30
== END 2017-10-02 16:43 | disposition home or self-care (01) | DRG 418 ==
LOC: ED 16:55 → ERH 17:30 → 3RNO 20:37
PROVIDERS: ADMIT Family Medicine; ATTEND Family Medicine
PROC: 0FT44ZZ Resection of Gallbladder, Percutaneous Endoscopic Approach (ICD-10-PCS; principal; 2017-10-01 07:30)
DX: K80.10 Calculus of gallbladder with chronic cholecystitis without obstruction (principal); D68.59 Other primary thrombophilia; E11.65 Type 2 diabetes mellitus with hyperglycemia; J44.9 Chronic obstructive pulmonary disease, unspecified; I48.0 Paroxysmal atrial fibrillation; I11.9 Hypertensive heart disease without heart failure; E11.51 Type 2 diabetes mellitus with diabetic peripheral angiopathy without gangrene; E11.43 Type 2 diabetes mellitus with diabetic autonomic (poly)neuropathy; K31.84 Gastroparesis; I25.10 Atherosclerotic heart disease of native coronary artery without angina pectoris; I49.3 Ventricular premature depolarization; I83.90 Asymptomatic varicose veins of unspecified lower extremity; F41.9 Anxiety disorder, unspecified; E78.5 Hyperlipidemia, unspecified; E66.9 Obesity, unspecified; K59.09 Other constipation; Z85.3 Personal history of malignant neoplasm of breast; Z79.4 Long term (current) use of insulin; Z79.01 Long term (current) use of anticoagulants; Z87.11 Personal history of peptic ulcer disease; Z86.718 Personal history of other venous thrombosis and embolism; Z86.711 Personal history of pulmonary embolism; Z68.33 Body mass index [BMI] 33.0-33.9, adult; Z92.21 Personal history of antineoplastic chemotherapy; Z92.3 Personal history of irradiation

== ENCOUNTER 2018-10-21 17:45 | Outpatient (CLI) | payer MEDICARE, BC | END 2018-10-21 17:46 | disposition home or self-care (01) | LOC: RAD 17:45 ==